=== PATIENT | female | born 1970 | race Caucasian/White ===

== ENCOUNTER → 2020-04-04 | Outpatient (CLI) | payer BC | LOC: RAD 12:42 | PROVIDERS: ATTEND Obstetrics & Gynecology | DX: Z12.31 Encounter for screening mammogram for malignant neoplasm of breast (principal) | CPT/HCPCS: 77063; 77067 ==

== ENCOUNTER 2020-04-25 05:39 | Outpatient (RCR) | payer BC ==
[~2020-04-25] VITALS: Ht 172.7 cm; Wt 70.5 kg
[~2020-04-25 05:39] MED LIST: ADAL20KI SQ; ASCO-262 PO; BACI1TAB3 PO; CYAN100071 PO; SIMV20TA26 PO; bcp PO
== END 2020-04-25 13:28 | disposition home or self-care (01) ==
LOC: PREOP 05:39
PROVIDERS: ATTEND Obstetrics & Gynecology
DX: Z01.818 Encounter for other preprocedural examination (principal); N93.8 Other specified abnormal uterine and vaginal bleeding; Z20.828 Contact with and (suspected) exposure to other viral communicable diseases
CPT/HCPCS: 87635

== ENCOUNTER 2020-04-28 12:10 | Day surgery (SDC) | payer BC ==
[2020-04-28] VITALS (9 sets, daily range): BP systolic 117–159; BP diastolic 68–109
[~2020-04-28] VITALS: Ht 172.7 cm; Wt 70.5 kg
[2020-04-28] MEDS ORDERED: LACTATED RINGERS 1,000 ML IV PRN (12:44)
[2020-04-28] MEDS ORDERED: ceFAZolin INJECTION 1,000 MG in WATER (STERILE) FOR INJECTION 10 ML IV ONE (12:45)
[2020-04-28] MEDS ORDERED: MIDAZOLAM 2 MG/2 ML (VERSED) VIAL ONE (13:00)
[2020-04-28] MEDS ORDERED: proPOfol 200 MG/20 ML (DIPRIVAN) VIAL IV ONE (13:00)
[2020-04-28] MEDS ORDERED: LIDOCAINE PF 2% 5 ML (XYLOCAINE) VIAL ONE (13:00)
[2020-04-28] MEDS ORDERED: SEVOFLURANE (ULTANE) 15 ML INHAL SOLN ONE ×3 (13:00→14:17)
[2020-04-28] MEDS ORDERED: fentaNYL INJECTION 100 MCG/2 ML AMP ONE (13:00)
[2020-04-28 13:06] LABS: BASOPHILS # (AUTO) 0.1 10^3/uL (0.0-0.1); BASOPHILS % (AUTO) 1 % (0-10); EOSINOPHILS # (AUTO) 0.7 10^3/uL (0.0-0.3); EOSINOPHILS % (AUTO) 7 % (0-10); HEMATOCRIT 38 % (35-52); HEMOGLOBIN 12.5 G/DL (11.5-16.0); LYMPHOCYTES # (AUTO) 2.9 X 10^3 (1.0-4.0); LYMPHOCYTES % (AUTO) 28 % (12-44); MEAN CORPUSCULAR HEMOGLOBIN 28 PG (25-34); MEAN CORPUSCULAR HGB CONC 33 G/DL (32-36); MEAN CORPUSCULAR VOLUME 83 FL (80-99); MEAN PLATELET VOLUME 10.4 FL (7.4-10.4); MONOCYTES # (AUTO) 0.9 X 10^3 (0.0-1.0); MONOCYTES % (AUTO) 8 % (0-12); NEUTROPHILS % (AUTO) 57 % (42-75); PLATELET COUNT 342 10^3/uL (130-400); RED CELL DISTRIBUTION WIDTH 15.4 % (10.0-14.5); WHITE BLOOD COUNT 10.6 10^3/uL (4.3-11.0)
--- OUTSIDE RECORDS SUMMARY | 2020-04-28 13:13 | XMS REPORT | CCD ---
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 Role Phone PP Unavailable CCM Unavailable Summary Purpose Interface Exchange Insurance Providers Payer name Policy type / Coverage type Covered republican ID Effective Begin Date Effective End Date Blue Cross Blue Shield [facility] e Cross/Blue Shield [id number] Un known Family history Father Diagnosis Age At Onset Hypothyroid Unknown Hypertension Unknown Side Diagnosis Age At Onset Breast cancer Unknown Mother Diagnosis Age At Onset Cancer Unknown Irritable bowel syndrome Unknown Sister Diagnosis Age At Onset No Family Disease Entered N/A Social History Social History Element Codes Description Effective Dates Number of children in household Unknown 2 03/09/2012 Employment Unknown Curre ntly employed works in [employer] at [employer] in [email or web address] 03/09/[address]: 832836020 Nonsmoker 03/09/[address]: 393916034 Never drinks alcohol 03/09/2012 Allergies, Adverse Reactions, Alerts Substance Reaction Codes Entered Date Inactivated Date Status biaxin RxNorm: 90474 03/09/2012 No Inactive Date Active Past Medical History Illness Codes Condition Status Onset Date Resolved Date Acute laryngopharyng itis ICD-9: 465.0 ICD-10: J06.0 Active 11/23/2018 Unknown Dysuria ICD-9: 788.1 ICD-10: R30.0 Active 04/13/2018 Unknown Other allergic rhinitis ICD-9: 477.8 ICD-10: J30.89 Active 11/23/2018 Unknown Encounter for gyneco logical examination (general) (routine) without abnormal findings ICD-9: V72.31 ICD-10: Z01.419 Active 10/16/2016 Unknown Mixed hyperlipidemia ICD-9: 272.2 ICD-10: E78.2 Active 07/23/2018 Unknown Muscle spasm of back ICD-9: 724.8 ICD-10: M62.830 Active 07/23/2018 Unknown Encounter for genera l adult medical examination with abnormal findings ICD-9: V70.0 ICD-10: Z00.01 Active 11/07/2017 Unknown Other ulcerative col itis without complications ICD-9: 556.8 ICD-10: K51.80 Active 11/07/2017 Unknown Acute bronchitis, un specified ICD-9: 466.0 ICD-10: J20.9 Active 11/04/2016 Unknown Cough ICD-9: 786.2 ICD-10: R05 Active 11/04/2016 Unknown Poison philip ICD-9: 692.6 Active 06/13/2015 Unknow n ACUTE PHARYNGITIS ICD-9: 462 Active 11/01/2014 Unknown Dysplastic nevus of trunk ICD-9: 216.5 Active 07/07 Unknown ROUTINE GYNE EXAM ICD-9: V72.31 Active 06/15/2014 Unknown Skin lesion ICD-9: 709.9 Active 06/15/2014 Unknow n Hyperlipidemia Unknown Active 03/09/2012 Unknow n Ulcerative colitis Unknown Active 03/09/2012 Unknown Problems Condition Codes Effectiv e Dates Condition Status Acute laryngopharyng itis ICD-9: 465.0 ICD-10: J06.0 11/23/2018 Active Dysuria ICD-9: 788.1 ICD-10: R30.0 04/13/2018 Active Other allergic rhinitis ICD-9: 477.8 ICD-10: J30.89 11/23/2018 Active Encounter for gyneco logical examination (general) (routine) without abnormal findings ICD-9: V72.31 ICD-10: Z01.419 10/16/2016 Active Mixed hyperlipidemia ICD-9: 272.2 ICD-10: E78.2 07/23/2018 Active Muscle spasm of back ICD-9: 724.8 ICD-10: M62.830 07/23/2018 Active Encounter for genera l adult medical examination with abnormal findings ICD-9: V70.0 ICD-10: Z00.01 11/07/2017 Active Other ulcerative col itis without complications ICD-9: 556.8 ICD-10: K51.80 11/07/2017 Active Acute bronchitis, un specified ICD-9: 466.0 ICD-10: J20.9 11/04/2016 Active Cough ICD-9: 786.2 ICD-10: R05 11/04/2016 Active Poison philip ICD-9: 692.6 06/13/2015 Active ACUTE PHARYNGITIS ICD-9: 462 11/01/2014 Active Dysplastic nevus of trunk ICD-9: 216.5 07/26/2014 Active ROUTINE GYNE EXAM ICD-9: V72.31 06/15/2014 Active Skin lesion ICD-9: 709.9 06/15/2014 Active Hyperlipidemia Unknown 03/09/2012 Active Ulcerative colitis Unknown 03/09/2012 Active Medications Medication Codes Instruc tions Start Date Stop Date Sta tus Fill Instructions Augmentin 875 mg-125 mg tablet RxNorm: 694932 1 Tablet(s) PO BID 11/23/2018 12/02/2018 Active Keflex 500 mg capsule RxNorm: 987930 1 Capsule(s) PO TID 07/24/2018 07/30/2018 Inactive cyclobenzaprine 5 mg tablet RxNorm: 692094 1 Tablet(s) PO TID as needed muscle spasms 07/24/2018 07/30/2018 Inactive simvastatin 20 mg ta blet RxNorm: 697006 1 Tablet(s) PO daily 07/23/2018 10/20/2018 Inactive simvastatin 10 mg ta blet RxNorm: 891823 TAKE 1 TABLET BY MOUT H ONCE A DAY 04/09/2018 10/05/2018 In active simvastatin 10 mg ta blet RxNorm: 830076 TAKE 1 TABLET BY MOUT H ONCE A DAY 12/12/2017 03/11/2018 In active simvastatin 10 mg ta blet RxNorm: 217888 Tablet(s) TAKE 1 TABL ET BY MOUTH ONCE A DAY 06/12/2017 12/08/2017 In active simvastatin 10 mg ta blet RxNorm: 996971 Tablet(s) TAKE 1 TABL ET BY MOUTH ONCE A DAY 03/05/2017 04/15/2018 In active cefdinir 300 mg capsule RxNorm: 267430 1 Capsule(s) PO BID 11/08/2016 11/07/2016 Inactive cefdinir 300 mg capsule RxNorm: 418438 1 Capsule(s) PO BID 11/08/2016 11/14/2016 Inactive Kenalog 40 mg/mL cielo pension for injection RxNorm: 4686871 1 Milliliter(s) Inj 11/04/2016 11/04/2016 In active Zithromax Z-Remy 250 mg tablet RxNorm: 585060 1 Tablet(s) PO UD 11/04/2016 11/08/2016 Inactive zpack Phenergan with Codei ne Syrup RxNorm: 5-10 Milliliter(s) PO Q6 PRN 11/04/2016 11/03/2017 Inactive simvastatin 10 mg ta blet RxNorm: 832781 Tablet(s) TAKE 1 TABL ET BY MOUTH ONCE A DAY 08/14/2016 02/09/2017 In active simvastatin 10 mg ta blet RxNorm: 240508 1 Tablet(s) PO daily TAKE 1 TABLET BY MOUTH ONCE A DAY 07/25/2015 08/13/2016 Inactive [SAVINGS FOR UNINSURED ESA ENTS -- BIN:[id number], PCN: ASPROD1, Group: [id number], ID# [id number], Process claim through [employer], for questions: . THIS IS NOT INSURANCE.] prednisone 10 mg tab lets in a dose pack RxNorm: 209751 Tablet(s) PO UD 06/22/2015 09/05/2015 In active 6-5-4-3-2-1 schedule Kenalog 40 mg/mL cielo pension for injection RxNorm: 5330923 Milliliter(s) Inj 06/14/2015 06/14/2015 In active amoxicillin 500 mg t ablet RxNorm: 183635 1 Tablet(s) PO TID 11/01/2014 11/10/2014 Inactive Bactrim DS 800 mg-16 0 mg tablet RxNorm: 805169 1 Tablet(s) PO BID 06/28/2014 07/04/2014 Inactive [SAVINGS FOR UNINSURED PATIENTS -- BIN:[id number], PCN: ASPROD1, Group: [id number], ID# [id number], Process claim through [employer], for questions: . THIS IS NOT INSURANCE.] Bactrim DS 800 mg-16 0 mg tablet RxNorm: 980880 1 Tablet(s) PO BID 06/28/2014 06/27/2014 Inactive simvastatin 10 mg ta blet RxNorm: 787550 1 Tablet(s) PO daily TAKE 1 TABLET BY MOUTH ONCE A DAY 06/23/2014 07/24/2015 Inactive [SAVINGS FOR UNINSURED ESA ENTS -- BIN:[id number], PCN: ASPROD1, Group: [id number], ID# [id number], Process claim through [employer], for questions: . THIS IS NOT INSURANCE.] Diflucan 150 mg tablet RxNorm: 996228 1 Tablet(s) PO daily 06/17/2014 06/16/2014 Inactive Diflucan 150 mg tablet RxNorm: 193162 1 Tablet(s) PO daily 06/17/2014 06/23/2014 Inactive [SAVINGS FOR UNINSURED PATIENTS -- BIN:0 [id number], PCN: ASPROD1, Group: [id number], ID# [id number], Process claim through [employer], for questions: . THIS IS NOT INSURANCE.] Seasonique 0.15 mg-3 0 mcg (84)/10 mcg(7) tablets,3 month dose pack RxNorm: 975918 1 Tablet(s) PO daily 06/15/2014 09/05/2015 Inactive [SAVINGS FOR UNINSURED EAS ENTS -- BIN:[id number], PCN: ASPROD1, Group: [id number], ID# [id number], Process claim through [employer], for questions: . THIS IS NOT INSURANCE.] simvastatin 10 mg ta blet RxNorm: 284880 Tablet(s) PO TAKE 1 T ABLET BY MOUTH ONCE A DAY 10/25/2013 06/22/2014 Inactive potassium chloride E R 20 mEq tablet,extended release(part/cryst) RxNorm: 4195859 1 Tablet(s) PO daily 11/03/2012 11/16/2012 Inactive potassium chloride E R 20 mEq tablet,extended release(part/cryst) RxNorm: 8716234 1 Tablet(s) PO daily 11/03/2012 11/02/2012 Inactive simvastatin 10 mg ta blet RxNorm: 545309 1 Tablet(s) PO daily 11/03/2012 07/30/2013 Inactive simvastatin 10 mg ta blet RxNorm: 408293 1 Tablet(s) PO daily needs labs 10/14/2012 11/02/2012 In active simvastatin 10 mg ta blet RxNorm: 770949 1 Tablet(s) PO daily 09/24/2011 01/21/2012 Inactive Humira subcutaneous RxNorm: 706442 subcutaneous No Start Date Active Vitamin C 1,000 mg t ablet RxNorm: 004627 1 Tablet(s) PO daily No Start Date Active Vitamin B-12 1,000 m cg tablet RxNorm: 667563 1 Tablet(s) PO daily No Start Date Active Probiotic oral RxNorm: 6205 oral No Start Date Active Remicade 100 mg IV S olution RxNorm: 295178 IV every 8 weeks No Start Date 09/05/2015 Inactive Fish Oil 360 mg-1,20 0 mg capsule RxNorm: 377604 1 Capsule(s) PO BID No Start Date 11/03/2017 Inactive prednisone 10 mg tab lets in a dose pack RxNorm: 435020 Tablet(s) PO UD No Start Date 06/21/2015 Inactive 6-5-4-3-2-1 schedule Medication Administered Medication Codes Instruc tions Start Date Status Kenalog 40 mg/mL suspension for injection RxNorm: 1022824 1Milliliter 11/04/2016 N o longer Active Kenalog 40 mg/mL suspension for injection RxNorm: 8101875 Milliliter 06/14/2015 No longer Active Immunizations No Immunization data Assessments Condition Codes Effectiv e Dates Acute laryngopharyngitis ICD-10: J06 .0 ICD-9: 465.0 11/23/2018 Other allergic rhinitis ICD-10: J30. 89 ICD-9: 477.8 11/23/2018 Dysuria ICD-10: R30.0 ICD-9: 788.1 11/23/2018 Encounter for gynecological examination (general) (routine) without abnormal findings ICD-10: Z01.419 ICD-9: V72.31 11/09/2018 Muscle spasm of back ICD-10: M62.830 ICD-9: 724.8 07/23/2018 Mixed hyperlipidemia ICD-10: E78.2 ICD-9: 272.2 07/23/2018 Encounter for general adult medical exam ination with abnormal findings ICD-10: Z00.01 ICD-9: V70.0 11/07/2017 Other ulcerative colitis without complications ICD-10: K51.80 ICD-9: 556.8 11/07/2017 Acute bronchitis, unspecified ICD-10 : J20.9 ICD-9: 466.0 11/04/2016 Cough ICD-10: R05 ICD-9: 786.2 11/04/2016 Poison philip ICD-9: 692.6 06/14/2015 ACUTE PHARYNGITIS ICD-9: 462 11/01/2014 Skin lesion ICD-9: 709.9 07/26/2014 Dysplastic nevus of trunk ICD-9: 216.5 07/26/2014 ROUTINE GYNE EXAM ICD-9: V72.31 06/15/2014 Reason For Visit Reason For Visit Effective Dates Notes sinus congestion 11/23/2018 well woman exam (40-65 years) 11/09/2018 flank pain 07/23/2018 flank pain 04/16/2018 well woman exam (40-65 years) 11/07/2017 chest tightness 11/04/2016 well woman exam (40-65 years) 10/17/2016 well woman exam (40-65 years) 09/06/2015 sore throat 11/01/2014 office procedure 07/26/2014 dark areas on back well woman exam (40-65 years) 06/15/2014 well woman exam (40-65 years) 07/15/2013 well woman exam (40-65 years) 03/09/2012 Results Observation Observation Code Item Item Code Result Date Urine Culture Ucult Comp lete >100,000 col/ml aerobic grow th sent to ref lab 11/24/2018 Culture Urine [id number] URI NE CULTURE SEE NOTES 07/30/2018 Urine Culture Ucult Prel iminary NO Growth Day 1 07/29 Urine Culture Ucult Comp lete Growth of aerobe sent to ref lab 07/29/2018 GC/CHL PRB [id number] CHLM PROBE NEG 06/17/2014 GC/CHL PRB [id number] GC NM OBE NEG 06/17/2014 GC/CHL PRB [id number] CHLM PROBE NEG 07/16/2013 GC/CHL PRB 1008723 GC NM OBE NEG 07/16/2013 Review of Systems System Result Effective Dates Constitutional recent illness 11/23/2018 Constitutional chills Constitutional No diaphoresis 11/23/2018 Constitutional fever Eyes No eye erythema Ears/Nose/Throat/Neck nasal allergies 11/23/2018 Ears/Nose/Throat/Neck nasal discharge 11/23/2018 Ears/Nose/Throat/Neck postnasal drip 11/23/2018 Ears/Nose/Throat/Neck sinus congestion 11/23/2018 Ears/Nose/Throat/Neck sore throat 11/23/2018 Cardiovascular No chest pain/pressure 11/23/2018 Cardiovascular No dyspnea 11/23/2018 Respiratory No chest congestion 11/23/2018 Respiratory cough 2018 Respiratory No dyspnea 0 11/23/2018 Gastrointestinal No constipation 11/23/2018 Gastrointestinal No diarrhea 11/23/2018 Gastrointestinal No nausea 11/23/2018 Gastrointestinal No vomiting 11/23/2018 Dermatologic No rash Neurologic No alteration of consciousness 11/23/2018 Neurologic No mental status change 11/23/2018 Genitourinary/Nephrology dysuria 11/23/2018 Constitutional No recent illness 11/09/2018 Constitutional No chills 11/09/2018 Constitutional No diaphoresis 11/09/2018 Constitutional No fever 11/09/2018 Eyes No blindness 2018 Ears/Nose/Throat/Neck No nasal allergies 11/09/2018 Ears/Nose/Throat/Neck No nasal discharge 11/09/2018 Cardiovascular No chest pain/pressure 11/09/2018 Cardiovascular No dyspnea 11/09/2018 Cardiovascular No edema 11/09/2018 Respiratory No chest congestion 11/09/2018 Respiratory No cough 01/2019 Respiratory No dyspnea 0 11/09/2018 Gastrointestinal No abdominal pain 11/09/2018 Gastrointestinal No constipation 11/09/2018 Gastrointestinal No diarrhea 11/09/2018 Gastrointestinal No nausea 11/09/2018 Gastrointestinal No vomiting 11/09/2018 Genitourinary/Nephrology No dysuria 11/09/2018 Musculoskeletal No joint complaint 11/09/2018 Dermatologic No rash 01/2019 Neurologic No alteration of consciousness 11/09/2018 Neurologic No mental status change 11/09/2018 Eyes No eye discharge Eyes No eye erythema Cardiovascular No chest pain/pressure 07/23/2018 Cardiovascular No dyspnea 07/23/2018 Cardiovascular No edema 07/23/2018 Respiratory No productive sputum 07/23/2018 Respiratory No cough Gastrointestinal No abdominal pain 07/23/2018 Gastrointestinal No constipation 07/23/2018 Gastrointestinal No diarrhea 07/23/2018 Genitourinary/Nephrology dysuria 07/23/2018 Genitourinary/Nephrology No pelvic pain 07/23/2018 Genitourinary/Nephrology urinary urgency 07/23/2018 Musculoskeletal No joint complaint 07/23/2018 Dermatologic No rash Neurologic No alteration of consciousness 07/23/2018 Constitutional recent illness 07/23/2018 Constitutional No chills 07/23/2018 Constitutional No diaphoresis 07/23/2018 Constitutional No fever 07/23/2018 Ears/Nose/Throat/Neck No nasal discharge 07/23/2018 Ears/Nose/Throat/Neck No nasal allergies 07/23/2018 Genitourinary/Nephrology flank pain 07/23/2018 Constitutional No recent illness 04/16/2018 Constitutional No anorexia 04/16/2018 Constitutional No night sweats 04/16/2018 Constitutional No chills 04/16/2018 Constitutional No diaphoresis 04/16/2018 Constitutional No fatigue 04/16/2018 Constitutional No fever 04/16/2018 Constitutional No insomnia 04/16/2018 Constitutional No malaise 04/16/2018 Constitutional No weight loss 04/16/2018 Constitutional No weight gain 04/16/2018 Eyes No eye erythema 09/2018 Eyes No eye discharge Ears/Nose/Throat/Neck No dizziness 04/16/2018 Ears/Nose/Throat/Neck No headache 04/16/2018 Cardiovascular No chest pain/pressure 04/16/2018 Cardiovascular No dyspnea 04/16/2018 Cardiovascular No edema 04/16/2018 Respiratory No productive sputum 04/16/2018 Respiratory No cough 09/2018 Gastrointestinal No abdominal pain 04/16/2018 Gastrointestinal No constipation 04/16/2018 Gastrointestinal No diarrhea 04/16/2018 Genitourinary/Nephrology dysuria 04/16/2018 Genitourinary/Nephrology urinary urgency 04/16/2018 Genitourinary/Nephrology No pelvic pain 04/16/2018 Musculoskeletal No joint complaint 04/16/2018 Dermatologic No rash 09/2018 Neurologic No alteration of consciousness 04/16/2018 Musculoskeletal back pain 04/16/2018 Constitutional No recent illness 11/07/2017 Constitutional No chills 11/07/2017 Constitutional No diaphoresis 11/07/2017 Constitutional No fever 11/07/2017 Eyes No eye erythema 11/2017 Ears/Nose/Throat/Neck No nasal discharge 11/07/2017 Ears/Nose/Throat/Neck No nasal allergies 11/07/2017 Cardiovascular No chest pain/pressure 11/07/2017 Cardiovascular No dyspnea 11/07/2017 Cardiovascular No edema 11/07/2017 Respiratory No chest congestion 11/07/2017 Respiratory No cough 11/2017 Respiratory No dyspnea 0 11/07/2017 Gastrointestinal No abdominal pain 11/07/2017 Gastrointestinal No constipation 11/07/2017 Gastrointestinal No diarrhea 11/07/2017 Gastrointestinal No vomiting 11/07/2017 Gastrointestinal No nausea 11/07/2017 Genitourinary/Nephrology No dysuria 11/07/2017 Musculoskeletal No joint complaint 11/07/2017 Dermatologic No rash 11/2017 Neurologic No alteration of consciousness 11/07/2017 Neurologic No mental status change 11/07/2017 Constitutional recent illness 11/04/2016 Constitutional No anorexia 11/04/2016 Constitutional No night sweats 11/04/2016 Constitutional chills Constitutional diaphoresis 11/04/2016 Constitutional fatigue 0 11/04/2016 Constitutional fever Constitutional No insomnia 11/04/2016 Constitutional No malaise 11/04/2016 Constitutional No weight loss 11/04/2016 Constitutional No weight gain 11/04/2016 Dermatologic No rash Dermatologic No sores Neurologic No alteration of consciousness 11/04/2016 Musculoskeletal No joint complaint 11/04/2016 Musculoskeletal No myalgias 11/04/2016 Genitourinary/Nephrology No dysuria 11/04/2016 Gastrointestinal No constipation 11/04/2016 Gastrointestinal No diarrhea 11/04/2016 Respiratory cough 2016 Respiratory No productive sputum 11/04/2016 Cardiovascular No chest pain/pressure 11/04/2016 Ears/Nose/Throat/Neck No dizziness 11/04/2016 Ears/Nose/Throat/Neck headache 11/04/2016 Ears/Nose/Throat/Neck nasal discharge 11/04/2016 Ears/Nose/Throat/Neck otalgia 11/04/2016 Ears/Nose/Throat/Neck sinus congestion 11/04/2016 Ears/Nose/Throat/Neck sore throat 11/04/2016 Eyes No eye discharge Eyes No eye erythema Constitutional No recent illness 10/17/2016 Constitutional No fatigue 10/17/2016 Constitutional No fever 10/17/2016 Constitutional No insomnia 10/17/2016 Eyes No eye discharge Eyes No eye erythema 09/2017 Ears/Nose/Throat/Neck No headache 10/17/2016 Cardiovascular No chest pain/pressure 10/17/2016 Cardiovascular No edema 10/17/2016 Cardiovascular No near-syncope/dizziness 10/17/2016 Cardiovascular No syncope 10/17/2016 Respiratory No productive sputum 10/17/2016 Respiratory No chest congestion 10/17/2016 Respiratory No chest tightness 10/17/2016 Respiratory No cough 09/2017 Respiratory No dyspnea 0 10/17/2016 Gastrointestinal No abdominal pain 10/17/2016 Gastrointestinal No constipation 10/17/2016 Gastrointestinal No diarrhea 10/17/2016 Genitourinary/Nephrology No breast c omplaint 10/17/2016 Genitourinary/Nephrology No dysuria 10/17/2016 Genitourinary/Nephrology No hematuria 10/17/2016 Genitourinary/Nephrology No menopaus al symptoms 10/17/2016 Genitourinary/Nephrology No nocturia 10/17/2016 Genitourinary/Nephrology No Pap smea r abnormality 10/17/2016 Genitourinary/Nephrology No urinary urgenc y 10/17/2016 Genitourinary/Nephrology No urinary frequency 10/17/2016 Genitourinary/Nephrology No urinary incontinence 10/17/2016 Genitourinary/Nephrology No vaginal discharge 10/17/2016 Musculoskeletal No joint complaint 10/17/2016 Neurologic No alteration of consciousness 10/17/2016 Constitutional No recent illness 09/06/2015 Constitutional No fatigue 09/06/2015 Constitutional No fever 09/06/2015 Constitutional No insomnia 09/06/2015 Eyes No eye discharge Eyes No eye erythema 11/2014 Ears/Nose/Throat/Neck No headache 09/06/2015 Cardiovascular No chest pain/pressure 09/06/2015 Cardiovascular No edema 09/06/2015 Cardiovascular No near-syncope/dizziness 09/06/2015 Cardiovascular No syncope 09/06/2015 Respiratory No productive sputum 09/06/2015 Respiratory No chest congestion 09/06/2015 Respiratory No chest tightness 09/06/2015 Respiratory No cough 11/2014 Respiratory No dyspnea 1 11/07/2014 Gastrointestinal No abdominal pain 09/06/2015 Gastrointestinal No constipation 09/06/2015 Gastrointestinal No diarrhea 09/06/2015 Genitourinary/Nephrology No breast c omplaint 09/06/2015 Genitourinary/Nephrology No dysuria 09/06/2015 Genitourinary/Nephrology No hematuria 09/06/2015 Genitourinary/Nephrology No menopaus al symptoms 09/06/2015 Genitourinary/Nephrology No nocturia 09/06/2015 Genitourinary/Nephrology No Pap smea r abnormality 09/06/2015 Genitourinary/Nephrology No urinary urgenc y 09/06/2015 Genitourinary/Nephrology No urinary frequency 09/06/2015 Genitourinary/Nephrology No urinary incontinence 09/06/2015 Genitourinary/Nephrology No vaginal discharge 09/06/2015 Musculoskeletal No joint complaint 09/06/2015 Neurologic No alteration of consciousness 09/06/2015 Constitutional recent illness 11/01/2014 Constitutional No anorexia 11/01/2014 Constitutional No night sweats 11/01/2014 Constitutional No chills 11/01/2014 Constitutional No diaphoresis 11/01/2014 Constitutional No fatigue 11/01/2014 Constitutional No fever 11/01/2014 Constitutional No insomnia 11/01/2014 Constitutional No malaise 11/01/2014 Constitutional No weight loss 11/01/2014 Constitutional No weight gain 11/01/2014 Eyes No eye erythema Eyes No eye discharge Ears/Nose/Throat/Neck No headache 11/01/2014 Ears/Nose/Throat/Neck No nasal allergies 11/01/2014 Ears/Nose/Throat/Neck nasal discharge 11/01/2014 Ears/Nose/Throat/Neck otalgia 11/01/2014 Ears/Nose/Throat/Neck sinus congestion 11/01/2014 Ears/Nose/Throat/Neck sore throat 11/01/2014 Respiratory No productive sputum 11/01/2014 Respiratory No chest congestion 11/01/2014 Respiratory cough 2014 Cardiovascular No chest pain/pressure 11/01/2014 Gastrointestinal No vomiting 11/01/2014 Gastrointestinal No nausea 11/01/2014 Genitourinary/Nephrology No dysuria 11/01/2014 Musculoskeletal No joint complaint 11/01/2014 Dermatologic No sores Dermatologic No rash Constitutional No recent illness 06/15/2014 Constitutional No fatigue 06/15/2014 Constitutional No fever 06/15/2014 Constitutional No insomnia 06/15/2014 Eyes No eye discharge Eyes No eye erythema 07/2014 Ears/Nose/Throat/Neck No headache 06/15/2014 Cardiovascular No chest pain/pressure 06/15/2014 Cardiovascular No edema 06/15/2014 Cardiovascular No near-syncope/dizziness 06/15/2014 Cardiovascular No syncope 06/15/2014 Respiratory No productive sputum 06/15/2014 Respiratory No chest congestion 06/15/2014 Respiratory No chest tightness 06/15/2014 Respiratory No cough 07/2014 Respiratory No dyspnea 0 06/15/2014 Gastrointestinal No abdominal pain 06/15/2014 Gastrointestinal No constipation 06/15/2014 Gastrointestinal No diarrhea 06/15/2014 Genitourinary/Nephrology No breast c omplaint 06/15/2014 Genitourinary/Nephrology No dysuria 06/15/2014 Genitourinary/Nephrology No hematuria 06/15/2014 Genitourinary/Nephrology No menopaus al symptoms 06/15/2014 Genitourinary/Nephrology No nocturia 06/15/2014 Genitourinary/Nephrology No Pap smea r abnormality 06/15/2014 Genitourinary/Nephrology No urinary urgenc y 06/15/2014 Genitourinary/Nephrology No urinary frequency 06/15/2014 Genitourinary/Nephrology No urinary incontinence 06/15/2014 Genitourinary/Nephrology No vaginal discharge 06/15/2014 Musculoskeletal No joint complaint 06/15/2014 Neurologic No alteration of consciousness 06/15/2014 Dermatologic mole change 06/15/2014 Psychiatric No anxiety 0 06/15/2014 Psychiatric No depression 06/15/2014 Cardiovascular No chest pain/pressure 07/15/2013 Cardiovascular No edema 07/15/2013 Cardiovascular No near-syncope/dizziness 07/15/2013 Cardiovascular No syncope 07/15/2013 Constitutional No fatigue 07/15/2013 Constitutional No fever 07/15/2013 Constitutional No insomnia 07/15/2013 Constitutional No recent illness 07/15/2013 Ears/Nose/Throat/Neck No headache 07/15/2013 Eyes No eye discharge Eyes No eye erythema 07/2013 Gastrointestinal No abdominal pain 07/15/2013 Gastrointestinal No constipation 07/15/2013 Gastrointestinal No diarrhea 07/15/2013 Genitourinary/Nephrology No breast c omplaint 07/15/2013 Genitourinary/Nephrology No dysuria 07/15/2013 Genitourinary/Nephrology No hematuria 07/15/2013 Genitourinary/Nephrology No urinary frequency 07/15/2013 Genitourinary/Nephrology No urinary incontinence 07/15/2013 Genitourinary/Nephrology No urinary urgenc y 07/15/2013 Genitourinary/Nephrology No vaginal discharge 07/15/2013 Genitourinary/Nephrology No menopaus al symptoms 07/15/2013 Genitourinary/Nephrology No nocturia 07/15/2013 Genitourinary/Nephrology No Pap smea r abnormality 07/15/2013 Musculoskeletal No joint complaint 07/15/2013 Neurologic No alteration of consciousness 07/15/2013 Respiratory No chest congestion 07/15/2013 Respiratory No chest tightness 07/15/2013 Respiratory No cough 07/2013 Respiratory No dyspnea 1 Respiratory No productive sputum 07/15/2013 Constitutional No fatigue 03/09/2012 Constitutional No fever 03/09/2012 Constitutional No insomnia 03/09/2012 Constitutional No recent illness 03/09/2012 Eyes No eye discharge Eyes No eye erythema 01/2012 Ears/Nose/Throat/Neck No headache 03/09/2012 Cardiovascular No chest pain/pressure 03/09/2012 Cardiovascular No edema 03/09/2012 Cardiovascular No near-syncope/dizziness 03/09/2012 Cardiovascular No syncope 03/09/2012 Respiratory No chest congestion 03/09/2012 Respiratory No chest tightness 03/09/2012 Respiratory No cough 01/2012 Respiratory No dyspnea 0 03/09/2012 Respiratory No productive sputum 03/09/2012 Gastrointestinal No abdominal pain 03/09/2012 Gastrointestinal No constipation 03/09/2012 Gastrointestinal No diarrhea 03/09/2012 Genitourinary/Nephrology No breast c omplaint 03/09/2012 Genitourinary/Nephrology No dysuria 03/09/2012 Genitourinary/Nephrology No hematuria 03/09/2012 Genitourinary/Nephrology No urinary frequency 03/09/2012 Genitourinary/Nephrology No urinary incontinence 03/09/2012 Genitourinary/Nephrology No urinary urgenc y 03/09/2012 Genitourinary/Nephrology No vaginal discharge 03/09/2012 Genitourinary/Nephrology No menopaus al symptoms 03/09/2012 Genitourinary/Nephrology No nocturia 03/09/2012 Genitourinary/Nephrology No Pap smea r abnormality 03/09/2012 Musculoskeletal No joint complaint 03/09/2012 Neurologic No alteration of consciousness 03/09/2012 Physical Exam Exam Name System Name It em Name Status Result Effective Dates Notes Full Exam - ENT Constitutional general appearance Overall: well nourished 11/23/2018 None Full Exam - ENT Constitutional general appearance Overall: well developed 11/23/2018 None Full Exam - ENT Constitutional general appearance Overall: in no acute distress 11/23/2018 None Full Exam - ENT Ears/Nose/Throat otoscopic exam Overall: external auditory canals normal 11/23/2018 None Full Exam - ENT Ears/Nose/Throat otoscopic exam Left tympanic membrane: air-fluid le melanie 11/23/2018 None Full Exam - ENT Ears/Nose/Throat otoscopic exam Right tympanic membrane: air-fluid level 11/23/2018 None Full Exam - ENT Ears/Nose/Throat lips/teeth/gingiva Overall: benign lips 11/23/2018 None Full Exam - ENT Ears/Nose/Throat oropharynx Overall: oral mucosa clear 11/23/2018 None Full Exam - ENT Ears/Nose/Throat oropharynx Posterior Pharynx: clear post nasal drainage 11/23/2018 None Full Exam - ENT Ears/Nose/Throat oropharynx Posterior Pharynx: erythema 11/23/2018 None Full Exam - ENT Respiratory inspection Overall: no retractions 11/23/2018 None Full Exam - ENT Respiratory inspection Overall: normal rate None Full Exam - ENT Respiratory auscultation Overall: breath sounds clear bilater ally 11/23/2018 None Full Exam - ENT Cardiovascular auscultation of heart Rate: normal rate 11/23/2018 None Full Exam - ENT Cardiovascular auscultation of heart Rhythm: regular rhythm 11/23/2018 None Full Exam - ENT Lymphatic palpation of lymph nodes Overall: anterior cervical chain benign 11/23/2018 None Full Exam - ENT Lymphatic palpation of lymph nodes Overall: posterior cervical chain benign 11/23/2018 None Full Exam - ENT Neurologic mood and affect Overall: normal mood 11/23/2018 None Full Exam - ENT Neurologic mood and affect Overall: normal affect 11/23/2018 None Full Exam - ENT Neurologic orientation Overall: oriented to person, place a nd time 11/23/2018 None Full Exam - General 1994 Constitutional general appearance Overall: well developed 11/09/2018 None Full Exam - General 1994 Constitutional general appearance Overall: in no acute distress 11/09/2018 None Full Exam - General 1994 Constitutional general appearance Overall: well nourished 11/09/2018 None Full Exam - General 1995 Eyes conjunctiva/eyelids Overall: conjunctiva clear 11/09/2018 None Full Exam - General 1994 Eyes conjunctiva/eyelids Overall: cornea clear 11/09/2018 None Full Exam - General 1994 Eyes conjunctiva/eyelids Overall: eyelids normal 11/09/2018 None Full Exam - General 1994 Eyes pupils and irises Overall: pupils equal, round, reactive to light and accomodation 11/09/2018 None Full Exam - General 1994 Ears/Nose/Throat otoscopic exam Overall: external auditory canals clear 11/09/2018 None Full Exam - General 1994 Ears/Nose/Throat otoscopic exam Overall: tympanic membranes clear 11/09/2018 None Full Exam - General 1994 Ears/Nose/Throat lips/teeth/gingiva Overall: benign lips 11/09/2018 None Full Exam - General 1994 Ears/Nose/Throat oral cavity/pharynx/larynx Overall: oral mucosa clear 11/09/2018 None Full Exam - General 1994 Ears/Nose/Throat oral cavity/pharynx/larynx Overall: oropharyngeal mucosa clear 11/09/2018 None Full Exam - General 1994 Respiratory auscultation Overall: breath sounds clear bilaterally 11/09/2018 None Full Exam - General 1994 Respiratory respiratory effort/rhythm Overall: no retractions 11/09/2018 None Full Exam - General 1994 Respiratory respiratory effort/rhythm Overall: normal rate 11/09/2018 None Full Exam - General 1994 Cardiovascular auscultation of heart Overall: regular rate 11/09/2018 None Full Exam - General 1994 Cardiovascular auscultation of heart Overall: normal heart sounds 11/09/2018 None Full Exam - General 1994 Abdomen abdominal exam Overall: no tenderness 11/09/2018 None Full Exam - General 1994 Abdomen abdominal exam Overall: normal bowel sounds 11/09/2018 None Full Exam - General 1994 Lymphatic neck nodes Overall: anterior cervical chain benign 11/09/2018 None Full Exam - General 1994 Lymphatic neck nodes Overall: posterior cervical chain benign 11/09/2018 None Full Exam - General 1994 Musculoskeletal gait and station Overall: normal gait 11/09/2018 None Full Exam - General 1994 Musculoskeletal gait and station Overall: normal station 11/09/2018 None Full Exam - General 1994 Musculoskeletal head and neck Overall: head atraumatic 11/09/2018 None Full Exam - General 1994 Neurologic cranial nerves Overall: crainial nerves 2 - 12 grossly intact 11/09/2018 None Full Exam - General 1994 Psychiatric orientation/consciousness Overall: oriented to person, place and time 11/09/2018 None Full Exam - General 1994 Psychiatric mood and affect Overall: normal mood and affect 11/09/2018 None Full Exam - General 1994 Psychiatric appearance Overall: well-groomed, good eye contact 11/09/2018 None Full Exam - General 1994 Genitourinary uterus Overall: normal size 11/09/2018 None Full Exam - General 1994 Genitourinary cervix Motion tenderness: not present 11/09/2018 None Full Exam - General 1994 Genitourinary cervix Overall: no discharge 11/09/2018 None Full Exam - General 1994 Genitourinary labia and vagina Overall: no lesions 11/09/2018 None Full Exam - General 1994 Genitourinary labia and vagina Overall: normal hair distribution 11/09/2018 None Full Exam - General 1994 Genitourinary adnexa/parametria Overall: no tenderness 11/09/2018 None Full Exam - General 1994 Chest/Breast breast/chest inspection Overall: normal chest shape 11/09/2018 None Full Exam - General 1994 Chest/Breast breast/chest inspection Overall: breasts to symmetric and without lesions 11/09/2018 None Full Exam - General 1994 Constitutional general appearance Overall: well developed 07/23/2018 None Full Exam - General 1994 Constitutional general appearance Overall: in no acute distress 07/23/2018 None Full Exam - General 1994 Constitutional general appearance Overall: well nourished 07/23/2018 None Full Exam - General 1994 Eyes conjunctiva/eyelids Overall: conjunctiva clear 07/23/2018 None Full Exam - General 1994 Eyes conjunctiva/eyelids Overall: cornea clear 07/23/2018 None Full Exam - General 1994 Eyes conjunctiva/eyelids Overall: eyelids normal 07/23/2018 None Full Exam - General 1994 Eyes pupils and irises Overall: pupils equal, round, reactive to light and accomodation 07/23/2018 None Full Exam - General 1994 Ears/Nose/Throat otoscopic exam Overall: external auditory canals clear 07/23/2018 None Full Exam - General 1994 Ears/Nose/Throat otoscopic exam Overall: tympanic membranes clear 07/23/2018 None Full Exam - General 1994 Ears/Nose/Throat lips/teeth/gingiva Overall: benign lips 07/23/2018 None Full Exam - General 1994 Ears/Nose/Throat oral cavity/pharynx/larynx Overall: oral mucosa clear 07/23/2018 None Full Exam - General 1994 Ears/Nose/Throat oral cavity/pharynx/larynx Overall: oropharyngeal mucosa clear 07/23/2018 None Full Exam - General 1994 Respiratory auscultation Overall: breath sounds clear bilaterally 07/23/2018 None Full Exam - General 1994 Respiratory respiratory effort/rhythm Overall: no retractions 07/23/2018 None Full Exam - General 1994 Respiratory respiratory effort/rhythm Overall: normal rate 07/23/2018 None Full Exam - General 1994 Cardiovascular auscultation of heart Overall: regular rate 07/23/2018 None Full Exam - General 1994 Cardiovascular auscultation of heart Overall: normal heart sounds 07/23/2018 None Full Exam - General 1994 Abdomen abdominal exam Overall: no tenderness 07/23/2018 None Full Exam - General 1994 Abdomen abdominal exam Overall: normal bowel sounds 07/23/2018 None Full Exam - General 1994 Musculoskeletal gait and station Overall: normal gait 07/23/2018 None Full Exam - General 1994 Musculoskeletal gait and station Overall: normal station 07/23/2018 None Full Exam - General 1994 Musculoskeletal head and neck Overall: head atraumatic 07/23/2018 None Full Exam - General 1994 Neurologic cranial nerves Overall: crainial nerves 2 - 12 grossly intact 07/23/2018 None Full Exam - General 1994 Psychiatric orientation/consciousness Overall: oriented to person, place and time 07/23/2018 None Full Exam - General 1994 Psychiatric mood and affect Overall: normal mood and affect 07/23/2018 None Full Exam - General 1994 Psychiatric appearance Overall: well-groomed, good eye contact 07/23/2018 None Full Exam - General 1994 Constitutional general appearance Overall: well developed 04/16/2018 None Full Exam - General 1994 Constitutional general appearance Overall: in no acute distress 04/16/2018 None Full Exam - General 1994 Constitutional general appearance Overall: well nourished 04/16/2018 None Full Exam - General 1994 Eyes conjunctiva/eyelids Overall: conjunctiva clear 04/16/2018 None Full Exam - General 1994 Eyes conjunctiva/eyelids Overall: cornea clear 04/16/2018 None Full Exam - General 1994 Eyes conjunctiva/eyelids Overall: eyelids normal 04/16/2018 None Full Exam - General 1994 Eyes pupils and irises Overall: pupils equal, round, reactive to light and accomodation 04/16/2018 None Full Exam - General 1994 Ears/Nose/Throat otoscopic exam Overall: external auditory canals clear 04/16/2018 None Full Exam - General 1994 Ears/Nose/Throat otoscopic exam Overall: tympanic membranes clear 04/16/2018 None Full Exam - General 1994 Ears/Nose/Throat lips/teeth/gingiva Overall: benign lips 04/16/2018 None Full Exam - General 1994 Ears/Nose/Throat oral cavity/pharynx/larynx Overall: oral mucosa clear 04/16/2018 None Full Exam - General 1994 Ears/Nose/Throat oral cavity/pharynx/larynx Overall: oropharyngeal mucosa clear 04/16/2018 None Full Exam - General 1994 Respiratory auscultation Overall: breath sounds clear bilaterally 04/16/2018 None Full Exam - General 1994 Respiratory respiratory effort/rhythm Overall: no retractions 04/16/2018 None Full Exam - General 1994 Respiratory respiratory effort/rhythm Overall: normal rate 04/16/2018 None Full Exam - General 1994 Cardiovascular auscultation of heart Overall: regular rate 04/16/2018 None Full Exam - General 1994 Cardiovascular auscultation of heart Overall: normal heart sounds 04/16/2018 None Full Exam - General 1994 Abdomen abdominal exam Overall: no tenderness 04/16/2018 None Full Exam - General 1994 Abdomen abdominal exam Overall: normal bowel sounds 04/16/2018 None Full Exam - General 1994 Lymphatic neck nodes Overall: anterior cervical chain benign 04/16/2018 None Full Exam - General 1994 Lymphatic neck nodes Overall: posterior cervical chain benign 04/16/2018 None Full Exam - General 1994 Musculoskeletal gait and station Overall: normal gait 04/16/2018 None Full Exam - General 1994 Musculoskeletal gait and station Overall: normal station 04/16/2018 None Full Exam - General 1994 Musculoskeletal head and neck Overall: head atraumatic 04/16/2018 None Full Exam - General 1994 Neurologic cranial nerves Overall: crainial nerves 2 - 12 grossly intact 04/16/2018 None Full Exam - General 1994 Psychiatric orientation/consciousness Overall: oriented to person, place and time 04/16/2018 None Full Exam - General 1994 Psychiatric mood and affect Overall: normal mood and affect 04/16/2018 None Full Exam - General 1994 Psychiatric appearance Overall: well-groomed, good eye contact 04/16/2018 None Full Exam - General 1994 Constitutional general appearance Overall: well developed 11/07/2017 None Full Exam - General 1994 Constitutional general appearance Overall: in no acute distress 11/07/2017 None Full Exam - General 1994 Constitutional general appearance Overall: well nourished 11/07/2017 None Full Exam - General 1994 Eyes conjunctiva/eyelids Overall: conjunctiva clear 11/07/2017 None Full Exam - General 1994 Eyes conjunctiva/eyelids Overall: cornea clear 11/07/2017 None Full Exam - General 1994 Eyes conjunctiva/eyelids Overall: eyelids normal 11/07/2017 None Full Exam - General 1994 Eyes pupils and irises Overall: pupils equal, round, reactive to light and accomodation 11/07/2017 None Full Exam - General 1994 Ears/Nose/Throat otoscopic exam Overall: tympanic membranes clear 11/07/2017 None Full Exam - General 1994 Ears/Nose/Throat otoscopic exam Overall: external auditory canals clear 11/07/2017 None Full Exam - General 1994 Ears/Nose/Throat lips/teeth/gingiva Overall: benign lips 11/07/2017 None Full Exam - General 1994 Ears/Nose/Throat oral cavity/pharynx/larynx Overall: oral mucosa clear 11/07/2017 None Full Exam - General 1994 Ears/Nose/Throat oral cavity/pharynx/larynx Overall: oropharyngeal mucosa clear 11/07/2017 None Full Exam - General 1994 Respiratory auscultation Overall: breath sounds clear bilaterally 11/07/2017 None Full Exam - General 1994 Respiratory respiratory effort/rhythm Overall: no retractions 11/07/2017 None Full Exam - General 1994 Respiratory respiratory effort/rhythm Overall: normal rate 11/07/2017 None Full Exam - General 1994 Cardiovascular auscultation of heart Overall: normal heart sounds 11/07/2017 None Full Exam - General 1994 Cardiovascular auscultation of heart Overall: regular rate 11/07/2017 None Full Exam - General 1994 Abdomen abdominal exam Overall: normal bowel sounds 11/07/2017 None Full Exam - General 1994 Abdomen abdominal exam Overall: no tenderness 11/07/2017 None Full Exam - General 1994 Lymphatic neck nodes Overall: posterior cervical chain benign 11/07/2017 None Full Exam - General 1994 Lymphatic neck nodes Overall: anterior cervical chain benign 11/07/2017 None Full Exam - General 1994 Musculoskeletal head and neck Overall: head atraumatic 11/07/2017 None Full Exam - General 1994 Musculoskeletal gait and station Overall: normal gait 11/07/2017 None Full Exam - General 1994 Musculoskeletal gait and station Overall: normal station 11/07/2017 None Full Exam - General 1994 Neurologic cranial nerves Overall: crainial nerves 2 - 12 grossly intact 11/07/2017 None Full Exam - General 1994 Psychiatric orientation/consciousness Overall: oriented to person, place and time 11/07/2017 None Full Exam - General 1994 Psychiatric mood and affect Overall: normal mood and affect 11/07/2017 None Full Exam - General 1994 Psychiatric appearance Overall: well-groomed, good eye contact 11/07/2017 None Full Exam - ENT Constitutional general appearance Overall: well nourished 11/04/2016 None Full Exam - ENT Constitutional general appearance Overall: well developed 11/04/2016 None Full Exam - ENT Constitutional general appearance Overall: in no acute distress 11/04/2016 None Full Exam - ENT Ears/Nose/Throat otoscopic exam Overall: external auditory canals normal 11/04/2016 None Full Exam - ENT Ears/Nose/Throat otoscopic exam Left tympanic membrane: air-fluid le melanie 11/04/2016 None Full Exam - ENT Ears/Nose/Throat otoscopic exam Right tympanic membrane: air-fluid level 11/04/2016 None Full Exam - ENT Ears/Nose/Throat oropharynx Left tonsil: erythematous 11/04/2016 None Full Exam - ENT Ears/Nose/Throat oropharynx Right tonsil: erythematous 11/04/2016 None Full Exam - ENT Face and Head palpation Overall: no sinus tenderness 11/04/2016 None Full Exam - ENT Respiratory inspection Overall: no retractions 11/04/2016 None Full Exam - ENT Respiratory inspection Overall: normal rate None Full Exam - ENT Cardiovascular auscultation of heart Overall: regular rate 11/04/2016 None Full Exam - ENT Cardiovascular auscultation of heart Overall: normal heart sounds 11/04/2016 None Full Exam - ENT Lymphatic palpation of lymph nodes Overall: shotty lymphadenopathy 11/04/2016 None Full Exam - ENT Neurologic orientation Overall: oriented to person, place a nd time 11/04/2016 None Full Exam - ENT Respiratory auscultation Diffuse: rhonchi 017 None Full Exam - Genitourinary/Female Con stitutional general appearance Overall: well nourished 10/17/2016 None Full Exam - Genitourinary/Female Con stitutional general appearance Overall: well developed 10/17/2016 None Full Exam - Genitourinary/Female Con stitutional general appearance Overall: in no acute distress 10/17/2016 None Full Exam - Genitourinary/Female Eyes conjunctiva/eyelids Overall: conjunctiva clear 10/17/2016 None Full Exam - Genitourinary/Female Eyes pupils and irises Overall: pupils equal, round, reactive to light and accomodation 10/17/2016 None Full Exam - Genitourinary/Female Ear s/Nose/Throat otoscopic exam Overall: external auditory canals clear 10/17/2016 None Full Exam - Genitourinary/Female Ear s/Nose/Throat otoscopic exam Overall: tympanic membranes clear 10/17/2016 None Full Exam - Genitourinary/Female Ear s/Nose/Throat oral cavity/pharynx/larynx Overall: oral mucosa clear 10/17/2016 None Full Exam - Genitourinary/Female Res piratory auscultation Overall: br eath sounds clear bilaterally 10/17/2016 None Full Exam - Genitourinary/Female Res piratory respiratory effort/rhythm Overall: no retractions 10/17/2016 None Full Exam - Genitourinary/Female Res piratory respiratory effort/rhythm Overall: normal rate 10/17/2016 None Full Exam - Genitourinary/Female Car diovascular auscultation of heart Overall: regular rate 10/17/2016 None Full Exam - Genitourinary/Female Car diovascular auscultation of heart Overall: normal heart sounds 10/17/2016 None Full Exam - Genitourinary/Female Car diovascular examination of vasculature Overall: no clubbing, cyanosis, edema 10/17/2016 None Full Exam - Genitourinary/Female Abdomen abdominal exam Overall: non tender, non distended 10/17/2016 None Full Exam - Genitourinary/Female Abdomen abdominal exam Overall: normal bowel sounds 10/17/2016 None Full Exam - Genitourinary/Female Abdomen abdominal exam Overall: no mass lesions 10/17/2016 None Full Exam - Genitourinary/Female Gen itourinary breast inspection & palpation Overall: breasts symmetric and without lesions 10/17/2016 None Full Exam - Genitourinary/Female Gen itourinary breast inspection & palpation Overall: breasts non-tender, no mass lesions 10/17/2016 None Full Exam - Genitourinary/Female Gen itourinary breast inspection & palpation Overall: no nipple discharge 10/17/2016 None Full Exam - Genitourinary/Female Lymphatic inspection and palpation of nodes Overall: anterior cervical chain benign 10/17/2016 None Full Exam - Genitourinary/Female Lymphatic inspection and palpation of nodes Overall: posterior cervical chain benign 10/17/2016 None Full Exam - Genitourinary/Female Mus culoskeletal head and neck Overall: h ead atraumatic 10/17/2016 None Full Exam - Genitourinary/Female Mus culoskeletal gait and station Overall: normal gait 10/17/2016 None Full Exam - Genitourinary/Female Mus culoskeletal gait and station Overall: normal station 10/17/2016 None Full Exam - Genitourinary/Female Integumen t inspection and palpation of skin Overall: no rash, lesions 10/17/2016 None Full Exam - Genitourinary/Female Neurologi c mood and affect Overall: normal mood 10/17/2016 None Full Exam - Genitourinary/Female Neurologi c mood and affect Overall: normal affect 10/17/2016 None Full Exam - Genitourinary/Female Neurologi c orientation Overall: oriented to person, place and time 10/17/2016 None Full Exam - Genitourinary/Female Psy chiatric orientation/consciousness Overall: oriented to person, place and time 10/17/2016 None Full Exam - Genitourinary/Female Con stitutional general appearance Overall: well nourished 09/06/2015 None Full Exam - Genitourinary/Female Con stitutional general appearance Overall: well developed 09/06/2015 None Full Exam - Genitourinary/Female Con stitutional general appearance Overall: in no acute distress 09/06/2015 None Full Exam - Genitourinary/Female Eyes conjunctiva/eyelids Overall: conjunctiva clear 09/06/2015 None Full Exam - Genitourinary/Female Eyes pupils and irises Overall: pupils equal, round, reactive to light and accomodation 09/06/2015 None Full Exam - Genitourinary/Female Ear s/Nose/Throat otoscopic exam Overall: external auditory canals clear 09/06/2015 None Full Exam - Genitourinary/Female Ear s/Nose/Throat otoscopic exam Overall: tympanic membranes clear 09/06/2015 None Full Exam - Genitourinary/Female Ear s/Nose/Throat oral cavity/pharynx/larynx Overall: oral mucosa clear 09/06/2015 None Full Exam - Genitourinary/Female Res piratory auscultation Overall: br eath sounds clear bilaterally 09/06/2015 None Full Exam - Genitourinary/Female Res piratory respiratory effort/rhythm Overall: no retractions 09/06/2015 None Full Exam - Genitourinary/Female Res piratory respiratory effort/rhythm Overall: normal rate 09/06/2015 None Full Exam - Genitourinary/Female Car diovascular auscultation of heart Overall: regular rate 09/06/2015 None Full Exam - Genitourinary/Female Car diovascular auscultation of heart Overall: normal heart sounds 09/06/2015 None Full Exam - Genitourinary/Female Car diovascular examination of vasculature Overall: no clubbing, cyanosis, edema 09/06/2015 None Full Exam - Genitourinary/Female Abdomen abdominal exam Overall: non tender, non distended 09/06/2015 None Full Exam - Genitourinary/Female Abdomen abdominal exam Overall: normal bowel sounds 09/06/2015 None Full Exam - Genitourinary/Female Abdomen abdominal exam Overall: no mass lesions 09/06/2015 None Full Exam - Genitourinary/Female Gen itourinary breast inspection & palpation Overall: breasts symmetric and without lesions 09/06/2015 None Full Exam - Genitourinary/Female Gen itourinary breast inspection & palpation Overall: breasts non-tender, no mass lesions 09/06/2015 None Full Exam - Genitourinary/Female Gen itourinary breast inspection & palpation Overall: no nipple discharge 09/06/2015 None Full Exam - Genitourinary/Female Gen itourinary external genitalia Overall: no discharge 09/06/2015 None Full Exam - Genitourinary/Female Gen itourinary external genitalia Overall: no lesions 09/06/2015 None Full Exam - Genitourinary/Female Gen itourinary urethral meatus Overall: normal size and location 09/06/2015 None Full Exam - Genitourinary/Female Gen itourinary bladder Palpation: non-t beau 09/06/2015 None Full Exam - Genitourinary/Female Gen itourinary bladder Palpation: no ma sses 09/06/2015 None Full Exam - Genitourinary/Female Gen itourinary vagina Overall: no disch arge 09/06/2015 None Full Exam - Genitourinary/Female Gen itourinary vagina Overall: no lesio ns 09/06/2015 None Full Exam - Genitourinary/Female Gen itourinary vagina Overall: normal t one 09/06/2015 None Full Exam - Genitourinary/Female Gen itourinary vagina Overall: normal p elvic support 09/06/2015 None Full Exam - Genitourinary/Female Gen itourinary vagina Introitus: normal appearance 09/06/2015 None Full Exam - Genitourinary/Female Gen itourinary vagina Vaginal discharge: absent 09/06/2015 None Full Exam - Genitourinary/Female Gen itourinary vagina Vagina: no lesion s present 09/06/2015 None Full Exam - Genitourinary/Female Gen itourinary vagina Vaginal tone: a n ormal exam 09/06/2015 None Full Exam - Genitourinary/Female Gen itourinary cervix Inspection: edie l os 09/06/2015 None Full Exam - Genitourinary/Female Gen itourinary cervix Cervical discharge: yellow 09/06/2015 None Full Exam - Genitourinary/Female Gen itourinary cervix Motion tenderness: present 09/06/2015 None Full Exam - Genitourinary/Female Gen itourinary uterus Overall: normal s ize 09/06/2015 None Full Exam - Genitourinary/Female Gen itourinary uterus Overall: non tend er 09/06/2015 None Full Exam - Genitourinary/Female Lymphatic inspection and palpation of nodes Overall: anterior cervical chain benign 09/06/2015 None Full Exam - Genitourinary/Female Lymphatic inspection and palpation of nodes Overall: posterior cervical chain benign 09/06/2015 None Full Exam - Genitourinary/Female Mus culoskeletal head and neck Overall: h ead atraumatic 09/06/2015 None Full Exam - Genitourinary/Female Mus culoskeletal gait and station Overall: normal gait 09/06/2015 None Full Exam - Genitourinary/Female Mus culoskeletal gait and station Overall: normal station 09/06/2015 None Full Exam - Genitourinary/Female Integumen t inspection and palpation of skin Overall: no rash, lesions 09/06/2015 None Full Exam - Genitourinary/Female Neurologi c mood and affect Overall: normal mood 09/06/2015 None Full Exam - Genitourinary/Female Neurologi c mood and affect Overall: normal affect 09/06/2015 None Full Exam - Genitourinary/Female Neurologi c orientation Overall: oriented to person, place and time 09/06/2015 None Full Exam - Genitourinary/Female Psy chiatric orientation/consciousness Overall: oriented to person, place and time 09/06/2015 None Full Exam - ENT Constitutional general appearance Overall: well nourished 11/01/2014 None Full Exam - ENT Constitutional general appearance Overall: well developed 11/01/2014 None Full Exam - ENT Constitutional general appearance Overall: in no acute distress 11/01/2014 None Full Exam - ENT Neurologic orientation Overall: oriented to person, place a nd time 11/01/2014 None Full Exam - ENT Lymphatic palpation of lymph nodes Overall: shotty lymphadenopathy 11/01/2014 None Full Exam - ENT Cardiovascular auscultation of heart Overall: normal heart sounds 11/01/2014 None Full Exam - ENT Cardiovascular auscultation of heart Overall: regular rate 11/01/2014 None Full Exam - ENT Respiratory inspection Overall: no retractions 11/01/2014 None Full Exam - ENT Respiratory inspection Overall: normal rate None Full Exam - ENT Respiratory auscultation Overall: breath sounds clear bilater ally 11/01/2014 None Full Exam - ENT Face and Head palpation Overall: no sinus tenderness 11/01/2014 None Full Exam - ENT Ears/Nose/Throat otoscopic exam Overall: external auditory canals normal 11/01/2014 None Full Exam - ENT Ears/Nose/Throat otoscopic exam Left tympanic membrane: air-fluid le melanie 11/01/2014 None Full Exam - ENT Ears/Nose/Throat otoscopic exam Right tympanic membrane: air-fluid level 11/01/2014 None Full Exam - ENT Ears/Nose/Throat oropharynx Left tonsil: erythematous 11/01/2014 None Full Exam - ENT Ears/Nose/Throat oropharynx Left tonsil: exudate 11/01/2014 None Full Exam - ENT Ears/Nose/Throat oropharynx Right tonsil: exudate 11/01/2014 None Full Exam - ENT Ears/Nose/Throat oropharynx Right tonsil: erythematous 11/01/2014 None Full Exam - General 1994 Constitutional general appearance Overall: well nourished 07/26/2014 None Full Exam - General 1994 Constitutional general appearance Overall: well developed 07/26/2014 None Full Exam - General 1994 Constitutional general appearance Overall: in no acute distress 07/26/2014 None Full Exam - General 1994 Psychiatric orientation/consciousness Overall: oriented to person, place and time 07/26/2014 None Full Exam - General 1994 Integument inspection of skin Location: back 07/26/2014 Consent signed and on darion rt. The patient's moles were cleansed with alcohol and infiltrated with lidocaine with epinephrine. The lesions were cleansed with iodine, and draped in sterile fashion. The lesions were then removed with sharp excision. An 11 blade was utilized to make an elipse around each lesion and then utilized to remove the base of the lesion. The surgical sites were closed with 4-0 vicryl with __4__# of sutures each Dressings placed on lesions prior to pt discharge.Biopsy sites - Elipse - as follows:specimen A: left shoulder specimen B: right shoulder/scapulaspecimen C: left upper shoulder/neckspecimen D: middle upper backspecimen E: low back. Full Exam - Genitourinary/Female Con stitutional general appearance Overall: well nourished 06/15/2014 None Full Exam - Genitourinary/Female Con stitutional general appearance Overall: well developed 06/15/2014 None Full Exam - Genitourinary/Female Con stitutional general appearance Overall: in no acute distress 06/15/2014 None Full Exam - Genitourinary/Female Eyes conjunctiva/eyelids Overall: conjunctiva clear 06/15/2014 None Full Exam - Genitourinary/Female Eyes pupils and irises Overall: pupils equal, round, reactive to light and accomodation 06/15/2014 None Full Exam - Genitourinary/Female Ear s/Nose/Throat otoscopic exam Overall: external auditory canals clear 06/15/2014 None Full Exam - Genitourinary/Female Ear s/Nose/Throat otoscopic exam Overall: tympanic membranes clear 06/15/2014 None Full Exam - Genitourinary/Female Ear s/Nose/Throat oral cavity/pharynx/larynx Overall: oral mucosa clear 06/15/2014 None Full Exam - Genitourinary/Female Res piratory auscultation Overall: br eath sounds clear bilaterally 06/15/2014 None Full Exam - Genitourinary/Female Res piratory respiratory effort/rhythm Overall: no retractions 06/15/2014 None Full Exam - Genitourinary/Female Res piratory respiratory effort/rhythm Overall: normal rate 06/15/2014 None Full Exam - Genitourinary/Female Car diovascular auscultation of heart Overall: regular rate 06/15/2014 None Full Exam - Genitourinary/Female Car diovascular auscultation of heart Overall: normal heart sounds 06/15/2014 None Full Exam - Genitourinary/Female Car diovascular examination of vasculature Overall: no clubbing, cyanosis, edema 06/15/2014 None Full Exam - Genitourinary/Female Abdomen abdominal exam Overall: non tender, non distended 06/15/2014 None Full Exam - Genitourinary/Female Abdomen abdominal exam Overall: normal bowel sounds 06/15/2014 None Full Exam - Genitourinary/Female Abdomen abdominal exam Overall: no mass lesions 06/15/2014 None Full Exam - Genitourinary/Female Gen itourinary breast inspection & palpation Overall: breasts symmetric and without lesions 06/15/2014 None Full Exam - Genitourinary/Female Gen itourinary breast inspection & palpation Overall: breasts non-tender, no mass lesions 06/15/2014 None Full Exam - Genitourinary/Female Gen itourinary breast inspection & palpation Overall: no nipple discharge 06/15/2014 None Full Exam - Genitourinary/Female Gen itourinary external genitalia Overall: no discharge 06/15/2014 None Full Exam - Genitourinary/Female Gen itourinary external genitalia Overall: no lesions 06/15/2014 None Full Exam - Genitourinary/Female Gen itourinary urethral meatus Overall: normal size and location 06/15/2014 None Full Exam - Genitourinary/Female Gen itourinary bladder Palpation: non-t beau 06/15/2014 None Full Exam - Genitourinary/Female Gen itourinary bladder Palpation: no ma sses 06/15/2014 None Full Exam - Genitourinary/Female Gen itourinary vagina Overall: no disch arge 06/15/2014 None Full Exam - Genitourinary/Female Gen itourinary vagina Overall: no lesio ns 06/15/2014 None Full Exam - Genitourinary/Female Gen itourinary vagina Overall: normal t one 06/15/2014 None Full Exam - Genitourinary/Female Gen itourinary vagina Overall: normal p elvic support 06/15/2014 None Full Exam - Genitourinary/Female Gen itourinary vagina Introitus: normal appearance 06/15/2014 None Full Exam - Genitourinary/Female Gen itourinary vagina Vaginal discharge: absent 06/15/2014 None Full Exam - Genitourinary/Female Gen itourinary vagina Vagina: no lesion s present 06/15/2014 None Full Exam - Genitourinary/Female Gen itourinary vagina Vaginal tone: a n ormal exam 06/15/2014 None Full Exam - Genitourinary/Female Gen itourinary cervix Inspection: edie l os 06/15/2014 None Full Exam - Genitourinary/Female Gen itourinary cervix Cervical discharge: yellow 06/15/2014 None Full Exam - Genitourinary/Female Gen itourinary cervix Motion tenderness: present 06/15/2014 None Full Exam - Genitourinary/Female Gen itourinary uterus Overall: normal s ize 06/15/2014 None Full Exam - Genitourinary/Female Gen itourinary uterus Overall: non tend er 06/15/2014 None Full Exam - Genitourinary/Female Lymphatic inspection and palpation of nodes Overall: anterior cervical chain benign 06/15/2014 None Full Exam - Genitourinary/Female Lymphatic inspection and palpation of nodes Overall: posterior cervical chain benign 06/15/2014 None Full Exam - Genitourinary/Female Mus culoskeletal head and neck Overall: h ead atraumatic 06/15/2014 None Full Exam - Genitourinary/Female Mus culoskeletal gait and station Overall: normal gait 06/15/2014 None Full Exam - Genitourinary/Female Mus culoskeletal gait and station Overall: normal station 06/15/2014 None Full Exam - Genitourinary/Female Neurologi c mood and affect Overall: normal mood 06/15/2014 None Full Exam - Genitourinary/Female Neurologi c mood and affect Overall: normal affect 06/15/2014 None Full Exam - Genitourinary/Female Neurologi c orientation Overall: oriented to person, place and time 06/15/2014 None Full Exam - Genitourinary/Female Psy chiatric orientation/consciousness Overall: oriented to person, place and time 06/15/2014 None Full Exam - Genitourinary/Female Integumen t inspection and palpation of skin Location: face 06/15/2014 - right ear - darkening lesion on lobe of ear, and on left upper lip red raised lesion, does not appear to be simply a hemangioma. Full Exam - Genitourinary/Female Integumen t inspection and palpation of skin Location: back 06/15/2014 several new dark lesions on upper back, shoulder, and lower back in the middle need biopsied. Full Exam - Genitourinary/Female Con stitutional general appearance Overall: well nourished 07/15/2013 None Full Exam - Genitourinary/Female Con stitutional general appearance Overall: well developed 07/15/2013 None Full Exam - Genitourinary/Female Con stitutional general appearance Overall: in no acute distress 07/15/2013 None Full Exam - Genitourinary/Female Eyes conjunctiva/eyelids Overall: conjunctiva clear 07/15/2013 None Full Exam - Genitourinary/Female Eyes pupils and irises Overall: pupils equal, round, reactive to light and accomodation 07/15/2013 None Full Exam - Genitourinary/Female Ear s/Nose/Throat otoscopic exam Overall: external auditory canals clear 07/15/2013 None Full Exam - Genitourinary/Female Ear s/Nose/Throat otoscopic exam Overall: tympanic membranes clear 07/15/2013 None Full Exam - Genitourinary/Female Ear s/Nose/Throat oral cavity/pharynx/larynx Overall: oral mucosa clear 07/15/2013 None Full Exam - Genitourinary/Female Res piratory auscultation Overall: br eath sounds clear bilaterally 07/15/2013 None Full Exam - Genitourinary/Female Res piratory respiratory effort/rhythm Overall: no retractions 07/15/2013 None Full Exam - Genitourinary/Female Res piratory respiratory effort/rhythm Overall: normal rate 07/15/2013 None Full Exam - Genitourinary/Female Car diovascular auscultation of heart Overall: regular rate 07/15/2013 None Full Exam - Genitourinary/Female Car diovascular auscultation of heart Overall: normal heart sounds 07/15/2013 None Full Exam - Genitourinary/Female Car diovascular examination of vasculature Overall: no clubbing, cyanosis, edema 07/15/2013 None Full Exam - Genitourinary/Female Abdomen abdominal exam Overall: non tender, non distended 07/15/2013 None Full Exam - Genitourinary/Female Abdomen abdominal exam Overall: normal bowel sounds 07/15/2013 None Full Exam - Genitourinary/Female Abdomen abdominal exam Overall: no mass lesions 07/15/2013 None Full Exam - Genitourinary/Female Gen itourinary breast inspection & palpation Overall: breasts symmetric and without lesions 07/15/2013 None Full Exam - Genitourinary/Female Gen itourinary breast inspection & palpation Overall: breasts non-tender, no mass lesions 07/15/2013 None Full Exam - Genitourinary/Female Gen itourinary breast inspection & palpation Overall: no nipple discharge 07/15/2013 None Full Exam - Genitourinary/Female Gen itourinary external genitalia Overall: no discharge 07/15/2013 None Full Exam - Genitourinary/Female Gen itourinary external genitalia Overall: no lesions 07/15/2013 None Full Exam - Genitourinary/Female Gen itourinary urethral meatus Overall: normal size and location 07/15/2013 None Full Exam - Genitourinary/Female Gen itourinary bladder Palpation: non-t beau 07/15/2013 None Full Exam - Genitourinary/Female Gen itourinary bladder Palpation: no ma sses 07/15/2013 None Full Exam - Genitourinary/Female Gen itourinary vagina Overall: no disch arge 07/15/2013 None Full Exam - Genitourinary/Female Gen itourinary vagina Overall: no lesio ns 07/15/2013 None Full Exam - Genitourinary/Female Gen itourinary vagina Overall: normal t one 07/15/2013 None Full Exam - Genitourinary/Female Gen itourinary vagina Overall: normal p elvic support 07/15/2013 None Full Exam - Genitourinary/Female Gen itourinary vagina Introitus: normal appearance 07/15/2013 None Full Exam - Genitourinary/Female Gen itourinary vagina Vaginal discharge: absent 07/15/2013 None Full Exam - Genitourinary/Female Gen itourinary vagina Vagina: no lesion s present 07/15/2013 None Full Exam - Genitourinary/Female Gen itourinary vagina Vaginal tone: a n ormal exam 07/15/2013 None Full Exam - Genitourinary/Female Gen itourinary cervix Inspection: edie l os 07/15/2013 None Full Exam - Genitourinary/Female Gen itourinary cervix Cervical discharge: yellow 07/15/2013 None Full Exam - Genitourinary/Female Gen itourinary cervix Motion tenderness: present 07/15/2013 None Full Exam - Genitourinary/Female Gen itourinary uterus Overall: normal s ize 07/15/2013 None Full Exam - Genitourinary/Female Gen itourinary uterus Overall: non tend er 07/15/2013 None Full Exam - Genitourinary/Female Lymphatic inspection and palpation of nodes Overall: anterior cervical chain benign 07/15/2013 None Full Exam - Genitourinary/Female Lymphatic inspection and palpation of nodes Overall: posterior cervical chain benign 07/15/2013 None Full Exam - Genitourinary/Female Mus culoskeletal head and neck Overall: h ead atraumatic 07/15/2013 None Full Exam - Genitourinary/Female Mus culoskeletal gait and station Overall: normal gait 07/15/2013 None Full Exam - Genitourinary/Female Mus culoskeletal gait and station Overall: normal station 07/15/2013 None Full Exam - Genitourinary/Female Integumen t inspection and palpation of skin Overall: no rash, lesions 07/15/2013 None Full Exam - Genitourinary/Female Neurologi c mood and affect Overall: normal mood 07/15/2013 None Full Exam - Genitourinary/Female Neurologi c mood and affect Overall: normal affect 07/15/2013 None Full Exam - Genitourinary/Female Neurologi c orientation Overall: oriented to person, place and time 07/15/2013 None Full Exam - Genitourinary/Female Psy chiatric orientation/consciousness Overall: oriented to person, place and time 07/15/2013 None Full Exam - Genitourinary/Female Con stitutional general appearance Overall: well nourished 03/09/2012 None Full Exam - Genitourinary/Female Con stitutional general appearance Overall: well developed 03/09/2012 None Full Exam - Genitourinary/Female Con stitutional general appearance Overall: in no acute distress 03/09/2012 None Full Exam - Genitourinary/Female Eyes conjunctiva/eyelids Overall: conjunctiva clear 03/09/2012 None Full Exam - Genitourinary/Female Eyes pupils and irises Overall: pupils equal, round, reactive to light and accomodation 03/09/2012 None Full Exam - Genitourinary/Female Ear s/Nose/Throat otoscopic exam Overall: external auditory canals clear 03/09/2012 None Full Exam - Genitourinary/Female Ear s/Nose/Throat otoscopic exam Overall: tympanic membranes clear 03/09/2012 None Full Exam - Genitourinary/Female Ear s/Nose/Throat oral cavity/pharynx/larynx Overall: oral mucosa clear 03/09/2012 None Full Exam - Genitourinary/Female Res piratory auscultation Overall: br eath sounds clear bilaterally 03/09/2012 None Full Exam - Genitourinary/Female Res piratory respiratory effort/rhythm Overall: no retractions 03/09/2012 None Full Exam - Genitourinary/Female Res piratory respiratory effort/rhythm Overall: normal rate 03/09/2012 None Full Exam - Genitourinary/Female Car diovascular auscultation of heart Overall: regular rate 03/09/2012 None Full Exam - Genitourinary/Female Car diovascular auscultation of heart Overall: normal heart sounds 03/09/2012 None Full Exam - Genitourinary/Female Car diovascular examination of vasculature Overall: no clubbing, cyanosis, edema 03/09/2012 None Full Exam - Genitourinary/Female Abdomen abdominal exam Overall: non tender, non distended 03/09/2012 None Full Exam - Genitourinary/Female Abdomen abdominal exam Overall: normal bowel sounds 03/09/2012 None Full Exam - Genitourinary/Female Abdomen abdominal exam Overall: no mass lesions 03/09/2012 None Full Exam - Genitourinary/Female Gen itourinary breast inspection & palpation Overall: breasts symmetric and without lesions 03/09/2012 None Full Exam - Genitourinary/Female Gen itourinary breast inspection & palpation Overall: breasts non-tender, no mass lesions 03/09/2012 None Full Exam - Genitourinary/Female Gen itourinary breast inspection & palpation Overall: no nipple discharge 03/09/2012 None Full Exam - Genitourinary/Female Gen itourinary external genitalia Overall: no discharge 03/09/2012 None Full Exam - Genitourinary/Female Gen itourinary external genitalia Overall: no lesions 03/09/2012 None Full Exam - Genitourinary/Female Gen itourinary urethral meatus Overall: normal size and location 03/09/2012 None Full Exam - Genitourinary/Female Gen itourinary bladder Palpation: non-t beau 03/09/2012 None Full Exam - Genitourinary/Female Gen itourinary bladder Palpation: no ma sses 03/09/2012 None Full Exam - Genitourinary/Female Gen itourinary vagina Overall: no disch arge 03/09/2012 None Full Exam - Genitourinary/Female Gen itourinary vagina Overall: no lesio ns 03/09/2012 None Full Exam - Genitourinary/Female Gen itourinary vagina Overall: normal t one 03/09/2012 None Full Exam - Genitourinary/Female Gen itourinary vagina Overall: normal p elvic support 03/09/2012 None Full Exam - Genitourinary/Female Gen itourinary vagina Introitus: normal appearance 03/09/2012 None Full Exam - Genitourinary/Female Gen itourinary vagina Vaginal discharge: absent 03/09/2012 None Full Exam - Genitourinary/Female Gen itourinary vagina Vagina: no lesion s present 03/09/2012 None Full Exam - Genitourinary/Female Gen itourinary vagina Vaginal tone: a n ormal exam 03/09/2012 None Full Exam - Genitourinary/Female Gen itourinary cervix Inspection: edie l os 03/09/2012 None Full Exam - Genitourinary/Female Gen itourinary cervix Cervical discharge: yellow 03/09/2012 None Full Exam - Genitourinary/Female Gen itourinary cervix Motion tenderness: present 03/09/2012 None Full Exam - Genitourinary/Female Gen itourinary uterus Overall: normal s ize 03/09/2012 None Full Exam - Genitourinary/Female Gen itourinary uterus Overall: non tend er 03/09/2012 None Full Exam - Genitourinary/Female Lymphatic inspection and palpation of nodes Overall: anterior cervical chain benign 03/09/2012 None Full Exam - Genitourinary/Female Lymphatic inspection and palpation of nodes Overall: posterior cervical chain benign 03/09/2012 None Full Exam - Genitourinary/Female Mus culoskeletal head and neck Overall: h ead atraumatic 03/09/2012 None Full Exam - Genitourinary/Female Mus culoskeletal gait and station Overall: normal gait 03/09/2012 None Full Exam - Genitourinary/Female Mus culoskeletal gait and station Overall: normal station 03/09/2012 None Full Exam - Genitourinary/Female Integumen t inspection and palpation of skin Overall: no rash, lesions 03/09/2012 None Full Exam - Genitourinary/Female Neurologi c mood and affect Overall: normal mood 03/09/2012 None Full Exam - Genitourinary/Female Neurologi c mood and affect Overall: normal affect 03/09/2012 None Full Exam - Genitourinary/Female Neurologi c orientation Overall: oriented to person, place and time 03/09/2012 None Full Exam - Genitourinary/Female Psy chiatric orientation/consciousness Overall: oriented to person, place and time 03/09/2012 None Procedures Procedure Codes Date URINALYSIS NONAUTO W /O SCOPE CPT-4: 93844 04/16/2018 URINALYSIS NONAUTO W /O SCOPE CPT-4: 63117 04/13/2018 TRIAMCINOLONE ACET I [place] NOS CPT-4: J3301 11/04/2016 CHLM PROBE (CHYLMD T CODEY DNA AMP PROBE) CPT-4: 10586 09/06/2015 THER/PROPH/DIAG INJ SC/IM CPT-4: 31518 06/14/2015 TRIAMCINOLONE ACET I [place] NOS CPT-4: J3301 06/14/2015 C RAP A SC (STREP A ASSAY W/OPTIC) CPT-4: 35797 11/01/2014 BIOPSY SKIN LESION CPT- 4: 26940 07/26/2014 BIOPSY SKIN ADD-ON CPT- 4: 41038 07/26/2014 PREV VISIT EST AGE 4 0-64 CPT-4: 21803 03/09/2012 Vital Signs Date Vital 11/23/2018 Blood Pressure 1: 120/74 Code: 8480-6 BMI: 22.7 Code: 97441-3 Heart Rate 1: 82 bpm Height: 5'8" SpO2: 98% Temperature: 37.7 (C ) / 99.9 (F) Weight: 149 lbs 11/09/2018 Blood Pressure 1: 130/88 Code: 8480-6 BMI: 22.4 Code: 10891-8 Heart Rate 1: 72 bpm Height: 5'8" SpO2: 98% Weight: 147 lbs 07/23/2018 Blood Pressure 1: 138/82 Code: 8480-6 BMI: 22.8 Code: 41047-9 Heart Rate 1: 82 bpm Height: 5'8" SpO2: 99% Weight: 150 lbs 04/16/2018 Blood Pressure 1: 140/84 Code: 8480-6 BMI: 22.5 Code: 95373-6 Heart Rate 1: 71 bpm Height: 5'8" SpO2: 98% Weight: 148 lbs 11/07/2017 Blood Pressure 1: 132/74 Code: 8480-6 BMI: 23.0 Code: 14875-5 Heart Rate 1: 69 bpm Height: 5'8" SpO2: 99% Weight: 151 lbs 11/04/2016 Heart Rate 1: 99 bpm Height: 5'8" SpO2: 98% Temperature: 37.1 (C) / 98.7 (F) 10/17/2016 Blood Pressure 1: 132/76 Code: 8480-6 BMI: 23.1 Code: 30579-7 Heart Rate 1: 102 bpm Height: 5'8" SpO2: 99% Weight: 152 lbs 09/06/2015 Blood Pressure 1: 138/84 Code: 8480-6 BMI: 22.4 Code: 87667-3 Heart Rate 1: 83 bpm Height: 5'8" SpO2: 96% Weight: 147 lbs 11/01/2014 Blood Pressure 1: 122/84 Code: 8480-6 BMI: 23.0 Code: 59896-4 Heart Rate 1: 92 bpm Height: 5'8" Weight: 151 lbs 07/26/2014 Blood Pressure 1: 118/72 Code: 8480-6 BMI: 22.5 Code: 02156-4 Heart Rate 1: 78 bpm Height: 5'8" Weight: 148 lbs 06/15/2014 Blood Pressure 1: 140/78 Code: 8480-6 BMI: 22.2 Code: 33891-8 Heart Rate 1: 80 bpm Height: 5'8" Weight: 146 lbs 07/15/2013 Blood Pressure 1: 128/76 Code: 8480-6 BMI: 21.9 Code: 02387-2 Heart Rate 1: 80 bpm Height: 5'8" Weight: 144 lbs 03/09/2012 Blood Pressure 1: 122/88 Code: 8480-6 BMI: 21.1 Code: 83769-6 Heart Rate 1: 73 bpm Height: 5'8" SpO2: 98% Weight: 138 lbs 8 oz Functional Status No Functional Status data History of Present Illness Symptom Name Status Resu lt Effective Date Notes Location frontal sinuses 11/23/2018 None Quality constant 11/23/2018 None Quality fullness 11/23/2018 None Onset and Resolution s udden in onset 11/23/2018 None Onset of Symptom 3 day s ago 11/23/2018 None Location diffusely 11/23/2018 None Quality aching 11/23/2018 None Quality constant 11/23/2018 None Onset and Resolution s udden in onset 11/23/2018 None Quality constant 11/23/2018 None Onset and Resolution s udden in onset 11/23/2018 None Onset of Symptom 1 day s ago 11/23/2018 None Menstrual History regu lar menses 11/09/2018 None Menstrual History heav y flow 11/09/2018 None Control none 11/09/2018 None Control partner S/P vasectomy 11/09/2018 None Nutrition and Exercise normal weight 11/09/2018 None Obstetrical History 3 total pregnancies 11/09/2018 None Obstetrical History 2 full term 11/09/2018 None Pap Smear last normal performed on 09-06-2015 11/09/2018 None Menstrual History last menstrual period 10-31-2018 11/09/2018 None Nutrition and Exercise excessive exercise 11/09/2018 None flank pain Location on t he right 07/23/2018 None flank pain Quality acute 07/23/2018 None flank pain Onset and Resolution sudden in onset 07/23/2018 None flank pain Onset of Symptom 5 days ago 07/23/2018 None flank pain Triggers no k nown associated factors 07/23/2018 None flank pain Pertinent Findings bladder pain 07/23/2018 None hyperlipidemia Onset of Symptom during adulthood 07/23/2018 None flank pain Location on t he right 04/16/2018 None flank pain Quality acute 04/16/2018 None flank pain Onset and Resolution sudden in onset 04/16/2018 None flank pain Onset of Symptom 5 days ago 04/16/2018 None flank pain Triggers no k nown associated factors 04/16/2018 None flank pain Pertinent Findings bladder pain 04/16/2018 None well woman exam (40-65 years) Pap Smear last normal performed on 09-06-15 11/07/2017 None well woman exam (40-65 years) Menstr ual History last menstrual period 10-14-17 11/07/2017 None well woman exam (40-65 years) Menstr ual History regular menses 11/07/2017 None well woman exam (40-65 years) Menstr ual History heavy flow 11/07/2017 No ne well woman exam (40-65 years) Contro l none 11/07/2017 None well woman exam (40-65 years) Contro l partner S/P vasectomy 11/07/2017 None well woman exam (40-65 years) Nutrit ion and Exercise normal weight 11/07/2017 None well woman exam (40-65 years) Obstet rical History 3 total pregnancies 11/07/2017 None well woman exam (40-65 years) Obstet rical History 2 full term 11/07/2017 None chest tightness Location diffusely 11/04/2016 None chest tightness Quality acute 11/04/2016 None chest tightness Onset and Resolution sudden in onset 11/04/2016 None chest tightness Pertinent Findings cough 11/04/2016 None chest tightness Pertinent Findings dyspnea 11/04/2016 None chest tightness Pertinent Findings Denies fever 11/04/2016 None chest tightness Pertinent Findings Denies palpitations 11/04/2016 None chest tightness Alleviating Factors rest 11/04/2016 None chest tightness Triggers no known associated factors 11/04/2016 coworkers were sick at a meeting one week ago cough Location in the th roat 11/04/2016 None cough Quality acute 11/04/2016 None cough Onset and Resolution sudden in onset 11/04/2016 None cough Quality dry 11/04/2016 None cough Quality hacking 11/04/2016 None cough Quality intermitte nt 11/04/2016 None cough Onset of Symptom 1 weeks ago 11/04/2016 None cough Pertinent Findings chest discomfort 11/04/2016 None cough Pertinent Findings dyspnea 11/04/2016 None cough Pertinent Findings Denies fever 11/04/2016 None cough Pertinent Findings hoarseness 11/04/2016 None cough Pertinent Findings ill contacts 11/04/2016 coworkers cough Pertinent Findings Denies muscle aches 11/04/2016 None cough Pertinent Findings nasal congestion 11/04/2016 None cough Pertinent Findings Denies tachypnea 11/04/2016 None cough Pertinent Findings sputum production 11/04/2016 None cough Exacerbating Factors exercise 11/04/2016 None cough Exacerbating Factors stress 11/04/2016 None cough Triggers ill conta cts 11/04/2016 None sore throat Location dif fusely 11/04/2016 None sore throat Quality scra tchy 11/04/2016 None sore throat Quality wors ening 11/04/2016 None sore throat Onset and Resolution sudden in onset 11/04/2016 None sore throat Pertinent Findings cough 11/04/2016 None sore throat Pertinent Findings decreased energy level 11/04/2016 None sore throat Pertinent Findings Denies fever 11/04/2016 None sore throat Pertinent Findings hoarseness 11/04/2016 None sore throat Pertinent Findings nasal congestion 11/04/2016 None sore throat Pertinent Findings Denies unable to swallow 11/04/2016 None sore throat Exacerbating Factors exertion 11/04/2016 None sore throat Alleviating Factors rest 11/04/2016 None sore throat Triggers no known associated factors 11/04/2016 None well woman exam (40-65 years) Pap Smear last normal performed on 10/17/2016 None well woman exam (40-65 years) Pap Smear normal results 10/17/2016 None well woman exam (40-65 years) Menstr ual History last menstrual period 10/08/201510/17 None well woman exam (40-65 years) Menstr ual History heavy flow 10/17/2016 No ne well woman exam (40-65 years) Menstr ual History period length of 7 days 10/17/2016 None well woman exam (40-65 years) Contro l none 10/17/2016 None well woman exam (40-65 years) Nutrit ion and Exercise normal weight 10/17/2016 None well woman exam (40-65 years) Nutrit ion and Exercise regular diet 10/17/2016 None well woman exam (40-65 years) Obstet rical History 3 total pregnancies 10/17/2016 None well woman exam (40-65 years) Obstet rical History 2 full term 10/17/2016 None well woman exam (40-65 years) Health Guidance baseline mammogram 10/17/2016 None well woman exam (40-65 years) Menstr ual History heavy flow 09/06/2015 No ne well woman exam (40-65 years) Menstr ual History dysmenorrhea 09/06/2015 None well woman exam (40-65 years) Contro l none 09/06/2015 None well woman exam (40-65 years) Nutrit ion and Exercise balanced nutrition 09/06/2015 None well woman exam (40-65 years) Menstr ual History irregular menses 09/06/2015 None well woman exam (40-65 years) Lifestyle sporadic seatbelt use 09/06/2015 None well woman exam (40-65 years) Lifestyle family supportive of relationship 09/06/2015 None well woman exam (40-65 years) Lifestyle satisfactory work experience 09/06/2015 None well woman exam (40-65 years) Lifestyle normal sleep patterns 09/06/2015 None well woman exam (40-65 years) Sexual Activity experiences sexual satisfaction 09/06/2015 None well woman exam (40-65 years) Sexual Activity is monogamous 09/06/2015 None well woman exam (40-65 years) Health Guidance self-breast exam 09/06/2015 None well woman exam (40-65 years) Menstr ual History regular menses 09/06/2015 28 days well woman exam (40-65 years) Menstr ual History period length of 7-9 days 09/06/2015 None well woman exam (40-65 years) Cardio vascular Risk Factors lifestyle 09/06/2015 Non e sore throat Location on both sides 11/01/2014 None sore throat Onset of Symptom _ days ago 11/01/2014 yesterday sore throat Pertinent Findings cough 11/01/2014 None sore throat Pertinent Findings Denies fever 11/01/2014 None earache Location left ear 11/01/2014 today earache Location right e ar 11/01/2014 yesterday earache Onset of Symptom _ days ago 11/01/2014 None sore throat Quality acute 11/01/2014 None sore throat Onset and Resolution worse during the day 11/01/2014 None sore throat Limitation on Activities does not limit oral intake 11/01/2014 None sore throat Frequency of Episodes increasing 11/01/2014 None sore throat Significant Medical Conditions allergic rhinitis 11/01/2014 None sore throat Triggers swa llowing 11/01/2014 None sore throat Pertinent Findings Denies decreased energy level 11/01/2014 None sore throat Pertinent Findings ill contacts 11/01/2014 None well woman exam (40-65 years) Pap Smear last normal performed on 07-15-2013 06/15/2014 None well woman exam (40-65 years) Menstr ual History last menstrual period 05-30-201407/2014 7-9 days well woman exam (40-65 years) Menstr ual History regular menses 06/15/2014 None well woman exam (40-65 years) Menstr ual History heavy flow 06/15/2014 No ne well woman exam (40-65 years) Contro l none 06/15/2014 None well woman exam (40-65 years) Nutrit ion and Exercise normal weight 06/15/2014 None well woman exam (40-65 years) Nutrit ion and Exercise moderate exercise 06/15/2014 None well woman exam (40-65 years) Obstet rical History 3 total pregnancies 06/15/2014 None well woman exam (40-65 years) Obstet rical History 2 living children 06/15/2014 None well woman exam (40-65 years) Health Guidance baseline mammogram 06/15/2014 None well woman exam (40-65 years) Health Guidance regular exercise 06/15/2014 None well woman exam (40-65 years) Health Guidance safety belt use 06/15/2014 None well woman exam (40-65 years) Pap Smear last normal performed in March 2012 07/15/2013 None well woman exam (40-65 years) Menstr ual History regular menses 07/15/2013 28 days well woman exam (40-65 years) Menstr ual History period length of 7-9 days 07/15/2013 None well woman exam (40-65 years) Menstr ual History heavy flow 07/15/2013 No ne well woman exam (40-65 years) Menstr ual History dysmenorrhea 07/15/2013 None well woman exam (40-65 years) Contro l none 07/15/2013 None well woman exam (40-65 years) Sexual Activity is monogamous 07/15/2013 None well woman exam (40-65 years) Nutrit ion and Exercise balanced nutrition 07/15/2013 None well woman exam (40-65 years) Cardio vascular Risk Factors lifestyle 07/15/2013 Non e well woman exam (40-65 years) Health Guidance self-breast exam 07/15/2013 None well woman exam (40-65 years) Menstr ual History heavy flow 03/09/2012 -v annette heavy, well woman exam (40-65 years) Menstr ual History regular menses 03/09/2012 heavy periods and periods last 7-8 days well woman exam (40-65 years) Nutrit ion and Exercise normal weight 03/09/2012 None well woman exam (40-65 years) Nutrit ion and Exercise overweight 03/09/2012 No ne well woman exam (40-65 years) Nutrit ion and Exercise regular diet 03/09/2012 None well woman exam (40-65 years) Obstet rical History _ total pregnancies 03/09/2012 None well woman exam (40-65 years) Pap Smear last normal performed on __-__-__ 03/09/201203/2011 well woman exam (40-65 years) Sexual Activity complains of dyspareunia 03/09/2012 None well woman exam (40-65 years) Sexual Activity is not sexually active 03/09/2012 None well woman exam (40-65 years) Lifestyle regular seatbelt use 03/09/2012 None well woman exam (40-65 years) 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 03/09/2012 None well woman exam (40-65 years) Cardio vascular Risk Factors diabetes mellitus 03/09/2012 None well woman exam (40-65 years) Cardio vascular Risk Factors dyslipidemia 03/09/2012 None well woman exam (40-65 years) Cardio vascular Risk Factors family history of cardiovascular disease 03/09/2012 None well woman exam (40-65 years) Cardio vascular Risk Factors hypertension 03/09/2012 None well woman exam (40-65 years) Cardio vascular Risk Factors lifestyle 03/09/2012 Non e well woman exam (40-65 years) Cardio vascular Risk Factors obesity 03/09/2012 None well woman exam (40-65 years) Contro l partner S/P vasectomy 03/09/2012 None well woman exam (40-65 years) Health Guidance baseline mammogram 03/09/2012 None well woman exam (40-65 years) Health Guidance colonoscopy/sigmoidoscopy 03/09/2012 None well woman exam (40-65 years) Immunization s influenza vaccine (annually over 50 y.o.) 03/09/2012 None well woman exam (40-65 years) Lifestyle no history of physical abuse 03/09/2012 None well woman exam (40-65 years) Nutrit ion and Exercise ADA diet 03/09/2012 Non e well woman exam (40-65 years) Nutrit ion and Exercise balanced nutrition 03/09/2012 None well woman exam (40-65 years) Nutrit ion and Exercise inadequate nutrition 03/09/2012 None well woman exam (40-65 years) Nutrit ion and Exercise minimal exercise 03/09/2012 None well woman exam (40-65 years) Nutrit ion and Exercise no exercise 03/09/2012 N one Advance Directives No Advance Directive data Encounters Encounter Performer Loca tion Codes Date 25815 EST. PATIENT, LEVEL III Diagnosis: Dysuria[ICD10: R30.0] Diagnosis: Acute laryngopharyngitis[ICD10: J06.0] Diagnosis: Other allergic rhinitis[ICD10: J30.89] [facility] CPT-4: 16585 11/23/2018 ([id number]) PREV VISIT E ST AGE 40-64 Diagnosis: Encounter for gynecological examination (general) (routine) without abnormal findings[ICD10: Z01.419] [facility] CPT-4: 73038 11/09/2018 43763 EST. PATIENT, LEVEL IV Diagnosis: Dysuria[ICD10: R30.0] Diagnosis: Muscle spasm of back[ICD10: M62.830] Diagnosis: Mixed hyperlipidemia[ICD10: E78.2] [facility] CPT-4: 04689 07/23/2018 ([id number]) 88552 EST. P ATIENT, LEVEL III Diagnosis: Dysuria[ICD10: R30.0] Enedelia [facility] CPT-4: 17585 04/16/2018 ([id number]) PREV VISIT E AGE 40-64 Diagnosis: Encounter for general adult medical examination with abnormal findings[ICD10: Z00.01] Diagnosis: Other ulcerative colitis without complications[ICD10: K51.80] Joan Green MD, [facility] CPT-4: 90426 11/07/2017 ([id number]) 99672 EST. P ATIENT, LEVEL III Diagnosis: Cough[ICD10: R05] Diagnosis: Acute bronchitis, unspecified[ICD10: J20.9] [facility] CPT-4: 73800 11/04/2016 ([id number]) PREV VISIT E AGE 40-64 Diagnosis: Encounter for gynecological examination (general) (routine) without abnormal findings[ICD10: Z01.419] Enedelia Green MD, [facility] CPT-4: 85210 10/17/2016 ([id number]) 16608 EST. P ATIENT, LEVEL III Diagnosis: ACUTE PHARYNGITIS[ICD9: 462] [facility]ed[facility] CPT- 4: 51439 11/01/2014 ([id number]) PREV VISIT E AGE 40-64 Diagnosis: ROUTINE GYNE EXAM[ICD9: V72.31] Diagnosis: Skin lesion[ICD9: 709.9] Do Green MD, [facility] CPT-4: 02034 06/15/2014 ([id number]) PREV VISIT E AGE 40-64 Diagnosis: ROUTINE GYNE EXAM[ICD9: V72.31] [facility] CPT-4: 19319 07/15/2013 Plan of Care Planned Activity Notes C odes Status Date Visit Plan: URI - Pt advised to inc rease fluids, vitamin C. Discussed natural and expected course of this diagnosis and need to alert me if symptoms do not follow expected course, or if any worse. RX sent to patient's pharmacy. Allergies - chronic - recommended pt to use allergy medication as prescribed. Pt has been counseled as to the appropriate use of the medication. Pt to call if allergy symptoms are not controlled with the medication. If using nasal spray, instructions as follows: Nasal spray- use twice daily, one spray per nostril twice daily, after 30 minutes, rinse out nose with saline spray.. Use opposite hand per nostril to spray in the nasal steroid allergy spray. UTI - pt with positive urinalysis - culture sent if appropriate. Antibiotic electronically prescribed to pt's pharmacy of choice. Pt to call if symptoms do not improve. 11/23/2018 Appointment: Joan Garcia WPtel: [facility] (15 min) Moderate 11/23/2018 Patient Education: Patient Medication Summary Completed 11/23/2018 Care Plan: PAP 2 Pending 11/10/2018 Visit Plan: Well Adult Female - exa m completed. Pap and breast exam completed. Pt will be called with results of her testing. She was advised to continue with yearly annual exams. Safe sex practices discussed dony shen office visit today. Call if any abnormal gynecologic issues during the next year, otherwise, RTC yearly or prn. 11/09/2018 Visit Plan: Well Adult Female - exa m completed. Pap and breast exam completed. Pt will be called with results of her testing. She was advised to continue with yearly annual exams. Safe sex practices discussed dony g office visit today. Call if any abnormal gynecologic issues during the next year, otherwise, RTC yearly or prn. 11/09/2018 Appointment: Do Green WPtel: [facility]8 [facility] Well Woman 11/09/2018 Patient Education: Patient Medication Summary Completed 11/09/2018 Visit Plan: UTI - pt with positive urinalysis - culture sent if appropriate. Antibiotic electronically prescribed to pt's pharmacy of choice. Pt to call if symptoms do not improve. Muscle spasm/back pain - will send RX - pt is to notify clinic if symptoms do not improve, if they worsen, or with any changes, questions, or concerns. Hyperlipidemia - pt has been counseled about appropriate diet, exercise, and need for low fat food choices. I have discussed the need for the patient to take medications as prescribed. If the patient has negative side effects from the medication, they are to CALL the office and not abruptly discontinue the medication without discussion with a practitioner in the office. We will check labs in 3-6 months for follow up on the patient's chronic medical problem and to assure normal liver response to medications. 07/23/2018 Appointment: Joan Garcia WPtel: [phone] [facility] (15 min) Moderate 07/23/2018 Patient Education: Patient Medication Summary Completed 07/23/2018 Patient Education: Cholesterol Management Completed 07/23/2018 Visit Plan: Dysuria-bladder pain-UA negative today in the office-recommend patient increase fluids and to let us know if symptoms do not resolve or if any worse -discussed KUB if symptoms persist. Patient verbalized understanding of plan. 04/16/2018 Appointment: Enedelia Blas WPtel: [phone] [facility] [place] [address] (15 min) Moderate 04/16/2018 Patient Education: Patient Medication Summary Completed 04/16/2018 Appointment: Lab Draw 04/13/2018 Patient Education: Patient Medication Summary Completed 04/13/2018 Visit Plan: Well Adult - pt was cou nseled about diet, exercise, and encouraged to follow a heart healthy diet and increase activity level. The patient was instructed to RTC yearly for well adult exams and PRN for acute illnesses. The pt was also instructed to have yearly labs for check of cholesterol, thyroid, chem panel, CBC, and renal functioning. UC - defer to GI specialist 11/07/2017 Appointment: Joan Garcia WPtel: [phone] [facility] Well Woman 11/07/2017 Patient Education: Patient Medication Summary Completed 11/07/2017 Visit Diagnosis Plan: Acute bronchitis, unspecified Discussion: Bronchitis - acute case of bronchitis identified. Pt has been given antibiotics, breathing treatments as appropriate, and pt has been instructed to call if symptoms are not improved, or if symptoms acutely worsen. ICD-9 : 466.0 ICD-10 : J20.9 11/04/2016 Visit Diagnosis Plan: Cough Discussi on: kenalog injection today in the office-RX sent to patient's pharmacy and instructed on use. Recommendations: Mucinex to thin secretions-take twice daily with a full glass of water. ICD-9 : 786.2 ICD-10 : R05 11/04/2016 Patient Education: Patient Medication Summary Completed 11/04/2016 Visit Plan: Well Adult - pt was cou nseled about diet, exercise, and encouraged to follow a heart healthy diet and increase activity level. The patient was instructed to RTC yearly for well adult exams and PRN for acute illnesses. The pt was also instructed to have yearly labs for check of cholesterol, thyroid, chem panel, CBC, and renal functioning. 10/17/2016 Appointment: Enedelia Blas WPtel: [phone] [facility] Well Woman 10/17/2016 Patient Education: Patient Medication Summary Completed 10/17/2016 Visit Plan: Well Adult Female - exa m completed. Pap and gc/chlamydia and breast exam completed. Pt will be called with results of her testing. She was advised to continue with yearly annual exams. Safe sex practice s discussed during office visit today. Call if any abnormal gynecologic issues during the next year, otherwise, RTC yearly or prn. Samples of LO Loestrin FE given to patient x 3 09/06/2015 Visit Plan: Well Adult Female - exa m completed. Pap and gc/chlamydia and breast exam completed. Pt will be called with results of her testing. She was advised to continue with yearly annual exams. Safe sex practice s discussed during office visit today. Call if any abnormal gynecologic issues during the next year, otherwise, RTC yearly or prn. Samples of LO Loestrin FE given to patient x 3 09/06/2015 Appointment: [phone] [facility] [facility] 09/06/2015 Patient Education: Patient Medication Summary Completed 09/06/2015 Care Plan: PAP Pending 09/06/2015 Care Plan: GC/CHL PRB Pending 09/06/2015 Appointment: Injection 06/14/2015 Patient Education: Patient Medication Summary Completed 06/14/2015 Visit Plan: Pharyngitis-Discussed n atural and expected course of this diagnosis and need to alert me if symtpoms do not follow expected course, or if any worse. Recommended salt water gargles as needed for pain. Ty lenol/motrin as needed for fever/discomfort. 11/01/2014 Appointment: Sick 11/01/2014 Patient Education: Patient Medication Summary Completed 11/01/2014 Appointment: Nurse Visit 08/02/2014 Visit Plan: Wound Instructions - Pt was instructed to keep the wound clean, wash with antibacterial soap, use triple antibiotic ointment, call if redness, pustular drainage, or any other acute concerns. Pt to rtc in 10 days for removal of sutures, pt advised no lifting overhead, recommended against participation in planned 5K this weekend. 07/26/2014 Appointment: Do Green WPtel: [facility] [facility] Procedure 07/26/2014 Patient Education: Patient Medication Summary Completed 07/26/2014 Visit Plan: Well Adult Female - exa m completed. Pap and gc/chlamydia and breast exam completed. Pt will be called with results of her testing. She was advised to continue with yearly annual exams. Safe sex practice s discussed during office visit today. Call if any abnormal gynecologic issues during the next year, otherwise, RTC yearly or prn. Pt with new skin lesion on right ear and left upper lip. On right ear - pt notes increase in size and darker coloration of the lesion in the past few months. Left upper lip lesion - increase in size and darkening of red color over the past two months. 06/15/2014 Appointment: Do Green WPtel: [facility] Well Woman 06/15/2014 Patient Education: Patient Medication Summary Completed 06/15/2014 Care Plan: Referral Order SNOMED-CT : [id number] Ordered 06/15/2014 Care Plan: PAP Pending 06/15/2014 Visit Plan: Well Adult Female - exa m completed. Pap and gc/chlamydia and breast exam completed. Pt will be called with results of her testing. She was advised to continue with yearly annual exams. Safe sex practice s discussed during office visit today. Call if any abnormal gynecologic issues during the next year, otherwise, RTC yearly or prn. 07/15/2013 Appointment: Do Green WPtel: [facility] Well Woman 07/15/2013 Patient Education: Patient Medication Summary Completed 07/15/2013 Visit Plan: Well Adult Female - exa m completed. Pap and gc/chlamydia and breast exam completed. Pt will be called with results of her testing. She was advised to continue with yearly annual exams. Safe sex practice s discussed during office visit today. Call if any abnormal gynecologic issues during the next year, otherwise, RTC yearly or prn. 03/09/2012 Appointment: Do Green WPtel[facility] [phone] [facility] Pap Only 03/09/2012 Patient Education: Patient Medication Summary Completed 03/09/2012 Referral: Riley Roy MD WPtel: Referral Initiated Instructions Comment . UTI - pt with posi tive urinalysis - culture sent if appropriate. Antibiotic electronically prescribed to pt's pharmacy of choice. Pt to call if symptoms do not improve. Muscle spasm/back pain - will send RX - pt is to notify clinic if symptoms do not improve, if they worsen, or with any changes, questions, or concerns. Hyperlipidemia - pt has been counseled about appropriate diet, exercise, and need for low fat food choices. I have discussed the need for the patient to take medications as prescribed. If the patient has negative side effects from the medication, they are to CALL the office and not abruptly discontinue the medication without discussion with a practitioner in the office. We will check labs in 3-6 months for follow up on the patient's chronic medical problem and to assure normal liver response to medications. RECOMMEND MAMMOGRAM PELVIC EXAM NEXT YEAR -PAP THE FOLLOWING . Well Adult - pt was counseled about di et, exercise, and encouraged to follow a heart healthy diet and increase activity level. The patient was instructed to RTC yearly for well adult exams and PRN for acute illnesses. The pt was also instructed to have yearly labs for check of cholesterol, thyroid, chem panel, CBC, and renal functioning. Declined Procedure: (14125) FLU VACC 4 JENNIFER 3 YRS PLUS IM; Declined Reason: Patient Declined Declined Procedure: (90004) FLU VAC NO PRSV 4 JENNIFER 3 YRS+; Declined Reason: does not want vaccine . Well Adult Female - exam completed. Pap and gc/chlamydia and breast exam completed. Pt will be called with results of her testing. She was advised to continue with yearly annual exams. Safe sex practices discussed during office visit today. Call if any abnormal gynecologic issues during the next year, otherwise, RTC yearly or prn. Pt with new skin lesion on right ear and left upper lip. On right ear - pt notes increase in size and darker coloration of the lesion in the past few months. Left upper lip lesion - increase in size and darkening of red color over the past two months. . Well Adult Female - exam completed. Pap and gc/chlamydia and breast exam completed. Pt will be called with results of her testing. She was advised to continue with yearly annual exams. Safe sex practices discussed during office visit today. Call if any abnormal gynecologic issues during the next year, otherwise, RTC yearly or prn. . Well Adult Female - exam completed. Pap and gc/chlamydia and breast exam completed. Pt will be called with results of her testing. She was advised to continue with yearly annual exams. Safe sex practices discussed during office visit today. Call if any abnormal gynecologic issues during the next year, otherwise, RTC yearly or prn. Samples of LO Loestrin FE given to patient x 3 . Well Adult Female - exam completed. Pap and gc/chlamydia and breast exam completed. Pt will be called with results of her testing. She was advised to continue with yearly annual exams. Safe sex practices discussed during office visit today. Call if any abnormal gynecologic issues during the next year, otherwise, RTC yearly or prn. Samples of LO Loestrin FE given to patient x 3 . Wound Instructions - Pt was instructed to keep the wound clean, wash with antibacterial soap, use triple antibiotic ointment, call if redness, pustular drainage, or any other acute concerns. Pt to rtc in 10 days for removal of sutures, pt advised no lifting overhead, recommended against participation in planned 5K this weekend. . Well Adult Female - exam completed. Pap and breast exam completed. Pt will be called with results of her testing. She was advised to continue with yearly annual exams. Safe sex practices discussed during office visit today. Call if any abnormal gynecologic issues during the next year, otherwise, RTC yearly or prn. . Well Adult Female - exam completed. Pap and breast exam completed. Pt will be called with results of her testing. She was advised to continue with yearly annual exams. Safe sex practices discussed during office visit today. Call if any abnormal gynecologic issues during the next year, otherwise, RTC yearly or prn. . Pharyngitis-Discus sed natural and expected course of this diagnosis and need to alert me if symtpoms do not follow expected course, or if any worse. Recommended salt water gargles as needed for pain. Tylenol/motrin as needed for fever/discomfort. . Well Adult - pt wa s counseled about diet, exercise, and encouraged to follow a heart healthy diet and increase activity level. The patient was instructed to RTC yearly for well adult exams and PRN for acute illnesses. The pt was also instructed to have yearly labs for check of cholesterol, thyroid, chem panel, CBC, and renal functioning. UC - defer to GI specialist . URI - Pt advised t o increase fluids, vitamin C. Discussed natural and expected course of this diagnosis and need to alert me if symptoms do not follow expected course, or if any worse. RX sent to patient's pharmacy. Allergies - chronic - recommended pt to use allergy medication as prescribed. Pt has been counseled as to the appropriate use of the medication. Pt to call if allergy symptoms are not controlled with the medication. If using nasal spray, instructions as follows: Nasal spray- use twice daily, one spray per nostril twice daily, after 30 minutes, rinse out nose with saline spray.. Use opposite hand per nostril to spray in the nasal steroid allergy spray. UTI - pt with positive urinalysis - culture sent if appropriate. Antibiotic electronically prescribed to pt's pharmacy of choice. Pt to call if symptoms do not improve. Increase fluids prelief otc KUB if symptoms do not resolve -call next week with update . Dysuria-bladder pain-UA negative today in the office-recommend patient increase fluids and to let us know if symptoms do not resolve or if any worse - discussed KUB if symptoms persist. Patient verbalized understanding of plan. . Well Adult Female - exam completed. Pap and gc/chlamydia and breast exam completed. Pt will be called with results of her testing. She was advised to continue with yearly annual exams. Safe sex practices discussed during office visit today. Call if any abnormal gynecologic issues during the next year, otherwise, RTC yearly or prn.
--- OUTSIDE RECORDS SUMMARY | 2020-04-28 13:13 | XMS REPORT | CCD ---
Author Author Serena Green Organization Do Green MD, [facility] Address [address] [place] [address] Phone Care Team Providers Care Belting Cutter Name Role Phone PP Unavailable CCM Unavailable Summary Purpose Interface Exchange Insurance Providers Payer name Policy type / Coverage type Covered republican ID Effective Begin Date Effective End Date Blue Cross Blue Shield [facility] e Cross/Blue Shield [id number] Un known Family history Father Diagnosis Age [...] Employment Unknown Curre ntly employed works in [employer] at [employer] 03/09/[address]: 603520730 Nonsmoker 03/09/[address]: 578756653 Never drinks alcohol 03/09/2012 Allergies, Adverse Reactions, Alerts Substance Reaction Codes Entered Date Inactivated Date Status biaxin RxNorm: 21149 03/09/2012 No Inactive Date Active Past Medical [...] Date Stop Date Sta tus Fill Instructions simvastatin 20 mg ta blet RxNorm: 795608 1 Tablet(s) PO daily 01/08/2019 No Stop Date Active Augmentin 875 mg-125 mg tablet RxNorm: 865174 1 Tablet(s) PO BID 11/23/2018 12/02/2018 Inactive Keflex 500 mg capsule RxNorm: 145232 1 Capsule(s) PO TID 07/24/2018 07/30/2018 Inactive cyclobenzaprine 5 mg tablet RxNorm: 901051 1 Tablet(s) PO TID as needed muscle spasms 07/24/2018 07/30/2018 Inactive simvastatin 20 mg ta blet RxNorm: 095211 1 Tablet(s) PO daily 07/23/2018 10/20/2018 Inactive simvastatin 10 mg ta blet RxNorm: 615880 TAKE 1 TABLET BY MOUT H ONCE A DAY 04/09/2018 10/05/2018 In active simvastatin 10 mg ta blet RxNorm: 315735 TAKE 1 TABLET BY MOUT H ONCE A DAY 12/12/2017 03/11/2018 In active simvastatin 10 mg ta blet RxNorm: 871085 Tablet(s) TAKE 1 TABL ET BY MOUTH ONCE A DAY 06/12/2017 12/08/2017 In active simvastatin 10 mg ta blet RxNorm: 914390 Tablet(s) TAKE 1 TABL ET BY MOUTH ONCE A DAY 03/05/2017 04/15/2018 In active cefdinir 300 mg capsule RxNorm: 548445 1 Capsule(s) PO BID 11/08/2016 11/07/2016 Inactive cefdinir 300 mg capsule RxNorm: 242864 1 Capsule(s) PO BID 11/08/2016 11/14/2016 Inactive Kenalog 40 mg/mL cielo pension for injection RxNorm: 8063680 1 Milliliter(s) Inj 11/04/2016 11/04/2016 In active Zithromax Z-Remy 250 mg tablet RxNorm: 664427 1 Tablet(s) PO UD 11/04/2016 11/08/2016 Inactive zpack Phenergan with Codei ne Syrup RxNorm: 5-10 Milliliter(s) PO Q6 PRN 11/04/2016 11/03/2017 Inactive simvastatin 10 mg ta blet RxNorm: 371887 Tablet(s) TAKE 1 TABL ET BY MOUTH ONCE A DAY 08/14/2016 02/09/2017 In active simvastatin 10 mg ta blet RxNorm: 954091 1 Tablet(s) PO daily TAKE 1 TABLET BY MOUTH ONCE A DAY 07/25/2015 08/13/2016 Inactive [SAVINGS FOR UNINSURED ESA ENTS -- BIN:[id number], PCN: ASPROD1, Group: [id number], ID# [id number], Process claim through [employer], for questions: . THIS IS NOT INSURANCE.] prednisone 10 mg tab lets in a dose pack RxNorm: 119741 Tablet(s) PO UD 06/22/2015 09/05/2015 In active 6-5-4-3-2-1 schedule Kenalog 40 mg/mL cielo pension for injection RxNorm: 9773931 Milliliter(s) Inj 06/14/2015 06/14/2015 In active amoxicillin 500 mg t ablet RxNorm: 878536 1 Tablet(s) PO TID 11/01/2014 11/10/2014 Inactive Bactrim DS 800 mg-16 0 mg tablet RxNorm: 670661 1 Tablet(s) PO BID 06/28/2014 07/04/2014 Inactive [SAVINGS FOR UNINSURED PATIENTS -- BIN:[id number], PCN: ASPROD1, Group: [id number], ID# [id number], Process claim through [employer], for questions: . THIS IS NOT INSURANCE.] Bactrim DS 800 mg-16 0 mg tablet RxNorm: 473562 1 Tablet(s) PO BID 06/28/2014 06/27/2014 Inactive simvastatin 10 mg ta blet RxNorm: 232358 1 Tablet(s) PO daily TAKE 1 TABLET BY MOUTH ONCE A DAY 06/23/2014 07/24/2015 Inactive [SAVINGS FOR UNINSURED ESA ENTS -- BIN:[id number], PCN: ASPROD1, Group: [id number], ID# [id number], Process claim through MedImpact, for questions: . THIS IS NOT INSURANCE.] Diflucan 150 mg tablet RxNorm: 598952 1 Tablet(s) PO daily 06/17/2014 06/16/2014 Inactive Diflucan 150 mg tablet RxNorm: 040161 1 Tablet(s) PO daily 06/17/2014 06/23/2014 Inactive [SAVINGS FOR UNINSURED PATIENTS -- BIN:0 14720, PCN: ASPROD1, Group: [id number], ID# [id number], Process claim through MedImpact, for questions: . THIS IS NOT INSURANCE.] Seasonique 0.15 mg-3 0 mcg (84)/10 mcg(7) tablets,3 month dose pack RxNorm: 574161 1 Tablet(s) PO daily 06/15/2014 09/05/2015 Inactive [SAVINGS FOR UNINSURED ESA ENTS -- BIN:405407, PCN: ASPROD1, Group: [id number], ID# [id number], Process claim through MedImpact, for questions: . THIS IS NOT INSURANCE.] simvastatin 10 mg ta blet RxNorm: 202929 Tablet(s) PO TAKE 1 T ABLET BY MOUTH ONCE A DAY 10/25/2013 06/22/2014 Inactive potassium chloride E R 20 mEq tablet,extended release(part/cryst) RxNorm: 8742005 1 Tablet(s) PO daily 11/03/2012 11/16/2012 Inactive potassium chloride E R 20 mEq tablet,extended release(part/cryst) RxNorm: 3139584 1 Tablet(s) PO daily 11/03/2012 11/02/2012 Inactive simvastatin 10 mg ta blet RxNorm: 725552 1 Tablet(s) PO daily 11/03/2012 07/30/2013 Inactive simvastatin 10 mg ta blet RxNorm: 475135 1 Tablet(s) PO daily needs labs 10/14/2012 11/02/2012 In active simvastatin 10 mg ta blet RxNorm: 409732 1 Tablet(s) PO daily 09/24/2011 01/21/2012 Inactive Humira subcutaneous RxNorm: 221855 subcutaneous No Start Date Active Vitamin C 1,000 mg t ablet RxNorm: 631416 1 Tablet(s) PO daily No Start Date Active Vitamin B-12 1,000 m cg tablet RxNorm: 572496 1 Tablet(s) PO daily No Start Date Active Probiotic oral RxNorm: 6205 oral No Start Date Active Remicade 100 mg IV S olution RxNorm: 780197 IV every 8 weeks No Start Date 09/05/2015 Inactive Fish Oil 360 mg-1,20 0 mg capsule RxNorm: 608955 1 Capsule(s) PO BID No Start Date 11/03/2017 Inactive prednisone 10 mg tab lets in a dose pack RxNorm: 909323 Tablet(s) PO UD No Start Date 06/21/2015 Inactive 6-5-4-3-2-1 schedule Medication Administered Medication Codes Instruc tions Start Date Status Kenalog 40 mg/mL suspension for injection RxNorm: 7379736 1Milliliter 11/04/2016 N o longer Active Kenalog 40 mg/mL suspension for injection RxNorm: 1555757 Milliliter 06/14/2015 No longer Active Immunizations No [...] sent to ref lab 11/24/2018 Culture Urine [id number] URI NE CULTURE SEE NOTES 07/30/2018 Urine Culture Ucult Prel iminary NO Growth Day 1 07/29 Urine Culture Ucult Comp lete Growth of aerobe sent to ref lab 07/29/2018 GC/CHL PRB [id number] CHLM PROBE NEG 06/17/2014 GC/CHL PRB [id number] GC ME OBE NEG 06/17/2014 GC/CHL PRB [id number] CHLM PROBE NEG 07/16/2013 GC/CHL PRB [id number] GC ME OBE NEG 07/16/2013 Review of Systems System [...] nourished 11/09/2018 None Full Exam - General 1994 Eyes conjunctiva/eyelids Overall: conjunctiva clear 11/09/2018 None [...] developed 11/07/2017 None Full Exam - General 1995 Constitutional general appearance Overall: in no acute distress 11/07/2017 None Full Exam - General 1995 Constitutional general appearance Overall: well nourished 11/07/2017 None Full Exam - General 1995 Eyes conjunctiva/eyelids Overall: conjunctiva clear 11/07/2017 None [...] clear 11/07/2017 None Full Exam - General 1995 Ears/Nose/Throat otoscopic exam Overall: external auditory canals clear 11/07/2017 None Full Exam - General 1994 Ears/Nose/Throat lips/teeth/gingiva Overall: benign lips 11/07/2017 None Full Exam - General 1994 Ears/Nose/Throat oral cavity/pharynx/larynx Overall: oral mucosa clear 11/07/2017 None Full Exam - General 1995 Ears/Nose/Throat oral cavity/pharynx/larynx Overall: oropharyngeal mucosa clear [...] Date URINALYSIS NONAUTO W /O SCOPE CPT-4: 12676 04/16/2018 URINALYSIS NONAUTO W /O SCOPE CPT-4: 98723 04/13/2018 TRIAMCINOLONE ACET I [place] NOS CPT-4: J3301 11/04/2016 CHLM PROBE (CHYLMD T CODEY DNA AMP PROBE) CPT-4: 78504 09/06/2015 THER/PROPH/DIAG INJ SC/IM CPT-4: 59905 06/14/2015 TRIAMCINOLONE ACET I [place] NOS CPT-4: J3301 06/14/2015 C RAP A SC (STREP A ASSAY W/OPTIC) CPT-4: 26897 11/01/2014 BIOPSY SKIN LESION CPT- 4: 38725 07/26/2014 BIOPSY SKIN ADD-ON CPT- 4: 08500 07/26/2014 PREV VISIT EST AGE 4 0-64 CPT-4: 42689 03/09/2012 Vital Signs Date Vital 11/23/2018 Blood Pressure 1: 120/74 Code: 8480-6 BMI: 22.7 Code: 97836-0 Heart Rate 1: 82 bpm Height: 5'8" SpO2: 98% Temperature: 37.7 (C ) / 99.9 (F) Weight: 149 lbs 11/09/2018 Blood Pressure 1: 130/88 Code: 8480-6 BMI: 22.4 Code: 95295-4 Heart Rate 1: 72 bpm Height: 5'8" SpO2: 98% Weight: 147 lbs 07/23/2018 Blood Pressure 1: 138/82 Code: 8480-6 BMI: 22.8 Code: 83499-2 Heart Rate 1: 82 bpm Height: 5'8" SpO2: 99% Weight: 150 lbs 04/16/2018 Blood Pressure 1: 140/84 Code: 8480-6 BMI: 22.5 Code: 46137-0 Heart Rate 1: 71 bpm Height: 5'8" SpO2: 98% Weight: 148 lbs 11/07/2017 Blood Pressure 1: 132/74 Code: 8480-6 BMI: 23.0 Code: 44131-8 Heart Rate 1: 69 bpm Height: 5'8" SpO2: 99% Weight: 151 lbs 11/04/2016 Heart Rate 1: 99 bpm Height: 5'8" SpO2: 98% Temperature: 37.1 (C) / 98.7 (F) 10/17/2016 Blood Pressure 1: 132/76 Code: 8480-6 BMI: 23.1 Code: 86161-1 Heart Rate 1: 102 bpm Height: 5'8" SpO2: 99% Weight: 152 lbs 09/06/2015 Blood Pressure 1: 138/84 Code: 8480-6 BMI: 22.4 Code: 71667-0 Heart Rate 1: 83 bpm Height: 5'8" SpO2: 96% Weight: 147 lbs 11/01/2014 Blood Pressure 1: 122/84 Code: 8480-6 BMI: 23.0 Code: 69536-5 Heart Rate 1: 92 bpm Height: 5'8" Weight: 151 lbs 07/26/2014 Blood Pressure 1: 118/72 Code: 8480-6 BMI: 22.5 Code: 90519-4 Heart Rate 1: 78 bpm Height: 5'8" Weight: 148 lbs 06/15/2014 Blood Pressure 1: 140/78 Code: 8480-6 BMI: 22.2 Code: 90848-6 Heart Rate 1: 80 bpm Height: 5'8" Weight: 146 lbs 07/15/2013 Blood Pressure 1: 128/76 Code: 8480-6 BMI: 21.9 Code: 60199-2 Heart Rate 1: 80 bpm Height: 5'8" Weight: 144 lbs 03/09/2012 Blood Pressure 1: 122/88 Code: 8480-6 BMI: 21.1 Code: 94384-2 Heart Rate 1: 73 bpm Height: 5'8" [...] None well woman exam (40-65 years) Breast /[employer] Complaints perimenopausal symptoms 03/09/2012 None well woman [...] Encounters Encounter Performer Loca tion Codes Date [id number] EST. PATIENT, LEVEL III Diagnosis: Dysuria[ICD10: R30.0] Diagnosis: Acute laryngopharyngitis[ICD10: J06.0] Diagnosis: Other allergic rhinitis[ICD10: J30.89] [facility] CPT-4: 23816 11/23/2018 ([id number]) PREV VISIT E ST AGE 40-64 Diagnosis: Encounter for gynecological examination (general) (routine) without abnormal findings[ICD10: Z01.419] [facility] CPT-4: 54317 11/09/2018 [id number] EST. PATIENT, LEVEL IV Diagnosis: Dysuria[ICD10: R30.0] Diagnosis: Muscle spasm of back[ICD10: M62.830] Diagnosis: Mixed hyperlipidemia[ICD10: E78.2] [facility] CPT-4: 20640 07/23/2018 ([id number]) 77031 EST. P ATIENT, LEVEL III Diagnosis: Dysuria[ICD10: R30.0] [facility] CPT-4: 17119 04/16/2018 ([id number]) PREV VISIT E AGE 40-64 Diagnosis: Encounter for general adult medical examination with abnormal findings[ICD10: Z00.01] Diagnosis: Other ulcerative colitis without complications[ICD10: K51.80] [facility] CPT-4: 24235 11/07/2017 ([id number]) 56391 EST. P ATIENT, LEVEL III Diagnosis: Cough[ICD10: R05] Diagnosis: Acute bronchitis, unspecified[ICD10: J20.9] [facility] CPT-4: 51421 11/04/2016 ([id number]) PREV VISIT E AGE 40-64 Diagnosis: Encounter for gynecological examination (general) (routine) without abnormal findings[ICD10: Z01.419] [facility] CPT-4: 17381 10/17/2016 ([id number]) 19466 EST. P ATIENT, LEVEL III Diagnosis: ACUTE PHARYNGITIS[ICD9: 462] [facility] CPT- 4: 80481 11/01/2014 ([id number]) PREV VISIT E AGE 40-64 Diagnosis: ROUTINE GYNE EXAM[ICD9: V72.31] Diagnosis: Skin lesion[ICD9: 709.9] [facility] CPT-4: 67702 06/15/2014 ([id number]) PREV VISIT E AGE 40-64 Diagnosis: ROUTINE GYNE EXAM[ICD9: V72.31] [facility] CPT-4: 20774 07/15/2013 Plan of Care Planned Activity Notes [...] not improve. 11/23/2018 Appointment: Joan Garcia WPtel: [facility] (15 min) Moderate 11/23/2018 Patient Education: Patient [...] or prn. 11/09/2018 Appointment: Do Green WPtel: [facility] 11/09/2018 Patient Education: Patient Medication [...] to medications. 07/23/2018 Appointment: Joan Garcia WPtel: [phone] [facility] (15 min) Moderate 07/23/2018 Patient Education: Patient Medication Summary Completed 07/23/2018 Patient Education: Cholesterol Management Completed 07/23/2018 Visit Plan: Dysuria-bladder pain-UA negative today in the office-recommend patient increase fluids and to let us know if symptoms do not resolve or if any worse -discussed KUB if symptoms persist. Patient verbalized understanding of plan. 04/16/2018 Appointment: Enedelia Blas WPtel: [phone] [id number] (15 min) Moderate 04/16/2018 Patient Education: Patient [...] GI specialist 11/07/2017 Appointment: Joan Garcia WPtel: [address] [facility] [facility] 11/07/2017 Patient Education: Patient Medication [...] functioning. 10/17/2016 Appointment: Enedelia Blas WPtel: [phone] [facility] [facility] 10/17/2016 Patient Education: Patient Medication [...] x 3 09/06/2015 Appointment: Do Green WPtel: [phone] [facility] [facility] 09/06/2015 Patient Education: Patient Medication [...] in planned 5K this weekend. 07/26/2014 Appointment: oD Green WPtel: [facility] Surgical Procedure 07/26/2014 Patient Education: Patient Medication [...] two months. 06/15/2014 Appointment: Do Green WPtel: [phone] [facility] [facility] 06/15/2014 Patient Education: Patient Medication Summary Completed 06/15/2014 Care Plan: Referral Order SNOMED-CT : [id number] Ordered 06/15/2014 Care Plan: PAP Pending 06/15/2014 [...] or prn. 07/15/2013 [phone] [facility] 07/15/2013 Patient Education: Patient [...] or prn. 03/09/2012 [facility]ment[phone] [facility] Only 03/09/2012 Patient Education: Patient [...] panel, CBC, and renal functioning. Declined Procedure: (98025) FLU VACC 4 JENNIFER 3 YRS PLUS IM; Declined Reason: Patient Declined Declined Procedure: (66459) FLU VAC NO PRSV 4 JENNIFER 3 [...]
--- OUTSIDE RECORDS SUMMARY | 2020-04-28 13:14 | XMS REPORT | CCD ---
Author Author Serena Green Organization Do Green MD, [facility] Address [address] [place] [address] Phone Care Team Providers Care Host And Hostess Name Role Phone PP Unavailable CCM Unavailable Summary Purpose Interface Exchange Insurance Providers Payer name Policy type / Coverage type Covered libertarian ID Effective Begin Date Effective End Date Blue Cross Blue Shield [facility] e Cross/Blue Shield [id number] Un known Family history Father Diagnosis Age [...] Employment Unknown Curre ntly employed works in [employer] in [place] 03/09/[address]: 319314794 Nonsmoker 03/09/[address]: 447808559 Never drinks alcohol 03/09/2012 Allergies, Adverse Reactions, Alerts Substance Reaction Codes Entered Date Inactivated Date Status biaxin RxNorm: 01494 03/09/2012 No Inactive Date Active Past Medical [...] Instructions Augmentin 875 mg-125 mg tablet RxNorm: 942521 1 Tablet(s) PO BID 11/23/2018 12/02/2018 Active Keflex 500 mg capsule RxNorm: 677527 1 Capsule(s) PO TID 07/24/2018 07/30/2018 Inactive cyclobenzaprine 5 mg tablet RxNorm: 004640 1 Tablet(s) PO TID as needed muscle spasms 07/24/2018 07/30/2018 Inactive simvastatin 20 mg ta blet RxNorm: 815254 1 Tablet(s) PO daily 07/23/2018 10/20/2018 Inactive simvastatin 10 mg ta blet RxNorm: 206223 TAKE 1 TABLET BY MOUT H ONCE A DAY 04/09/2018 10/05/2018 In active simvastatin 10 mg ta blet RxNorm: 555620 TAKE 1 TABLET BY MOUT H ONCE A DAY 12/12/2017 03/11/2018 In active simvastatin 10 mg ta blet RxNorm: 667496 Tablet(s) TAKE 1 TABL ET BY MOUTH ONCE A DAY 06/12/2017 12/08/2017 In active simvastatin 10 mg ta blet RxNorm: 906502 Tablet(s) TAKE 1 TABL ET BY MOUTH ONCE A DAY 03/05/2017 04/15/2018 In active cefdinir 300 mg capsule RxNorm: 769318 1 Capsule(s) PO BID 11/08/2016 11/07/2016 Inactive cefdinir 300 mg capsule RxNorm: 873915 1 Capsule(s) PO BID 11/08/2016 11/14/2016 Inactive Kenalog 40 mg/mL cielo pension for injection RxNorm: 4317862 1 Milliliter(s) Inj 11/04/2016 11/04/2016 In active Zithromax Z-Remy 250 mg tablet RxNorm: 602947 1 Tablet(s) PO UD 11/04/2016 11/08/2016 Inactive zpack Phenergan with Codei ne Syrup RxNorm: 5-10 Milliliter(s) PO Q6 PRN 11/04/2016 11/03/2017 Inactive simvastatin 10 mg ta blet RxNorm: 162411 Tablet(s) TAKE 1 TABL ET BY MOUTH ONCE A DAY 08/14/2016 02/09/2017 In active simvastatin 10 mg ta blet RxNorm: 072731 1 Tablet(s) PO daily TAKE 1 TABLET BY MOUTH ONCE A DAY 07/25/2015 08/13/2016 Inactive [SAVINGS FOR UNINSURED ESA ENTS -- BIN:529676, PCN: ASPROD1, Group: [id number], ID# [id number], Process claim through [employer], for questions: . THIS IS NOT INSURANCE.] prednisone 10 mg tab lets in a dose pack RxNorm: 825393 Tablet(s) PO UD 06/22/2015 09/05/2015 In active 6-5-4-3-2-1 schedule Kenalog 40 mg/mL cielo pension for injection RxNorm: 3984673 Milliliter(s) Inj 06/14/2015 06/14/2015 In active amoxicillin 500 mg t ablet RxNorm: 478862 1 Tablet(s) PO TID 11/01/2014 11/10/2014 Inactive Bactrim DS 800 mg-16 0 mg tablet RxNorm: 196704 1 Tablet(s) PO BID 06/28/2014 07/04/2014 Inactive [SAVINGS FOR UNINSURED PATIENTS -- BIN:0 30299, PCN: ASPROD1, Group: [id number], ID# [id number], Process claim through [employer], for questions: . THIS IS NOT INSURANCE.] Bactrim DS 800 mg-16 0 mg tablet RxNorm: 014975 1 Tablet(s) PO BID 06/28/2014 06/27/2014 Inactive simvastatin 10 mg ta blet RxNorm: 502946 1 Tablet(s) PO daily TAKE 1 TABLET BY MOUTH ONCE A DAY 06/23/2014 07/24/2015 Inactive [SAVINGS FOR UNINSURED ESA ENTS -- BIN:275348, PCN: ASPROD1, Group: [id number], ID# [id number], Process claim through [employer], for questions: . THIS IS NOT INSURANCE.] Diflucan 150 mg tablet RxNorm: 556979 1 Tablet(s) PO daily 06/17/2014 06/16/2014 Inactive Diflucan 150 mg tablet RxNorm: 640870 1 Tablet(s) PO daily 06/17/2014 06/23/2014 Inactive [SAVINGS FOR UNINSURED PATIENTS -- BIN:0 70676, PCN: ASPROD1, Group: [id number], ID# [id number], Process claim through [employer], for questions: . THIS IS NOT INSURANCE.] Seasonique 0.15 mg-3 0 mcg (84)/10 mcg(7) tablets,3 month dose pack RxNorm: 336119 1 Tablet(s) PO daily 06/15/2014 09/05/2015 Inactive [SAVINGS FOR UNINSURED ESA ENTS -- BIN:955308, PCN: ASPROD1, Group: [id number], ID# [id number], Process claim through [employer], for questions: . THIS IS NOT INSURANCE.] simvastatin 10 mg ta blet RxNorm: 688130 Tablet(s) PO TAKE 1 T ABLET BY MOUTH ONCE A DAY 10/25/2013 06/22/2014 Inactive potassium chloride E R 20 mEq tablet,extended release(part/cryst) RxNorm: 7693307 1 Tablet(s) PO daily 11/03/2012 11/16/2012 Inactive potassium chloride E R 20 mEq tablet,extended release(part/cryst) RxNorm: 1312356 1 Tablet(s) PO daily 11/03/2012 11/02/2012 Inactive simvastatin 10 mg ta blet RxNorm: 169514 1 Tablet(s) PO daily 11/03/2012 07/30/2013 Inactive simvastatin 10 mg ta blet RxNorm: 122142 1 Tablet(s) PO daily needs labs 10/14/2012 11/02/2012 In active simvastatin 10 mg ta blet RxNorm: 001474 1 Tablet(s) PO daily 09/24/2011 01/21/2012 Inactive Humira subcutaneous RxNorm: 201421 subcutaneous No Start Date Active Vitamin C 1,000 mg t ablet RxNorm: 606891 1 Tablet(s) PO daily No Start Date Active Vitamin B-12 1,000 m cg tablet RxNorm: 791423 1 Tablet(s) PO daily No Start Date Active Probiotic oral RxNorm: 6205 oral No Start Date Active Remicade 100 mg IV S olution RxNorm: 660960 IV every 8 weeks No Start Date 09/05/2015 Inactive Fish Oil 360 mg-1,20 0 mg capsule RxNorm: 951164 1 Capsule(s) PO BID No Start Date 11/03/2017 Inactive prednisone 10 mg tab lets in a dose pack RxNorm: 282450 Tablet(s) PO UD No Start Date 06/21/2015 Inactive 6-5-4-3-2-1 schedule Medication Administered Medication Codes Instruc tions Start Date Status Kenalog 40 mg/mL suspension for injection RxNorm: 0766360 1Milliliter 11/04/2016 N o longer Active Kenalog 40 mg/mL suspension for injection RxNorm: 3194491 Milliliter 06/14/2015 No longer Active Immunizations No [...] sent to ref lab 11/24/2018 Culture Urine [id number] URI NE CULTURE SEE NOTES 07/30/2018 Urine Culture Ucult Prel iminary NO Growth Day 1 07/29 Urine Culture Ucult Comp lete Growth of aerobe sent to ref lab 07/29/2018 GC/CHL PRB [id number] CHLM PROBE NEG 06/17/2014 GC/CHL PRB [id number] GC OK OBE NEG 06/17/2014 GC/CHL PRB [id number] CHLM PROBE NEG 07/16/2013 GC/CHL PRB [id number] GC OK OBE NEG 07/16/2013 Review of Systems System [...] Date URINALYSIS NONAUTO W /O SCOPE CPT-4: 17710 04/16/2018 URINALYSIS NONAUTO W /O SCOPE CPT-4: 12483 04/13/2018 TRIAMCINOLONE ACET I [place] NOS CPT-4: J3301 11/04/2016 CHLM PROBE (CHYLMD T CODEY DNA AMP PROBE) CPT-4: 85287 09/06/2015 THER/PROPH/DIAG INJ SC/IM CPT-4: 54967 06/14/2015 TRIAMCINOLONE ACET I [place] NOS CPT-4: J3301 06/14/2015 C RAP A SC (STREP A ASSAY W/OPTIC) CPT-4: 83621 11/01/2014 BIOPSY SKIN LESION CPT- 4: 99993 07/26/2014 BIOPSY SKIN ADD-ON CPT- 4: 49049 07/26/2014 PREV VISIT EST AGE 4 0-64 CPT-4: 99850 03/09/2012 Vital Signs Date Vital 11/23/2018 Blood Pressure 1: 120/74 Code: 8480-6 BMI: 22.7 Code: 39999-3 Heart Rate 1: 82 bpm Height: 5'8" SpO2: 98% Temperature: 37.7 (C ) / 99.9 (F) Weight: 149 lbs 11/09/2018 Blood Pressure 1: 130/88 Code: 8480-6 BMI: 22.4 Code: 22687-3 Heart Rate 1: 72 bpm Height: 5'8" SpO2: 98% Weight: 147 lbs 07/23/2018 Blood Pressure 1: 138/82 Code: 8480-6 BMI: 22.8 Code: 77243-6 Heart Rate 1: 82 bpm Height: 5'8" SpO2: 99% Weight: 150 lbs 04/16/2018 Blood Pressure 1: 140/84 Code: 8480-6 BMI: 22.5 Code: 76032-0 Heart Rate 1: 71 bpm Height: 5'8" SpO2: 98% Weight: 148 lbs 11/07/2017 Blood Pressure 1: 132/74 Code: 8480-6 BMI: 23.0 Code: 05198-5 Heart Rate 1: 69 bpm Height: 5'8" SpO2: 99% Weight: 151 lbs 11/04/2016 Heart Rate 1: 99 bpm Height: 5'8" SpO2: 98% Temperature: 37.1 (C) / 98.7 (F) 10/17/2016 Blood Pressure 1: 132/76 Code: 8480-6 BMI: 23.1 Code: 79916-5 Heart Rate 1: 102 bpm Height: 5'8" SpO2: 99% Weight: 152 lbs 09/06/2015 Blood Pressure 1: 138/84 Code: 8480-6 BMI: 22.4 Code: 89360-6 Heart Rate 1: 83 bpm Height: 5'8" SpO2: 96% Weight: 147 lbs 11/01/2014 Blood Pressure 1: 122/84 Code: 8480-6 BMI: 23.0 Code: 15504-7 Heart Rate 1: 92 bpm Height: 5'8" Weight: 151 lbs 07/26/2014 Blood Pressure 1: 118/72 Code: 8480-6 BMI: 22.5 Code: 91644-8 Heart Rate 1: 78 bpm Height: 5'8" Weight: 148 lbs 06/15/2014 Blood Pressure 1: 140/78 Code: 8480-6 BMI: 22.2 Code: 60527-5 Heart Rate 1: 80 bpm Height: 5'8" Weight: 146 lbs 07/15/2013 Blood Pressure 1: 128/76 Code: 8480-6 BMI: 21.9 Code: 00700-1 Heart Rate 1: 80 bpm Height: 5'8" Weight: 144 lbs 03/09/2012 Blood Pressure 1: 122/88 Code: 8480-6 BMI: 21.1 Code: 98831-4 Heart Rate 1: 73 bpm Height: 5'8" [...] None well woman exam (40-65 years) Breast /[employer] Complaints perimenopausal symptoms 03/09/2012 None well woman [...] Encounters Encounter Performer Loca tion Codes Date 82609 EST. PATIENT, LEVEL III Diagnosis: Dysuria[ICD10: R30.0] Diagnosis: Acute laryngopharyngitis[ICD10: J06.0] Diagnosis: Other allergic rhinitis[ICD10: J30.89] [facility] CPT-4: 82726 11/23/2018 ([id number]) PREV VISIT E ST AGE 40-64 Diagnosis: Encounter for gynecological examination (general) (routine) without abnormal findings[ICD10: Z01.419] [facility] CPT-4: 34497 11/09/2018 81910 EST. PATIENT, LEVEL IV Diagnosis: Dysuria[ICD10: R30.0] Diagnosis: Muscle spasm of back[ICD10: M62.830] Diagnosis: Mixed hyperlipidemia[ICD10: E78.2] [facility] CPT-4: 85487 07/23/2018 ([id number]) 21124 EST. P ATIENT, LEVEL III Diagnosis: Dysuria[ICD10: R30.0] [facility] CPT-4: 18949 04/16/2018 ([id number]) PREV VISIT E AGE 40-64 Diagnosis: Encounter for general adult medical examination with abnormal findings[ICD10: Z00.01] Diagnosis: Other ulcerative colitis without complications[ICD10: K51.80] Joan Green MD, [facility] CPT-4: 04174 11/07/2017 ([id number]) 98599 EST. P ATIENT, LEVEL III Diagnosis: Cough[ICD10: R05] Diagnosis: Acute bronchitis, unspecified[ICD10: J20.9] [facility] CPT-4: 13549 11/04/2016 ([id number]) PREV VISIT E AGE 40-64 Diagnosis: Encounter for gynecological examination (general) (routine) without abnormal findings[ICD10: Z01.419] Enedelia Green MD, [facility] CPT-4: 47983 10/17/2016 ([id number]) 54939 EST. P ATIENT, LEVEL III Diagnosis: ACUTE PHARYNGITIS[ICD9: 462] [facility] CPT- 4: 21081 11/01/2014 ([id number]) PREV VISIT E AGE 40-64 Diagnosis: ROUTINE GYNE EXAM[ICD9: V72.31] Diagnosis: Skin lesion[ICD9: 709.9] Do Green MD, [facility] CPT-4: 17068 06/15/2014 ([id number]) PREV VISIT E AGE 40-64 Diagnosis: ROUTINE GYNE EXAM[ICD9: V72.31] [facility] CPT-4: 00904 07/15/2013 Plan of Care Planned Activity Notes [...] not improve. 11/23/2018 Appointment: Joan Garcia WPtel: [facility] [address] (15 min) Moderate 11/23/2018 Patient Education: [...] or prn. 11/09/2018 Appointment: Do Green WPtel: [facility] 11/09/2018 Patient Education: Patient [...] medications. 07/23/2018 Appointment: Joan Garcia WPtel: [address] [facility] (15 min) Moderate 07/23/2018 Patient Education: Patient Medication Summary Completed 07/23/2018 Patient Education: Cholesterol Management Completed 07/23/2018 Visit Plan: Dysuria-bladder pain-UA negative today in the office-recommend patient increase fluids and to let us know if symptoms do not resolve or if any worse -discussed KUB if symptoms persist. Patient verbalized understanding of plan. 04/16/2018 Appointment: Enedelia Blas WPtel: [phone] [facility] [place] [address] (15 min) Moderate 04/16/2018 Patient Education: Patient [...] specialist 11/07/2017 Appointment: Joan Garcia WPtel: [phone] [facility] [facility] 11/07/2017 Patient Education: Patient [...] functioning. 10/17/2016 Appointment: Enedelia Blas WPtel: [phone] [facility] 10/17/2016 Patient Education: [...] x 3 09/06/2015 [facility]ment[phone] [facility] [facility] 09/06/2015 Patient Education: Patient [...] this weekend. 07/26/2014 Appointment: Do Green WPtel: [facility] [facility] 07/26/2014 Patient Education: Patient [...] two months. 06/15/2014 Appointment: Do Green WPtel: [facility] [facility] 06/15/2014 Patient Education: Patient Medication Summary Completed 06/15/2014 Care Plan: Referral Order SNOMED-CT : [id number] Ordered 06/15/2014 Care Plan: PAP Pending 06/15/2014 [...] or prn. 07/15/2013 Appointment: Do Green WPtel[facility] [facility] 07/15/2013 Patient Education: Patient [...] or prn. 03/09/2012 Appointment: Do [facility] [phone] [facility] [facility] Only 03/09/2012 Patient Education: Patient [...] panel, CBC, and renal functioning. Declined Procedure: (08616) FLU VACC 4 JENNIFER 3 YRS PLUS IM; Declined Reason: Patient Declined Declined Procedure: (07678) FLU VAC NO PRSV 4 JENNIFER 3 [...]
--- OUTSIDE RECORDS SUMMARY | 2020-04-28 13:15 | XMS REPORT | CCD ---
Author Author Serena Green Organization Do Green MD, [facility] Address [address] [place] [address] Phone Care Team Providers Care Environmental Engineer Scientist Name Role Phone PP Unavailable CCM Unavailable Summary Purpose Interface Exchange Insurance Providers Payer name Policy type / Coverage type Covered alliance party ID Effective Begin Date Effective End Date Blue Cross Blue Shield [facility] e Cross/Blue Shield [id number] Un known Family history Father Diagnosis Age [...] Employment Unknown Curre ntly employed works in [employer] at [employer] in [email or web address] 03/09/[address]: 435046690 Nonsmoker 03/09/[address]: 904643457 Never drinks alcohol 03/09/2012 Allergies, Adverse Reactions, Alerts Substance Reaction Codes Entered Date Inactivated Date Status biaxin RxNorm: 57199 03/09/2012 No Inactive Date Active Past Medical History Illness Codes Condition Status Onset Date Resolved Date Encounter for gyneco logical examination (general) (routine) without abnormal findings ICD-9: V72.31 ICD-10: Z01.419 Active 10/16/2016 Unknown Dysuria ICD-9: 788.1 ICD-10: R30.0 Active 04/13/2018 Unknown Mixed hyperlipidemia ICD-9: 272.2 ICD-10: E78.2 [...] Condition Codes Effectiv e Dates Condition Status Encounter for gyneco logical examination (general) (routine) without abnormal findings ICD-9: V72.31 ICD-10: Z01.419 10/16/2016 Active Dysuria ICD-9: 788.1 ICD-10: R30.0 04/13/2018 Active Mixed hyperlipidemia ICD-9: 272.2 ICD-10: E78.2 [...] Date Stop Date Sta tus Fill Instructions Keflex 500 mg capsule RxNorm: 563842 1 Capsule(s) PO TID 07/24/2018 07/30/2018 Inactive cyclobenzaprine 5 mg tablet RxNorm: 938242 1 Tablet(s) PO TID as needed muscle spasms 07/24/2018 07/30/2018 Inactive simvastatin 20 mg ta blet RxNorm: 346149 1 Tablet(s) PO daily 07/23/2018 10/20/2018 Inactive simvastatin 10 mg ta blet RxNorm: 825294 TAKE 1 TABLET BY MOUT H ONCE A DAY 04/09/2018 10/05/2018 In active simvastatin 10 mg ta blet RxNorm: 961877 TAKE 1 TABLET BY MOUT H ONCE A DAY 12/12/2017 03/11/2018 In active simvastatin 10 mg ta blet RxNorm: 281228 Tablet(s) TAKE 1 TABL ET BY MOUTH ONCE A DAY 06/12/2017 12/08/2017 In active simvastatin 10 mg ta blet RxNorm: 205182 Tablet(s) TAKE 1 TABL ET BY MOUTH ONCE A DAY 03/05/2017 04/15/2018 In active cefdinir 300 mg capsule RxNorm: 890990 1 Capsule(s) PO BID 11/08/2016 11/07/2016 Inactive cefdinir 300 mg capsule RxNorm: 333633 1 Capsule(s) PO BID 11/08/2016 11/14/2016 Inactive Kenalog 40 mg/mL cielo pension for injection RxNorm: 4552619 1 Milliliter(s) Inj 11/04/2016 11/04/2016 In active Zithromax Z-Remy 250 mg tablet RxNorm: 014444 1 Tablet(s) PO UD 11/04/2016 11/08/2016 Inactive zpack Phenergan with Codei ne Syrup RxNorm: 5-10 Milliliter(s) PO Q6 PRN 11/04/2016 11/03/2017 Inactive simvastatin 10 mg ta blet RxNorm: 736274 Tablet(s) TAKE 1 TABL ET BY MOUTH ONCE A DAY 08/14/2016 02/09/2017 In active simvastatin 10 mg ta blet RxNorm: 480477 1 Tablet(s) PO daily TAKE 1 TABLET BY MOUTH ONCE A DAY 07/25/2015 08/13/2016 Inactive [SAVINGS FOR UNINSURED ESA ENTS -- BIN:[id number], PCN: ASPROD1, Group: [id number], ID# [id number], Process claim through [employer], for questions: . THIS IS NOT INSURANCE.] prednisone 10 mg tab lets in a dose pack RxNorm: 494762 Tablet(s) PO UD 06/22/2015 09/05/2015 In active 6-5-4-3-2-1 schedule Kenalog 40 mg/mL cielo pension for injection RxNorm: 7115993 Milliliter(s) Inj 06/14/2015 06/14/2015 In active amoxicillin 500 mg t ablet RxNorm: 487865 1 Tablet(s) PO TID 11/01/2014 11/10/2014 Inactive Bactrim DS 800 mg-16 0 mg tablet RxNorm: 672028 1 Tablet(s) PO BID 06/28/2014 07/04/2014 Inactive [SAVINGS FOR UNINSURED PATIENTS -- BIN:0 95187, PCN: ASPROD1, Group: [id number], ID# [id number], Process claim through [employer], for questions: . THIS IS NOT INSURANCE.] Bactrim DS 800 mg-16 0 mg tablet RxNorm: 456512 1 Tablet(s) PO BID 06/28/2014 06/27/2014 Inactive simvastatin 10 mg ta blet RxNorm: 904629 1 Tablet(s) PO daily TAKE 1 TABLET BY MOUTH ONCE A DAY 06/23/2014 07/24/2015 Inactive [SAVINGS FOR UNINSURED ESA ENTS -- BIN:[id number], PCN: ASPROD1, Group: [id number], ID# [id number], Process claim through [employer], for questions: . THIS IS NOT INSURANCE.] Diflucan 150 mg tablet RxNorm: 436657 1 Tablet(s) PO daily 06/17/2014 06/16/2014 Inactive Diflucan 150 mg tablet RxNorm: 538788 1 Tablet(s) PO daily 06/17/2014 06/23/2014 Inactive [SAVINGS FOR UNINSURED PATIENTS -- BIN:0 89042, PCN: ASPROD1, Group: [id number], ID# [id number], Process claim through [employer], for questions: . THIS IS NOT INSURANCE.] Seasonique 0.15 mg-3 0 mcg (84)/10 mcg(7) tablets,3 month dose pack RxNorm: 118200 1 Tablet(s) PO daily 06/15/2014 09/05/2015 Inactive [SAVINGS FOR UNINSURED ESA ENTS -- BIN:720818, PCN: ASPROD1, Group: [id number], ID# [id number], Process claim through [employer], for questions: . THIS IS NOT INSURANCE.] simvastatin 10 mg ta blet RxNorm: 495673 Tablet(s) PO TAKE 1 T ABLET BY MOUTH ONCE A DAY 10/25/2013 06/22/2014 Inactive potassium chloride E R 20 mEq tablet,extended release(part/cryst) RxNorm: 9780325 1 Tablet(s) PO daily 11/03/2012 11/16/2012 Inactive potassium chloride E R 20 mEq tablet,extended release(part/cryst) RxNorm: 5935119 1 Tablet(s) PO daily 11/03/2012 11/02/2012 Inactive simvastatin 10 mg ta blet RxNorm: 708339 1 Tablet(s) PO daily 11/03/2012 07/30/2013 Inactive simvastatin 10 mg ta blet RxNorm: 879303 1 Tablet(s) PO daily needs labs 10/14/2012 11/02/2012 In active simvastatin 10 mg ta blet RxNorm: 660684 1 Tablet(s) PO daily 09/24/2011 01/21/2012 Inactive Humira subcutaneous RxNorm: 711789 subcutaneous No Start Date Active Vitamin C 1,000 mg t ablet RxNorm: 691428 1 Tablet(s) PO daily No Start Date Active Vitamin B-12 1,000 m cg tablet RxNorm: 202573 1 Tablet(s) PO daily No Start Date Active Probiotic oral RxNorm: 6205 oral No Start Date Active Remicade 100 mg IV S olution RxNorm: 751379 IV every 8 weeks No Start Date 09/05/2015 Inactive Fish Oil 360 mg-1,20 0 mg capsule RxNorm: 497714 1 Capsule(s) PO BID No Start Date 11/03/2017 Inactive prednisone 10 mg tab lets in a dose pack RxNorm: 878472 Tablet(s) PO UD No Start Date 06/21/2015 Inactive 6-5-4-3-2-1 schedule Medication Administered Medication Codes Instruc tions Start Date Status Kenalog 40 mg/mL suspension for injection RxNorm: 5778662 1Milliliter 11/04/2016 N o longer Active Kenalog 40 mg/mL suspension for injection RxNorm: 1524502 Milliliter 06/14/2015 No longer Active Immunizations No Immunization data Assessments Condition Codes Effectiv e Dates Encounter for gynecological examination (general) (routine) without abnormal findings ICD-10: Z01.419 ICD-9: V72.31 11/09/2018 Muscle spasm of back ICD-10: M62.830 ICD-9: 724.8 07/23/2018 Mixed hyperlipidemia ICD-10: E78.2 ICD-9: 272.2 07/23/2018 Dysuria ICD-10: R30.0 ICD-9: 788.1 07/23/2018 Encounter for general adult medical exam [...] Visit Reason For Visit Effective Dates Notes well woman exam (40-65 years) 11/09/2018 flank [...] Observation Code Item Item Code Result Date Culture Urine [id number] URI NE CULTURE SEE NOTES 07/30/2018 Urine Culture Ucult Prel iminary NO Growth Day 1 07/29 Urine Culture Ucult Comp lete Growth of aerobe sent to ref lab 07/29/2018 GC/CHL PRB [id number] CHLM PROBE NEG 06/17/2014 GC/CHL PRB [id number] GC WI OBE NEG 06/17/2014 GC/CHL PRB [id number] CHLM PROBE NEG 07/16/2013 GC/CHL PRB [id number] GC WI OBE NEG 07/16/2013 Review of Systems System Result Effective Dates Constitutional No recent illness 11/09/2018 Constitutional No [...] Result Effective Dates Notes Full Exam - General 1994 Constitutional general [...] Exam - Genitourinary/Female Gen itourinary cervix Inspection: eide l os 06/15/2014 None Full Exam - [...] Date URINALYSIS NONAUTO W /O SCOPE CPT-4: 10650 04/16/2018 URINALYSIS NONAUTO W /O SCOPE CPT-4: 77783 04/13/2018 TRIAMCINOLONE ACET I [place] NOS CPT-4: J3301 11/04/2016 CHLM PROBE (CHYLMD T CODEY DNA AMP PROBE) CPT-4: 58256 09/06/2015 THER/PROPH/DIAG INJ SC/IM CPT-4: 42488 06/14/2015 TRIAMCINOLONE ACET I [place] NOS CPT-4: J3301 06/14/2015 C RAP A SC (STREP A ASSAY W/OPTIC) CPT-4: 36364 11/01/2014 BIOPSY SKIN LESION CPT- 4: 52988 07/26/2014 BIOPSY SKIN ADD-ON CPT- 4: 59197 07/26/2014 PREV VISIT EST AGE 4 0-64 CPT-4: 45100 03/09/2012 Vital Signs Date Vital 11/09/2018 Blood Pressure 1: 130/88 Code: 8480-6 BMI: 22.4 Code: 27384-4 Heart Rate 1: 72 bpm Height: 5'8" SpO2: 98% Weight: 147 lbs 07/23/2018 Blood Pressure 1: 138/82 Code: 8480-6 BMI: 22.8 Code: 41502-5 Heart Rate 1: 82 bpm Height: 5'8" SpO2: 99% Weight: 150 lbs 04/16/2018 Blood Pressure 1: 140/84 Code: 8480-6 BMI: 22.5 Code: 09975-8 Heart Rate 1: 71 bpm Height: 5'8" SpO2: 98% Weight: 148 lbs 11/07/2017 Blood Pressure 1: 132/74 Code: 8480-6 BMI: 23.0 Code: 78316-4 Heart Rate 1: 69 bpm Height: 5'8" SpO2: 99% Weight: 151 lbs 11/04/2016 Heart Rate 1: 99 bpm Height: 5'8" SpO2: 98% Temperature: 37.1 (C) / 98.7 (F) 10/17/2016 Blood Pressure 1: 132/76 Code: 8480-6 BMI: 23.1 Code: 61023-0 Heart Rate 1: 102 bpm Height: 5'8" SpO2: 99% Weight: 152 lbs 09/06/2015 Blood Pressure 1: 138/84 Code: 8480-6 BMI: 22.4 Code: 76685-5 Heart Rate 1: 83 bpm Height: 5'8" SpO2: 96% Weight: 147 lbs 11/01/2014 Blood Pressure 1: 122/84 Code: 8480-6 BMI: 23.0 Code: 28069-8 Heart Rate 1: 92 bpm Height: 5'8" Weight: 151 lbs 07/26/2014 Blood Pressure 1: 118/72 Code: 8480-6 BMI: 22.5 Code: 31087-3 Heart Rate 1: 78 bpm Height: 5'8" Weight: 148 lbs 06/15/2014 Blood Pressure 1: 140/78 Code: 8480-6 BMI: 22.2 Code: 01293-3 Heart Rate 1: 80 bpm Height: 5'8" Weight: 146 lbs 07/15/2013 Blood Pressure 1: 128/76 Code: 8480-6 BMI: 21.9 Code: 51515-9 Heart Rate 1: 80 bpm Height: 5'8" Weight: 144 lbs 03/09/2012 Blood Pressure 1: 122/88 Code: 8480-6 BMI: 21.1 Code: 16226-4 Heart Rate 1: 73 bpm Height: 5'8" SpO2: 98% Weight: 138 lbs 8 oz Functional Status No Functional Status data History of Present Illness Symptom Name Status Resu lt Effective Date Notes Menstrual History regu lar menses 11/09/2018 None [...] None well woman exam (40-65 years) 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 PATIENT, LEVEL IV Diagnosis: Dysuria[ICD10: R30.0] Diagnosis: Muscle spasm of back[ICD10: M62.830] Diagnosis: Mixed hyperlipidemia[ICD10: E78.2] [facility] CPT-4: 11655 07/23/2018 ([id number]) 09288 EST. P ATIENT, LEVEL III Diagnosis: Dysuria[ICD10: R30.0] [facility] CPT-4: 46640 04/16/2018 ([id number]) PREV VISIT E ST AGE 40-64 Diagnosis: Encounter for general adult medical examination with abnormal findings[ICD10: Z00.01] Diagnosis: Other ulcerative colitis without complications[ICD10: K51.80] [facility] CPT-4: 93666 11/07/2017 ([id number]) 34077 EST. P ATIENT, LEVEL III Diagnosis: Cough[ICD10: R05] Diagnosis: Acute bronchitis, unspecified[ICD10: J20.9] [facility] CPT-4: 29403 11/04/2016 ([id number]) PREV VISIT E AGE 40-64 Diagnosis: Encounter for gynecological examination (general) (routine) without abnormal findings[ICD10: Z01.419] [facility] CPT-4: 23540 10/17/2016 ([id number]) 92210 EST. P ATIENT, LEVEL III Diagnosis: ACUTE PHARYNGITIS[ICD9: 462] [facility] CPT- 4: 03329 11/01/2014 ([id number]) PREV VISIT E AGE 40-64 Diagnosis: ROUTINE GYNE EXAM[ICD9: V72.31] Diagnosis: Skin lesion[ICD9: 709.9] [facility] CPT-4: 00320 06/15/2014 ([id number]) PREV VISIT E AGE 40-64 Diagnosis: ROUTINE GYNE EXAM[ICD9: V72.31] [facility] CPT-4: 67989 07/15/2013 Plan of Care Planned Activity Notes C odes Status Date Visit Plan: Well Adult Female - exa [...] or prn. 11/09/2018 Appointment: Do Green WPtel: [address] [place], [place] [id number] Well Woman 11/09/2018 Patient Education: Patient Medication [...] to medications. 07/23/2018 Appointment: Joan Garcia WPtel: [address] [place] [address] (15 min) Moderate 07/23/2018 Patient Education: Patient Medication Summary Completed 07/23/2018 Patient Education: Cholesterol Management Completed 07/23/2018 Visit Plan: Dysuria-bladder pain-UA negative today in the office-recommend patient increase fluids and to let us know if symptoms do not resolve or if any worse -discussed KUB if symptoms persist. Patient verbalized understanding of plan. 04/16/2018 Appointment: Enedelia Blas WPtel: [address] [place] [address] (15 min) Moderate 04/16/2018 Patient Education: Patient [...] GI specialist 11/07/2017 Appointment: Joan Garcia WPtel: [facility] Well Woman 11/07/2017 Patient Education: Patient Medication [...] renal functioning. 10/17/2016 Appointment: Enedelia Blas WPtel: [facility]5 [facility] [place] [address] Well Woman 10/17/2016 Patient Education: Patient Medication [...] x 3 09/06/2015 Appointment: Do Green WPtel: [phone] [facility] Well Woman 09/06/2015 Patient Education: Patient Medication [...] weekend. 07/26/2014 Appointment: Do Green WPtel: [facility] Surgical Procedure 07/26/2014 Patient Education: Patient Medication [...] months. 06/15/2014 Appointment: Do Green WPtel: [facility] Well Woman 06/15/2014 Patient Education: Patient Medication Summary Completed 06/15/2014 Care Plan: Referral Order SNOMED-CT : [id number] Ordered 06/15/2014 Care Plan: PAP Pending 06/15/2014 [...] prn. 07/15/2013 [phone] [facility] 07/15/2013 Patient Education: Patient Medication [...] prn. 03/09/2012 [facility]ment[phone] [facility] [facility] Only 03/09/2012 Patient Education: Patient Medication [...] panel, CBC, and renal functioning. Declined Procedure: (31001) FLU VACC 4 JENNIFER 3 YRS PLUS IM; Declined Reason: Patient Declined Declined Procedure: (35750) FLU VAC NO PRSV 4 JENNIFER 3 [...] functioning. UC - defer to GI specialist Increase fluids prelief otc KUB if symptoms [...]
--- OUTSIDE RECORDS SUMMARY | 2020-04-28 13:16 | XMS REPORT | CCD ---
Author Author Serena Green Organization Do Green MD, [facility] Address [address] [place] [address] Phone Care Team Providers Care Doctor Of Chiropractic Name Role Phone PP Unavailable CCM Unavailable Summary Purpose Interface Exchange Insurance Providers Payer name Policy type / Coverage type Covered alliance party ID Effective Begin Date Effective End Date Blue Cross Blue Shield [facility] e Cross/Blue Shield [id number] Un known Family history Father Diagnosis Age [...] Employment Unknown Curre ntly employed works in [employer] at [employer] in [employer] 03/09/[address]: 247922048 Nonsmoker 03/09/[address]: 718802558 Never drinks alcohol 03/09/2012 Allergies, Adverse Reactions, Alerts Substance Reaction Codes Entered Date Inactivated Date Status biaxin RxNorm: 50264 03/09/2012 No Inactive Date Active Past Medical [...] Fill Instructions Keflex 500 mg capsule RxNorm: 605649 1 Capsule(s) PO TID 07/24/2018 07/30/2018 Inactive cyclobenzaprine 5 mg tablet RxNorm: 717198 1 Tablet(s) PO TID as needed muscle spasms 07/24/2018 07/30/2018 Inactive simvastatin 20 mg ta blet RxNorm: 865881 1 Tablet(s) PO daily 07/23/2018 10/20/2018 Inactive simvastatin 10 mg ta blet RxNorm: 337704 TAKE 1 TABLET BY MOUT H ONCE A DAY 04/09/2018 10/05/2018 In active simvastatin 10 mg ta blet RxNorm: 195988 TAKE 1 TABLET BY MOUT H ONCE A DAY 12/12/2017 03/11/2018 In active simvastatin 10 mg ta blet RxNorm: 432229 Tablet(s) TAKE 1 TABL ET BY MOUTH ONCE A DAY 06/12/2017 12/08/2017 In active simvastatin 10 mg ta blet RxNorm: 000732 Tablet(s) TAKE 1 TABL ET BY MOUTH ONCE A DAY 03/05/2017 04/15/2018 In active cefdinir 300 mg capsule RxNorm: 006198 1 Capsule(s) PO BID 11/08/2016 11/07/2016 Inactive cefdinir 300 mg capsule RxNorm: 269423 1 Capsule(s) PO BID 11/08/2016 11/14/2016 Inactive Kenalog 40 mg/mL cielo pension for injection RxNorm: 6860825 1 Milliliter(s) Inj 11/04/2016 11/04/2016 In active Zithromax Z-Remy 250 mg tablet RxNorm: 943646 1 Tablet(s) PO UD 11/04/2016 11/08/2016 Inactive zpack Phenergan with Codei ne Syrup RxNorm: 5-10 Milliliter(s) PO Q6 PRN 11/04/2016 11/03/2017 Inactive simvastatin 10 mg ta blet RxNorm: 632003 Tablet(s) TAKE 1 TABL ET BY MOUTH ONCE A DAY 08/14/2016 02/09/2017 In active simvastatin 10 mg ta blet RxNorm: 468385 1 Tablet(s) PO daily TAKE 1 TABLET BY MOUTH ONCE A DAY 07/25/2015 08/13/2016 Inactive [SAVINGS FOR UNINSURED ESA ENTS -- BIN:825016, PCN: ASPROD1, Group: [id number], ID# [id number], Process claim through [employer], for questions: . THIS IS NOT INSURANCE.] prednisone 10 mg tab lets in a dose pack RxNorm: 056305 Tablet(s) PO UD 06/22/2015 09/05/2015 In active 6-5-4-3-2-1 schedule Kenalog 40 mg/mL cielo pension for injection RxNorm: 2655554 Milliliter(s) Inj 06/14/2015 06/14/2015 In active amoxicillin 500 mg t ablet RxNorm: 526849 1 Tablet(s) PO TID 11/01/2014 11/10/2014 Inactive Bactrim DS 800 mg-16 0 mg tablet RxNorm: 563214 1 Tablet(s) PO BID 06/28/2014 07/04/2014 Inactive [SAVINGS FOR UNINSURED PATIENTS -- BIN:0 54082, PCN: ASPROD1, Group: [id number], ID# [id number], Process claim through [employer], for questions: . THIS IS NOT INSURANCE.] Bactrim DS 800 mg-16 0 mg tablet RxNorm: 207985 1 Tablet(s) PO BID 06/28/2014 06/27/2014 Inactive simvastatin 10 mg ta blet RxNorm: 319582 1 Tablet(s) PO daily TAKE 1 TABLET BY MOUTH ONCE A DAY 06/23/2014 07/24/2015 Inactive [SAVINGS FOR UNINSURED ESA ENTS -- BIN:040540, PCN: ASPROD1, Group: [id number], ID# [id number], Process claim through [employer], for questions: . THIS IS NOT INSURANCE.] Diflucan 150 mg tablet RxNorm: 892857 1 Tablet(s) PO daily 06/17/2014 06/16/2014 Inactive Diflucan 150 mg tablet RxNorm: 863896 1 Tablet(s) PO daily 06/17/2014 06/23/2014 Inactive [SAVINGS FOR UNINSURED PATIENTS -- BIN:0 56374, PCN: ASPROD1, Group: [id number], ID# [id number], Process claim through [employer], for questions: . THIS IS NOT INSURANCE.] Seasonique 0.15 mg-3 0 mcg (84)/10 mcg(7) tablets,3 month dose pack RxNorm: 383722 1 Tablet(s) PO daily 06/15/2014 09/05/2015 Inactive [SAVINGS FOR UNINSURED ESA ENTS -- BIN:772197, PCN: ASPROD1, Group: [id number], ID# [id number], Process claim through [employer], for questions: . THIS IS NOT INSURANCE.] simvastatin 10 mg ta blet RxNorm: 741590 Tablet(s) PO TAKE 1 T ABLET BY MOUTH ONCE A DAY 10/25/2013 06/22/2014 Inactive potassium chloride E R 20 mEq tablet,extended release(part/cryst) RxNorm: 3375425 1 Tablet(s) PO daily 11/03/2012 11/16/2012 Inactive potassium chloride E R 20 mEq tablet,extended release(part/cryst) RxNorm: 9735724 1 Tablet(s) PO daily 11/03/2012 11/02/2012 Inactive simvastatin 10 mg ta blet RxNorm: 821647 1 Tablet(s) PO daily 11/03/2012 07/30/2013 Inactive simvastatin 10 mg ta blet RxNorm: 010228 1 Tablet(s) PO daily needs labs 10/14/2012 11/02/2012 In active simvastatin 10 mg ta blet RxNorm: 970026 1 Tablet(s) PO daily 09/24/2011 01/21/2012 Inactive Humira subcutaneous RxNorm: 975020 subcutaneous No Start Date Active Vitamin C 1,000 mg t ablet RxNorm: 534520 1 Tablet(s) PO daily No Start Date Active Vitamin B-12 1,000 m cg tablet RxNorm: 232874 1 Tablet(s) PO daily No Start Date Active Probiotic oral RxNorm: 6205 oral No Start Date Active Remicade 100 mg IV S olution RxNorm: 998792 IV every 8 weeks No Start Date 09/05/2015 Inactive Fish Oil 360 mg-1,20 0 mg capsule RxNorm: 904284 1 Capsule(s) PO BID No Start Date 11/03/2017 Inactive prednisone 10 mg tab lets in a dose pack RxNorm: 885054 Tablet(s) PO UD No Start Date 06/21/2015 Inactive 6-5-4-3-2-1 schedule Medication Administered Medication Codes Instruc tions Start Date Status Kenalog 40 mg/mL suspension for injection RxNorm: 3425816 1Milliliter 11/04/2016 N o longer Active Kenalog 40 mg/mL suspension for injection RxNorm: 9134775 Milliliter 06/14/2015 No longer Active Immunizations No [...] Item Item Code Result Date Culture Urine [id number] URI NE CULTURE SEE NOTES 07/30/2018 Urine Culture Ucult Prel iminary NO Growth Day 1 07/29 Urine Culture Ucult Comp lete Growth of aerobe sent to ref lab 07/29/2018 GC/CHL PRB [id number] CHLM PROBE NEG 06/17/2014 GC/CHL PRB [id number] GC IA OBE NEG 06/17/2014 GC/CHL PRB [id number] CHLM PROBE NEG 07/16/2013 GC/CHL PRB [id number] GC IA OBE NEG 07/16/2013 Review of Systems System [...] Date URINALYSIS NONAUTO W /O SCOPE CPT-4: 58845 04/16/2018 URINALYSIS NONAUTO W /O SCOPE CPT-4: 79787 04/13/2018 TRIAMCINOLONE ACET I [place] NOS CPT-4: J3301 11/04/2016 CHLM PROBE (CHYLMD T CODEY DNA AMP PROBE) CPT-4: 60700 09/06/2015 THER/PROPH/DIAG INJ SC/IM CPT-4: 14790 06/14/2015 TRIAMCINOLONE ACET I [place] NOS CPT-4: J3301 06/14/2015 C RAP A SC (STREP A ASSAY W/OPTIC) CPT-4: 73366 11/01/2014 BIOPSY SKIN LESION CPT- 4: 20549 07/26/2014 BIOPSY SKIN ADD-ON CPT- 4: 05051 07/26/2014 PREV VISIT EST AGE 4 0-64 CPT-4: 03467 03/09/2012 Vital Signs Date Vital 11/09/2018 Blood Pressure 1: 130/88 Code: 8480-6 BMI: 22.4 Code: 56574-9 Heart Rate 1: 72 bpm Height: 5'8" SpO2: 98% Weight: 147 lbs 07/23/2018 Blood Pressure 1: 138/82 Code: 8480-6 BMI: 22.8 Code: 63323-8 Heart Rate 1: 82 bpm Height: 5'8" SpO2: 99% Weight: 150 lbs 04/16/2018 Blood Pressure 1: 140/84 Code: 8480-6 BMI: 22.5 Code: 78168-0 Heart Rate 1: 71 bpm Height: 5'8" SpO2: 98% Weight: 148 lbs 11/07/2017 Blood Pressure 1: 132/74 Code: 8480-6 BMI: 23.0 Code: 11394-9 Heart Rate 1: 69 bpm Height: 5'8" SpO2: 99% Weight: 151 lbs 11/04/2016 Heart Rate 1: 99 bpm Height: 5'8" SpO2: 98% Temperature: 37.1 (C) / 98.7 (F) 10/17/2016 Blood Pressure 1: 132/76 Code: 8480-6 BMI: 23.1 Code: 06591-0 Heart Rate 1: 102 bpm Height: 5'8" SpO2: 99% Weight: 152 lbs 09/06/2015 Blood Pressure 1: 138/84 Code: 8480-6 BMI: 22.4 Code: 81467-3 Heart Rate 1: 83 bpm Height: 5'8" SpO2: 96% Weight: 147 lbs 11/01/2014 Blood Pressure 1: 122/84 Code: 8480-6 BMI: 23.0 Code: 11531-2 Heart Rate 1: 92 bpm Height: 5'8" Weight: 151 lbs 07/26/2014 Blood Pressure 1: 118/72 Code: 8480-6 BMI: 22.5 Code: 01730-8 Heart Rate 1: 78 bpm Height: 5'8" Weight: 148 lbs 06/15/2014 Blood Pressure 1: 140/78 Code: 8480-6 BMI: 22.2 Code: 93490-4 Heart Rate 1: 80 bpm Height: 5'8" Weight: 146 lbs 07/15/2013 Blood Pressure 1: 128/76 Code: 8480-6 BMI: 21.9 Code: 80794-9 Heart Rate 1: 80 bpm Height: 5'8" Weight: 144 lbs 03/09/2012 Blood Pressure 1: 122/88 Code: 8480-6 BMI: 21.1 Code: 43558-0 Heart Rate 1: 73 bpm Height: 5'8" [...] None well woman exam (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 PATIENT, LEVEL IV Diagnosis: Dysuria[ICD10: R30.0] Diagnosis: Muscle spasm of back[ICD10: M62.830] Diagnosis: Mixed hyperlipidemia[ICD10: E78.2] [facility] CPT-4: 14521 07/23/2018 ([id number]) 03652 EST. P ATIENT, LEVEL III Diagnosis: Dysuria[ICD10: R30.0] [facility] CPT-4: 86298 04/16/2018 ([id number]) PREV VISIT E ST AGE 40-64 Diagnosis: Encounter for general adult medical examination with abnormal findings[ICD10: Z00.01] Diagnosis: Other ulcerative colitis without complications[ICD10: K51.80] [facility] CPT-4: 27635 11/07/2017 ([id number]) 08356 EST. P ATIENT, LEVEL III Diagnosis: Cough[ICD10: R05] Diagnosis: Acute bronchitis, unspecified[ICD10: J20.9] [facility] CPT-4: 14621 11/04/2016 ([id number]) PREV VISIT E AGE 40-64 Diagnosis: Encounter for gynecological examination (general) (routine) without abnormal findings[ICD10: Z01.419] [facility] CPT-4: 05958 10/17/2016 ([id number]) 64849 EST. P ATIENT, LEVEL III Diagnosis: ACUTE PHARYNGITIS[ICD9: 462] [facility] CPT- 4: 69616 11/01/2014 ([id number]) PREV VISIT E AGE 40-64 Diagnosis: ROUTINE GYNE EXAM[ICD9: V72.31] Diagnosis: Skin lesion[ICD9: 709.9] [facility] CPT-4: 59180 06/15/2014 ([id number]) PREV VISIT E AGE 40-64 Diagnosis: ROUTINE GYNE EXAM[ICD9: V72.31] [facility] CPT-4: 14370 07/15/2013 Plan of Care Planned Activity Notes [...] year, otherwise, RTC yearly or prn. 11/09/2018 Patient Education: Patient Medication Summary Completed 11/09/2018 Care Plan: PAP Pending 11/09/2018 Visit Plan: UTI - pt with [...] to medications. 07/23/2018 Appointment: Joan Garcia WPtel: [facility] (15 min) Moderate 07/23/2018 Patient Education: Patient Medication Summary Completed 07/23/2018 Patient Education: Cholesterol Management Completed 07/23/2018 Visit Plan: Dysuria-bladder pain-UA negative today in the office-recommend patient increase fluids and to let us know if symptoms do not resolve or if any worse -discussed KUB if symptoms persist. Patient verbalized understanding of plan. 04/16/2018 Appointment: Enedelia Blas WPtel: [phone] [place] [address] (15 min) Moderate 04/16/2018 Patient Education: Patient [...] GI specialist 11/07/2017 Appointment: Joan Garcia WPtel: [facility] [facility] 11/07/2017 Patient Education: Patient [...] renal functioning. 10/17/2016 Appointment: Enedelia Blas WPtel: [phone] [phone] [place] [address] [facility] 10/17/2016 Patient Education: Patient Medication [...] x 3 09/06/2015 Appointment: Do Green WPtel: [facility]5 [facility] [facility] 09/06/2015 Patient Education: Patient Medication [...] this weekend. 07/26/2014 Appointment: Do Green WPtel: [address] [place], [place] [phone] Surgical Procedure 07/26/2014 Patient Education: Patient Medication [...] two months. 06/15/2014 Appointment: Do Green WPtel: [address] [place], [place] [phone] [place] [facility] 06/15/2014 Patient Education: Patient Medication Summary Completed 06/15/2014 Care Plan: Referral Order SNOMED-CT : [id number] Ordered 06/15/2014 Care Plan: PAP Pending 06/15/2014 [...] or prn. 07/15/2013 Appointment: Do Green WPtel: [address] [place], [place] [phone] [place] [facility] 07/15/2013 Patient Education: Patient Medication [...] prn. 03/09/2012 Appointment: [phone] [facility] Only 03/09/2012 Patient Education: Patient Medication [...] panel, CBC, and renal functioning. Declined Procedure: (88373) FLU VACC 4 JENNIFER 3 YRS PLUS IM; Declined Reason: Patient Declined Declined Procedure: (20594) FLU VAC NO PRSV 4 JENNIFER 3 [...]
--- OUTSIDE RECORDS SUMMARY | 2020-04-28 13:16 | XMS REPORT | CCD ---
Author Author Serena Green Organization Do Green MD, [facility] Address [address] [place] [address] Phone Care Team Providers Care Gta Name Role Phone PP Unavailable CCM Unavailable Summary Purpose Interface Exchange Insurance Providers Payer name Policy type / Coverage type Covered alliance party ID Effective Begin Date Effective End Date Blue Cross Blue Shield [facility] e Cross/Blue Shield [id number] Un known Family history Father Diagnosis Age [...] Employment Unknown Curre ntly employed works in [employer] 03/09/[address]: 676799614 Nonsmoker 03/09/[address]: 745509834 Never drinks alcohol 03/09/2012 Allergies, Adverse Reactions, Alerts Substance Reaction Codes Entered Date Inactivated Date Status biaxin RxNorm: 02534 03/09/2012 No Inactive Date Active Past Medical History Illness Codes Condition Status Onset Date Resolved Date Dysuria ICD-9: 788.1 ICD-10: R30.0 Active 04/13/2018 [...] ICD-9: 786.2 ICD-10: R05 Active 11/04/2016 Unknown Encounter for gyneco logical examination (general) (routine) without abnormal findings ICD-9: V72.31 ICD-10: Z01.419 Active 10/16/2016 Unknown Poison philip ICD-9: 692.6 Active 06/13/2015 Unknow n ACUTE PHARYNGITIS ICD-9: 462 Active 11/01/2014 Unknown Dysplastic nevus of trunk ICD-9: 216.5 Active 07/07 Unknown ROUTINE GYNE EXAM ICD-9: V72.31 Active 06/15/2014 Unknown Skin lesion ICD-9: 709.9 Active 06/15/2014 Unknow n Hyperlipidemia Unknown Active 03/09/2012 Unknow n Ulcerative colitis Unknown Active 03/09/2012 Unknown Problems Condition Codes Effectiv e Dates Condition Status Dysuria ICD-9: 788.1 ICD-10: R30.0 04/13/2018 Active [...] Cough ICD-9: 786.2 ICD-10: R05 11/04/2016 Active Encounter for gyneco logical examination (general) (routine) without abnormal findings ICD-9: V72.31 ICD-10: Z01.419 10/16/2016 Active Poison philip ICD-9: 692.6 06/13/2015 Active ACUTE PHARYNGITIS ICD-9: 462 11/01/2014 Active Dysplastic nevus of trunk ICD-9: 216.5 07/26/2014 Active ROUTINE GYNE EXAM ICD-9: V72.31 06/15/2014 Active Skin lesion ICD-9: 709.9 06/15/2014 Active Hyperlipidemia Unknown 03/09/2012 Active Ulcerative colitis Unknown 03/09/2012 Active Medications Medication Codes Instruc tions Start Date Stop Date Sta tus Fill Instructions Keflex 500 mg capsule RxNorm: 964696 1 Capsule(s) PO TID 07/24/2018 07/30/2018 Inactive cyclobenzaprine 5 mg tablet RxNorm: 848468 1 Tablet(s) PO TID as needed muscle spasms 07/24/2018 07/30/2018 Inactive simvastatin 20 mg ta blet RxNorm: 501154 1 Tablet(s) PO daily 07/23/2018 10/20/2018 Active simvastatin 10 mg ta blet RxNorm: 486690 TAKE 1 TABLET BY MOUT H ONCE A DAY 04/09/2018 10/05/2018 Ac tive simvastatin 10 mg ta blet RxNorm: 105697 TAKE 1 TABLET BY MOUT H ONCE A DAY 12/12/2017 03/11/2018 In active simvastatin 10 mg ta blet RxNorm: 206931 Tablet(s) TAKE 1 TABL ET BY MOUTH ONCE A DAY 06/12/2017 12/08/2017 In active simvastatin 10 mg ta blet RxNorm: 893636 Tablet(s) TAKE 1 TABL ET BY MOUTH ONCE A DAY 03/05/2017 04/15/2018 In active cefdinir 300 mg capsule RxNorm: 303108 1 Capsule(s) PO BID 11/08/2016 11/07/2016 Inactive cefdinir 300 mg capsule RxNorm: 324403 1 Capsule(s) PO BID 11/08/2016 11/14/2016 Inactive Kenalog 40 mg/mL cielo pension for injection RxNorm: 2495875 1 Milliliter(s) Inj 11/04/2016 11/04/2016 In active Zithromax Z-Remy 250 mg tablet RxNorm: 139843 1 Tablet(s) PO UD 11/04/2016 11/08/2016 Inactive zpack Phenergan with Codei ne Syrup RxNorm: 5-10 Milliliter(s) PO Q6 PRN 11/04/2016 11/03/2017 Inactive simvastatin 10 mg ta blet RxNorm: 920933 Tablet(s) TAKE 1 TABL ET BY MOUTH ONCE A DAY 08/14/2016 02/09/2017 In active simvastatin 10 mg ta blet RxNorm: 903107 1 Tablet(s) PO daily TAKE 1 TABLET BY MOUTH ONCE A DAY 07/25/2015 08/13/2016 Inactive [SAVINGS FOR UNINSURED ESA ENTS -- BIN:[id number], PCN: ASPROD1, Group: [id number], ID# [id number], Process claim through [employer], for questions: . THIS IS NOT INSURANCE.] prednisone 10 mg tab lets in a dose pack RxNorm: 747240 Tablet(s) PO UD 06/22/2015 09/05/2015 In active 6-5-4-3-2-1 schedule Kenalog 40 mg/mL cielo pension for injection RxNorm: 2420178 Milliliter(s) Inj 06/14/2015 06/14/2015 In active amoxicillin 500 mg t ablet RxNorm: 221127 1 Tablet(s) PO TID 11/01/2014 11/10/2014 Inactive Bactrim DS 800 mg-16 0 mg tablet RxNorm: 650503 1 Tablet(s) PO BID 06/28/2014 07/04/2014 Inactive [SAVINGS FOR UNINSURED PATIENTS -- BIN:0 83278, PCN: ASPROD1, Group: [id number], ID# [id number], Process claim through [employer], for questions: . THIS IS NOT INSURANCE.] Bactrim DS 800 mg-16 0 mg tablet RxNorm: 910104 1 Tablet(s) PO BID 06/28/2014 06/27/2014 Inactive simvastatin 10 mg ta blet RxNorm: 296934 1 Tablet(s) PO daily TAKE 1 TABLET BY MOUTH ONCE A DAY 06/23/2014 07/24/2015 Inactive [SAVINGS FOR UNINSURED ESA ENTS -- BIN:760479, PCN: ASPROD1, Group: [id number], ID# [id number], Process claim through [employer], for questions: . THIS IS NOT INSURANCE.] Diflucan 150 mg tablet RxNorm: 090614 1 Tablet(s) PO daily 06/17/2014 06/16/2014 Inactive Diflucan 150 mg tablet RxNorm: 001237 1 Tablet(s) PO daily 06/17/2014 06/23/2014 Inactive [SAVINGS FOR UNINSURED PATIENTS -- BIN:0 87659, PCN: ASPROD1, Group: [id number], ID# [id number], Process claim through [employer], for questions: . THIS IS NOT INSURANCE.] Seasonique 0.15 mg-3 0 mcg (84)/10 mcg(7) tablets,3 month dose pack RxNorm: 092160 1 Tablet(s) PO daily 06/15/2014 09/05/2015 Inactive [SAVINGS FOR UNINSURED ESA ENTS -- BIN:576676, PCN: ASPROD1, Group: [id number], ID# [id number], Process claim through [employer], for questions: . THIS IS NOT INSURANCE.] simvastatin 10 mg ta blet RxNorm: 571993 Tablet(s) PO TAKE 1 T ABLET BY MOUTH ONCE A DAY 10/25/2013 06/22/2014 Inactive potassium chloride E R 20 mEq tablet,extended release(part/cryst) RxNorm: 5881947 1 Tablet(s) PO daily 11/03/2012 11/16/2012 Inactive potassium chloride E R 20 mEq tablet,extended release(part/cryst) RxNorm: 7150908 1 Tablet(s) PO daily 11/03/2012 11/02/2012 Inactive simvastatin 10 mg ta blet RxNorm: 923758 1 Tablet(s) PO daily 11/03/2012 07/30/2013 Inactive simvastatin 10 mg ta blet RxNorm: 508497 1 Tablet(s) PO daily needs labs 10/14/2012 11/02/2012 In active simvastatin 10 mg ta blet RxNorm: 382723 1 Tablet(s) PO daily 09/24/2011 01/21/2012 Inactive Humira subcutaneous RxNorm: 143517 subcutaneous No Start Date Active Vitamin C 1,000 mg t ablet RxNorm: 240570 1 Tablet(s) PO daily No Start Date Active Vitamin B-12 1,000 m cg tablet RxNorm: 264870 1 Tablet(s) PO daily No Start Date Active Probiotic oral RxNorm: 6205 oral No Start Date Active Remicade 100 mg IV S olution RxNorm: 107056 IV every 8 weeks No Start Date 09/05/2015 Inactive Fish Oil 360 mg-1,20 0 mg capsule RxNorm: 694076 1 Capsule(s) PO BID No Start Date 11/03/2017 Inactive prednisone 10 mg tab lets in a dose pack RxNorm: 003261 Tablet(s) PO UD No Start Date 06/21/2015 Inactive 6-5-4-3-2-1 schedule Medication Administered Medication Codes Instruc tions Start Date Status Kenalog 40 mg/mL suspension for injection RxNorm: 7505404 1Milliliter 11/04/2016 N o longer Active Kenalog 40 mg/mL suspension for injection RxNorm: 5395849 Milliliter 06/14/2015 No longer Active Immunizations No Immunization data Assessments Condition Codes Effectiv e Dates Muscle spasm of back ICD-10: M62.830 ICD-9: 724.8 07/23/2018 Mixed hyperlipidemia ICD-10: E78.2 ICD-9: 272.2 07/23/2018 Dysuria ICD-10: R30.0 ICD-9: 788.1 07/23/2018 Encounter for general adult medical exam ination with abnormal findings ICD-10: Z00.01 ICD-9: V70.0 11/07/2017 Other ulcerative colitis without complications ICD-10: K51.80 ICD-9: 556.8 11/07/2017 Acute bronchitis, unspecified ICD-10 : J20.9 ICD-9: 466.0 11/04/2016 Cough ICD-10: R05 ICD-9: 786.2 11/04/2016 Encounter for gynecological examination (general) (routine) without abnormal findings ICD-10: Z01.419 ICD-9: V72.31 10/17/2016 Poison philip ICD-9: 692.6 06/14/2015 ACUTE PHARYNGITIS ICD-9: 462 11/01/2014 Skin lesion ICD-9: 709.9 07/26/2014 Dysplastic nevus of trunk ICD-9: 216.5 07/26/2014 ROUTINE GYNE EXAM ICD-9: V72.31 06/15/2014 Reason For Visit Reason For Visit Effective Dates Notes flank pain 07/23/2018 flank pain 04/16/2018 well [...] Item Item Code Result Date Culture Urine [id number] URI NE CULTURE SEE NOTES 07/30/2018 Urine Culture Ucult Prel iminary NO Growth Day 1 07/29 Urine Culture Ucult Comp lete Growth of aerobe sent to ref lab 07/29/2018 GC/CHL PRB [id number] CHLM PROBE NEG 06/17/2014 GC/CHL PRB [id number] GC CA OBE NEG 06/17/2014 GC/CHL PRB [id number] CHLM PROBE NEG 07/16/2013 GC/CHL PRB [id number] GC CA OBE NEG 07/16/2013 Review of Systems System Result Effective Dates Eyes No eye discharge Eyes No eye [...] Date URINALYSIS NONAUTO W /O SCOPE CPT-4: 39492 04/16/2018 URINALYSIS NONAUTO W /O SCOPE CPT-4: 69142 04/13/2018 TRIAMCINOLONE ACET I [place] NOS CPT-4: J3301 11/04/2016 CHLM PROBE (CHYLMD T CODEY DNA AMP PROBE) CPT-4: 88463 09/06/2015 THER/PROPH/DIAG INJ SC/IM CPT-4: 43913 06/14/2015 TRIAMCINOLONE ACET I [place] NOS CPT-4: J3301 06/14/2015 C RAP A SC (STREP A ASSAY W/OPTIC) CPT-4: 94263 11/01/2014 BIOPSY SKIN LESION CPT- 4: 22586 07/26/2014 BIOPSY SKIN ADD-ON CPT- 4: 52065 07/26/2014 PREV VISIT EST AGE 4 0-64 CPT-4: 40781 03/09/2012 Vital Signs Date Vital 07/23/2018 Blood Pressure 1: 138/82 Code: 8480-6 BMI: 22.8 Code: 24224-6 Heart Rate 1: 82 bpm Height: 5'8" SpO2: 99% Weight: 150 lbs 04/16/2018 Blood Pressure 1: 140/84 Code: 8480-6 BMI: 22.5 Code: 04055-6 Heart Rate 1: 71 bpm Height: 5'8" SpO2: 98% Weight: 148 lbs 11/07/2017 Blood Pressure 1: 132/74 Code: 8480-6 BMI: 23.0 Code: 96475-9 Heart Rate 1: 69 bpm Height: 5'8" SpO2: 99% Weight: 151 lbs 11/04/2016 Heart Rate 1: 99 bpm Height: 5'8" SpO2: 98% Temperature: 37.1 (C) / 98.7 (F) 10/17/2016 Blood Pressure 1: 132/76 Code: 8480-6 BMI: 23.1 Code: 71949-5 Heart Rate 1: 102 bpm Height: 5'8" SpO2: 99% Weight: 152 lbs 09/06/2015 Blood Pressure 1: 138/84 Code: 8480-6 BMI: 22.4 Code: 50343-1 Heart Rate 1: 83 bpm Height: 5'8" SpO2: 96% Weight: 147 lbs 11/01/2014 Blood Pressure 1: 122/84 Code: 8480-6 BMI: 23.0 Code: 04631-0 Heart Rate 1: 92 bpm Height: 5'8" Weight: 151 lbs 07/26/2014 Blood Pressure 1: 118/72 Code: 8480-6 BMI: 22.5 Code: 80059-5 Heart Rate 1: 78 bpm Height: 5'8" Weight: 148 lbs 06/15/2014 Blood Pressure 1: 140/78 Code: 8480-6 BMI: 22.2 Code: 65087-0 Heart Rate 1: 80 bpm Height: 5'8" Weight: 146 lbs 07/15/2013 Blood Pressure 1: 128/76 Code: 8480-6 BMI: 21.9 Code: 74864-6 Heart Rate 1: 80 bpm Height: 5'8" Weight: 144 lbs 03/09/2012 Blood Pressure 1: 122/88 Code: 8480-6 BMI: 21.1 Code: 25568-0 Heart Rate 1: 73 bpm Height: 5'8" SpO2: 98% Weight: 138 lbs 8 oz Functional Status No Functional Status data History of Present Illness Symptom Name Status Resu lt Effective Date Notes flank pain Location on t he right [...] one week ago cough Location in the roat 11/04/2016 None cough Quality acute 11/04/2016 [...] None well woman exam (40-65 years) Breast /Inspector Weights And Measures Complaints perimenopausal symptoms 03/09/2012 None well woman [...] Encounters Encounter Performer Loca tion Codes Date 38724 EST. PATIENT, LEVEL IV Diagnosis: Dysuria[ICD10: R30.0] Diagnosis: Muscle spasm of back[ICD10: M62.830] Diagnosis: Mixed hyperlipidemia[ICD10: E78.2] Joan Green MD, [facility] CPT-4: 20383 07/23/2018 ([id number]) 26183 EST. P ATIENT, LEVEL III Diagnosis: Dysuria[ICD10: R30.0] Enedelia Grene MD, [facility] CPT-4: 01486 04/16/2018 ([id number]) PREV VISIT E AGE 40-64 Diagnosis: Encounter for general adult medical examination with abnormal findings[ICD10: Z00.01] Diagnosis: Other ulcerative colitis without complications[ICD10: K51.80] Joan Green MD, [facility] CPT-4: 12735 11/07/2017 ([id number]) 11775 EST. P ATIENT, LEVEL III Diagnosis: Cough[ICD10: R05] Diagnosis: Acute bronchitis, unspecified[ICD10: J20.9] Enedelia Green MD, [facility] CPT-4: 49989 11/04/2016 ([id number]) PREV VISIT E AGE 40-64 Diagnosis: Encounter for gynecological examination (general) (routine) without abnormal findings[ICD10: Z01.419] Enedelia Green MD, [facility] CPT-4: 09744 10/17/2016 ([id number]) 11371 EST. P ATIENT, LEVEL III Diagnosis: ACUTE PHARYNGITIS[ICD9: 462] [facility] CPT- 4: 19514 11/01/2014 ([id number]) PREV VISIT E AGE 40-64 Diagnosis: ROUTINE GYNE EXAM[ICD9: V72.31] Diagnosis: Skin lesion[ICD9: 709.9] [facility] CPT-4: 16230 06/15/2014 ([id number]) PREV VISIT E AGE 40-64 Diagnosis: ROUTINE GYNE EXAM[ICD9: V72.31] [facility] CPT-4: 01458 07/15/2013 Plan of Care Planned Activity Notes C odes Status Date Visit Plan: UTI - pt with positive [...] to medications. 07/23/2018 Appointment: Joan Garcia [facility]el[facility] [address] [facility] (15 min) Moderate 07/23/2018 Patient Education: Patient Medication Summary Completed 07/23/2018 Patient Education: Cholesterol Management Completed 07/23/2018 Visit Plan: Dysuria-bladder pain-UA negative today in the office-recommend patient increase fluids and to let us know if symptoms do not resolve or if any worse -discussed KUB if symptoms persist. Patient verbalized understanding of plan. 04/16/2018 Appointment: Enedelia Blas WPtel: [facility] [address] [facility] [place] [address] (15 min) Moderate 04/16/2018 Patient Education: Patient [...] GI specialist 11/07/2017 Appointment: Joan Garcia WPtel: [facility] [address] [facility] 11/07/2017 Patient Education: Patient Medication [...] renal functioning. 10/17/2016 Appointment: Enedelia Blas WPtel: [facility] [address] [facility] [place] [address] [facility] 10/17/2016 Patient Education: Patient Medication [...] x 3 09/06/2015 Appointment: Do Green WPtel: [facility] [address] [facility] 09/06/2015 Patient Education: Patient Medication [...] this weekend. 07/26/2014 Appointment: Do Green WPtel[facility] [address] [facility] [facility] 07/26/2014 Patient Education: Patient Medication [...] two months. 06/15/2014 Appointment: Do Green WPtel: [phone] [facility] [place] [facility] 06/15/2014 Patient Education: Patient Medication Summary Completed 06/15/2014 Care Plan: Referral Order SNOMED-CT : [id number] Ordered 06/15/2014 Care Plan: PAP Pending 06/15/2014 [...] prn. 07/15/2013 Appointment: Do Green WPtel: [phone] [facility] [facility] 07/15/2013 Patient Education: Patient Medication [...] prn. 03/09/2012 Appointment: Do Green [facility]Ptel[facility] Pap Only 03/09/2012 Patient Education: Patient Medication [...] panel, CBC, and renal functioning. Declined Procedure: (45963) FLU VACC 4 JENNIFER 3 YRS PLUS IM; Declined Reason: Patient Declined Declined Procedure: (69881) FLU VAC NO PRSV 4 JENNIFER 3 [...] participation in planned 5K this weekend. . Pharyngitis-Discus sed natural and expected course [...]
--- OUTSIDE RECORDS SUMMARY | 2020-04-28 13:17 | XMS REPORT | CCD ---
Author Author Serena Green Organization Do Green MD, [facility] Address [address] [place] [address] Phone Care Team Providers Care Glass Fitter Name Role Phone PP Unavailable CCM Unavailable Summary Purpose Interface Exchange Insurance Providers Payer name Policy type / Coverage type Covered green party ID Effective Begin Date Effective End Date Blue Cross Blue Shield [facility] e Cross/Blue Shield [id number] Un known Family history Father Diagnosis Age [...] Employment Unknown Curre ntly employed works in [employer] at [employer] in [employer] 03/09/[address]: 499499761 Nonsmoker 03/09/[address]: 608587531 Never drinks alcohol 03/09/2012 Allergies, Adverse Reactions, Alerts Substance Reaction Codes Entered Date Inactivated Date Status biaxin RxNorm: 05060 03/09/2012 No Inactive Date Active Past Medical [...] Fill Instructions Keflex 500 mg capsule RxNorm: 046353 1 Capsule(s) PO TID 07/24/2018 07/30/2018 Active cyclobenzaprine 5 mg tablet RxNorm: 115344 1 Tablet(s) PO TID as needed muscle spasms 07/24/2018 07/30/2018 Ac tive simvastatin 20 mg ta blet RxNorm: 782830 1 Tablet(s) PO daily 07/23/2018 10/20/2018 Active simvastatin 10 mg ta blet RxNorm: 416399 TAKE 1 TABLET BY MOUT H ONCE A DAY 04/09/2018 10/05/2018 Ac tive simvastatin 10 mg ta blet RxNorm: 405058 TAKE 1 TABLET BY MOUT H ONCE A DAY 12/12/2017 03/11/2018 In active simvastatin 10 mg ta blet RxNorm: 382840 Tablet(s) TAKE 1 TABL ET BY MOUTH ONCE A DAY 06/12/2017 12/08/2017 In active simvastatin 10 mg ta blet RxNorm: 533023 Tablet(s) TAKE 1 TABL ET BY MOUTH ONCE A DAY 03/05/2017 04/15/2018 In active cefdinir 300 mg capsule RxNorm: 526055 1 Capsule(s) PO BID 11/08/2016 11/07/2016 Inactive cefdinir 300 mg capsule RxNorm: 665305 1 Capsule(s) PO BID 11/08/2016 11/14/2016 Inactive Kenalog 40 mg/mL cielo pension for injection RxNorm: 7202881 1 Milliliter(s) Inj 11/04/2016 11/04/2016 In active Zithromax Z-Remy 250 mg tablet RxNorm: 175439 1 Tablet(s) PO UD 11/04/2016 11/08/2016 Inactive zpack Phenergan with Codei ne Syrup RxNorm: 5-10 Milliliter(s) PO Q6 PRN 11/04/2016 11/03/2017 Inactive simvastatin 10 mg ta blet RxNorm: 280322 Tablet(s) TAKE 1 TABL ET BY MOUTH ONCE A DAY 08/14/2016 02/09/2017 In active simvastatin 10 mg ta blet RxNorm: 819259 1 Tablet(s) PO daily TAKE 1 TABLET BY MOUTH ONCE A DAY 07/25/2015 08/13/2016 Inactive [SAVINGS FOR UNINSURED ESA ENTS -- BIN:[id number], PCN: [id number], Group: [id number], ID# [id number], Process claim through [employer], for questions: . THIS IS NOT INSURANCE.] prednisone 10 mg tab lets in a dose pack RxNorm: 858329 Tablet(s) PO UD 06/22/2015 09/05/2015 In active 6-5-4-3-2-1 schedule Kenalog 40 mg/mL cielo pension for injection RxNorm: 0791951 Milliliter(s) Inj 06/14/2015 06/14/2015 In active amoxicillin 500 mg t ablet RxNorm: 590261 1 Tablet(s) PO TID 11/01/2014 11/10/2014 Inactive Bactrim DS 800 mg-16 0 mg tablet RxNorm: 235555 1 Tablet(s) PO BID 06/28/2014 07/04/2014 Inactive [SAVINGS FOR UNINSURED PATIENTS -- BIN:0 91550, PCN: ASPROD1, Group: [id number], ID# [id number], Process claim through [employer], for questions: . THIS IS NOT INSURANCE.] Bactrim DS 800 mg-16 0 mg tablet RxNorm: 714888 1 Tablet(s) PO BID 06/28/2014 06/27/2014 Inactive simvastatin 10 mg ta blet RxNorm: 076569 1 Tablet(s) PO daily TAKE 1 TABLET BY MOUTH ONCE A DAY 06/23/2014 07/24/2015 Inactive [SAVINGS FOR UNINSURED ESA ENTS -- BIN:293462, PCN: ASPROD1, Group: [id number], ID# [id number], Process claim through Log[employer], for questions: . THIS IS NOT INSURANCE.] Diflucan 150 mg tablet RxNorm: 732384 1 Tablet(s) PO daily 06/17/2014 06/16/2014 Inactive Diflucan 150 mg tablet RxNorm: 283214 1 Tablet(s) PO daily 06/17/2014 06/23/2014 Inactive [SAVINGS FOR UNINSURED PATIENTS -- BIN:0 11631, PCN: ASPROD1, Group: [id number], ID# [id number], Process claim through Log[employer], for questions: . THIS IS NOT INSURANCE.] Seasonique 0.15 mg-3 0 mcg (84)/10 mcg(7) tablets,3 month dose pack RxNorm: 503714 1 Tablet(s) PO daily 06/15/2014 09/05/2015 Inactive [SAVINGS FOR UNINSURED ESA ENTS -- BIN:693192, PCN: ASPROD1, Group: [id number], ID# [id number], Process claim through Logical Apps, for questions: . THIS IS NOT INSURANCE.] simvastatin 10 mg ta blet RxNorm: 876685 Tablet(s) PO TAKE 1 T ABLET BY MOUTH ONCE A DAY 10/25/2013 06/22/2014 Inactive potassium chloride E R 20 mEq tablet,extended release(part/cryst) RxNorm: 7623730 1 Tablet(s) PO daily 11/03/2012 11/16/2012 Inactive potassium chloride E R 20 mEq tablet,extended release(part/cryst) RxNorm: 9167109 1 Tablet(s) PO daily 11/03/2012 11/02/2012 Inactive simvastatin 10 mg ta blet RxNorm: 471635 1 Tablet(s) PO daily 11/03/2012 07/30/2013 Inactive simvastatin 10 mg ta blet RxNorm: 500288 1 Tablet(s) PO daily needs labs 10/14/2012 11/02/2012 In active simvastatin 10 mg ta blet RxNorm: 232699 1 Tablet(s) PO daily 09/24/2011 01/21/2012 Inactive Humira subcutaneous RxNorm: 864914 subcutaneous No Start Date Active Vitamin C 1,000 mg t ablet RxNorm: 893239 1 Tablet(s) PO daily No Start Date Active Vitamin B-12 1,000 m cg tablet RxNorm: 078735 1 Tablet(s) PO daily No Start Date Active Probiotic oral RxNorm: 6205 oral No Start Date Active Remicade 100 mg IV S olution RxNorm: 431493 IV every 8 weeks No Start Date 09/05/2015 Inactive Fish Oil 360 mg-1,20 0 mg capsule RxNorm: 902723 1 Capsule(s) PO BID No Start Date 11/03/2017 Inactive prednisone 10 mg tab lets in a dose pack RxNorm: 297204 Tablet(s) PO UD No Start Date 06/21/2015 Inactive 6-5-4-3-2-1 schedule Medication Administered Medication Codes Instruc tions Start Date Status Kenalog 40 mg/mL suspension for injection RxNorm: 5396096 1Milliliter 11/04/2016 N o longer Active Kenalog 40 mg/mL suspension for injection RxNorm: 7730699 Milliliter 06/14/2015 No longer Active Immunizations No [...] Observation Code Item Item Code Result Date GC/CHL PRB 5973964 CHLM PROBE NEG 06/17/2014 GC/CHL PRB 1135544 GC OK OBE NEG 06/17/2014 GC/CHL PRB 8091109 CHLM PROBE NEG 07/16/2013 GC/CHL PRB 8537911 GC OK OBE NEG 07/16/2013 Review of [...] Date URINALYSIS NONAUTO W /O SCOPE CPT-4: 07366 04/16/2018 URINALYSIS NONAUTO W /O SCOPE CPT-4: 57656 04/13/2018 TRIAMCINOLONE ACET I [place] NOS CPT-4: J3301 11/04/2016 CHLM PROBE (CHYLMD T CODEY DNA AMP PROBE) CPT-4: 03967 09/06/2015 THER/PROPH/DIAG INJ SC/IM CPT-4: 36197 06/14/2015 TRIAMCINOLONE ACET I NJ NOS CPT-4: J3301 06/14/2015 C RAP A SC (STREP A ASSAY W/OPTIC) CPT-4: 47495 11/01/2014 BIOPSY SKIN LESION CPT- 4: 88914 07/26/2014 BIOPSY SKIN ADD-ON CPT- 4: 64340 07/26/2014 PREV VISIT EST AGE 4 0-64 CPT-4: 89026 03/09/2012 Vital Signs Date Vital 07/23/2018 Blood Pressure 1: 138/82 Code: 8480-6 BMI: 22.8 Code: 84465-0 Heart Rate 1: 82 bpm Height: 5'8" SpO2: 99% Weight: 150 lbs 04/16/2018 Blood Pressure 1: 140/84 Code: 8480-6 BMI: 22.5 Code: 11683-1 Heart Rate 1: 71 bpm Height: 5'8" SpO2: 98% Weight: 148 lbs 11/07/2017 Blood Pressure 1: 132/74 Code: 8480-6 BMI: 23.0 Code: 08783-2 Heart Rate 1: 69 bpm Height: 5'8" SpO2: 99% Weight: 151 lbs 11/04/2016 Heart Rate 1: 99 bpm Height: 5'8" SpO2: 98% Temperature: 37.1 (C) / 98.7 (F) 10/17/2016 Blood Pressure 1: 132/76 Code: 8480-6 BMI: 23.1 Code: 65016-1 Heart Rate 1: 102 bpm Height: 5'8" SpO2: 99% Weight: 152 lbs 09/06/2015 Blood Pressure 1: 138/84 Code: 8480-6 BMI: 22.4 Code: 72461-8 Heart Rate 1: 83 bpm Height: 5'8" SpO2: 96% Weight: 147 lbs 11/01/2014 Blood Pressure 1: 122/84 Code: 8480-6 BMI: 23.0 Code: 16856-7 Heart Rate 1: 92 bpm Height: 5'8" Weight: 151 lbs 07/26/2014 Blood Pressure 1: 118/72 Code: 8480-6 BMI: 22.5 Code: 32720-8 Heart Rate 1: 78 bpm Height: 5'8" Weight: 148 lbs 06/15/2014 Blood Pressure 1: 140/78 Code: 8480-6 BMI: 22.2 Code: 59539-7 Heart Rate 1: 80 bpm Height: 5'8" Weight: 146 lbs 07/15/2013 Blood Pressure 1: 128/76 Code: 8480-6 BMI: 21.9 Code: 85979-2 Heart Rate 1: 80 bpm Height: 5'8" Weight: 144 lbs 03/09/2012 Blood Pressure 1: 122/88 Code: 8480-6 BMI: 21.1 Code: 23000-4 Heart Rate 1: 73 bpm Height: 5'8" [...] None well woman exam (40-65 years) 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 PATIENT, LEVEL IV Diagnosis: Dysuria[ICD10: R30.0] Diagnosis: Muscle spasm of back[ICD10: M62.830] Diagnosis: Mixed hyperlipidemia[ICD10: E78.2] [facility] CPT-4: 02718 07/23/2018 ([id number]) 94206 EST. P ATIENT, LEVEL III Diagnosis: Dysuria[ICD10: R30.0] [facility]edelia [facility] CPT-4: 38493 04/16/2018 ([id number]) PREV VISIT E AGE 40-64 Diagnosis: Encounter for general adult medical examination with abnormal findings[ICD10: Z00.01] Diagnosis: Other ulcerative colitis without complications[ICD10: K51.80] [facility] CPT-4: 60655 11/07/2017 ([id number]) 29046 EST. P ATIENT, LEVEL III Diagnosis: Cough[ICD10: R05] Diagnosis: Acute bronchitis, unspecified[ICD10: J20.9] [facility] CPT-4: 08211 11/04/2016 ([id number]) PREV VISIT E AGE 40-64 Diagnosis: Encounter for gynecological examination (general) (routine) without abnormal findings[ICD10: Z01.419] [facility] CPT-4: 93594 10/17/2016 ([id number]) 29284 EST. P ATIENT, LEVEL III Diagnosis: ACUTE PHARYNGITIS[ICD9: 462] [facility] CPT- 4: 21853 11/01/2014 ([id number]) PREV VISIT E AGE 40-64 Diagnosis: ROUTINE GYNE EXAM[ICD9: V72.31] Diagnosis: Skin lesion[ICD9: 709.9] [facility] CPT-4: 73023 06/15/2014 ([id number]) PREV VISIT E AGE 40-64 Diagnosis: ROUTINE GYNE EXAM[ICD9: V72.31] [facility] CPT-4: 79883 07/15/2013 Plan of Care Planned Activity Notes [...] to medications. 07/23/2018 Appointment: Joan Garcia WPtel: [facility] (15 min) Moderate 07/23/2018 Patient Education: Patient Medication Summary Completed 07/23/2018 Patient Education: Cholesterol Management Completed 07/23/2018 Care Plan: Urine Culture Pending 07/23/2018 Visit Plan: Dysuria-bladder pain-UA negative today in the office-recommend patient increase fluids and to let us know if symptoms do not resolve or if any worse -discussed KUB if symptoms persist. Patient verbalized understanding of plan. 04/16/2018 Appointment: Enedelia Blas WPtel: [facility] [address] (15 min) Moderate 04/16/2018 Patient Education: Patient [...] specialist 11/07/2017 Appointment: Joan Garcia WPtel: [address] [facility] Woman 11/07/2017 Patient Education: Patient [...] panel, CBC, and renal functioning. 10/17/2016 Appointment: Endeelia Blas WPtel: [phone] [facility] [place] [address] Well Woman 10/17/2016 Patient Education: Patient Medication [...] 3 09/06/2015 Appointment: Do Green WPtel: [phone] [facility] [facility] 09/06/2015 Patient Education: Patient [...] this weekend. 07/26/2014 Appointment: Do Green WPtel: [facility]5 [facility] Surgical Procedure 07/26/2014 Patient Education: Patient [...] two months. 06/15/2014 Appointment: Do Green WPtel: [phone] [facility] [facility] 06/15/2014 Patient Education: Patient Medication Summary Completed 06/15/2014 Care Plan: Referral Order SNOMED-CT : [id number] Ordered 06/15/2014 Care Plan: PAP Pending 06/15/2014 [...] prn. 07/15/2013 Appointment: Do Green WPtel: [phone] [facility] [facility] 07/15/2013 Patient Education: Patient Medication [...] prn. 03/09/2012 [facility]ment: [phone] [facility] Only 03/09/2012 Patient Education: [...] panel, CBC, and renal functioning. Declined Procedure: (87219) FLU VACC 4 JENNIFER 3 YRS PLUS IM; Declined Reason: Patient Declined Declined Procedure: (12475) FLU VAC NO PRSV 4 JENNIFER 3 [...]
--- OUTSIDE RECORDS SUMMARY | 2020-04-28 13:18 | XMS REPORT | CCD ---
Author Author Serena Green Organization Do Green MD, [facility] Address [address] [place] [address] Phone Care Team Providers Care Histology Specialist Name Role Phone PP Unavailable CCM Unavailable Summary Purpose Interface Exchange Insurance Providers Payer name Policy type / Coverage type Covered constitution party ID Effective Begin Date Effective End Date Blue Cross Blue [facility] e Cross/Blue Shield [id number] Un known Family history Father Diagnosis Age [...] Employment Unknown Curre ntly employed works in [employer] at [employer] in [place] 03/09/[address]: 948926371 Nonsmoker 03/09/[address]: 814294156 Never drinks alcohol 03/09/2012 Allergies, Adverse Reactions, Alerts Allergies, Adverse Reactions, Alerts data not found Past Medical History Illness Codes Condition Status Onset Date Resolved Date Encounter for genera l adult medical examination [...] Effectiv e Dates Condition Status Encounter for genera l adult medical examination [...] Stop Date Sta tus Fill Instructions simvastatin 10 mg ta blet RxNorm: 229539 Tablet(s) TAKE 1 TABL ET BY MOUTH ONCE A DAY 06/12/2017 12/08/2017 Ac tive simvastatin 10 mg ta blet RxNorm: 034740 Tablet(s) TAKE 1 TABL ET BY MOUTH ONCE A DAY 03/05/2017 06/02/2017 In active cefdinir 300 mg capsule RxNorm: 273346 1 Capsule(s) PO BID 11/08/2016 11/07/2016 Inactive cefdinir 300 mg capsule RxNorm: 223371 1 Capsule(s) PO BID 11/08/2016 11/14/2016 Inactive Kenalog 40 mg/mL cielo pension for injection RxNorm: 2601028 1 Milliliter(s) Inj 11/04/2016 11/04/2016 In active Zithromax Z-Remy 250 mg tablet RxNorm: 280089 1 Tablet(s) PO UD 11/04/2016 11/08/2016 Inactive zpack Phenergan with Codei ne Syrup RxNorm: 5-10 Milliliter(s) PO Q6 PRN 11/04/2016 11/03/2017 Inactive simvastatin 10 mg ta blet RxNorm: 604209 Tablet(s) TAKE 1 TABL ET BY MOUTH ONCE A DAY 08/14/2016 02/09/2017 In active simvastatin 10 mg ta blet RxNorm: 963852 1 Tablet(s) PO daily TAKE 1 TABLET BY MOUTH ONCE A DAY 07/25/2015 08/13/2016 Inactive [SAVINGS FOR UNINSURED ESA ENTS -- BIN:714984, PCN: ASPROD1, Group: [id number], ID# [id number], Process claim through [employer], for questions: . THIS IS NOT INSURANCE.] prednisone 10 mg tab lets in a dose pack RxNorm: 266456 Tablet(s) PO UD 06/22/2015 09/05/2015 In active 6-5-4-3-2-1 schedule Kenalog 40 mg/mL cielo pension for injection RxNorm: 0369952 Milliliter(s) Inj 06/14/2015 06/14/2015 In active amoxicillin 500 mg t ablet RxNorm: 119978 1 Tablet(s) PO TID 11/01/2014 11/10/2014 Inactive Bactrim DS 800 mg-16 0 mg tablet RxNorm: 437578 1 Tablet(s) PO BID 06/28/2014 07/04/2014 Inactive [SAVINGS FOR UNINSURED PATIENTS -- BIN:0 23625, PCN: ASPROD1, Group: [id number], ID# [id number], Process claim through [employer], for questions: . THIS IS NOT INSURANCE.] Bactrim DS 800 mg-16 0 mg tablet RxNorm: 173592 1 Tablet(s) PO BID 06/28/2014 06/27/2014 Inactive simvastatin 10 mg ta blet RxNorm: 695938 1 Tablet(s) PO daily TAKE 1 TABLET BY MOUTH ONCE A DAY 06/23/2014 07/24/2015 Inactive [SAVINGS FOR UNINSURED ESA ENTS -- BIN:726267, PCN: ASPROD1, Group: [id number], ID# [id number], Process claim through [employer], for questions: . THIS IS NOT INSURANCE.] Diflucan 150 mg tablet RxNorm: 469852 1 Tablet(s) PO daily 06/17/2014 06/16/2014 Inactive Diflucan 150 mg tablet RxNorm: 380659 1 Tablet(s) PO daily 06/17/2014 06/23/2014 Inactive [SAVINGS FOR UNINSURED PATIENTS -- BIN:0 73856, PCN: ASPROD1, Group: [id number], ID# [id number], Process claim through [employer], for questions: . THIS IS NOT INSURANCE.] Seasonique 0.15 mg-3 0 mcg (84)/10 mcg(7) tablets,3 month dose pack RxNorm: 458063 1 Tablet(s) PO daily 06/15/2014 09/05/2015 Inactive [SAVINGS FOR UNINSURED ESA ENTS -- BIN:783638, PCN: ASPROD1, Group: [id number], ID# [id number], Process claim through [employer], for questions: . THIS IS NOT INSURANCE.] simvastatin 10 mg ta blet RxNorm: 555967 Tablet(s) PO TAKE 1 T ABLET BY MOUTH ONCE A DAY 10/25/2013 06/22/2014 Inactive potassium chloride E R 20 mEq tablet,extended release(part/cryst) RxNorm: 5583566 1 Tablet(s) PO daily 11/03/2012 11/16/2012 Inactive potassium chloride E R 20 mEq tablet,extended release(part/cryst) RxNorm: 0118940 1 Tablet(s) PO daily 11/03/2012 11/02/2012 Inactive simvastatin 10 mg ta blet RxNorm: 455693 1 Tablet(s) PO daily 11/03/2012 07/30/2013 Inactive simvastatin 10 mg ta blet RxNorm: 003605 1 Tablet(s) PO daily needs labs 10/14/2012 11/02/2012 In active simvastatin 10 mg ta blet RxNorm: 383951 1 Tablet(s) PO daily 09/24/2011 01/21/2012 Inactive Humira subcutaneous RxNorm: 275532 subcutaneous No Start Date Active Vitamin C 1,000 mg t ablet RxNorm: 586090 1 Tablet(s) PO daily No Start Date Active Vitamin B-12 1,000 m cg tablet RxNorm: 053505 1 Tablet(s) PO daily No Start Date Active Probiotic oral RxNorm: 6205 oral No Start Date Active Remicade 100 mg IV S olution RxNorm: 728063 IV every 8 weeks No Start Date 09/05/2015 Inactive Fish Oil 360 mg-1,20 0 mg capsule RxNorm: 861963 1 Capsule(s) PO BID No Start Date 11/03/2017 Inactive prednisone 10 mg tab lets in a dose pack RxNorm: 570023 Tablet(s) PO UD No Start Date 06/21/2015 Inactive 6-5-4-3-2-1 schedule Medication Administered Medication Codes Instruc tions Start Date Status Kenalog 40 mg/mL suspension for injection RxNorm: 8607799 1Milliliter 11/04/2016 N o longer Active Kenalog 40 mg/mL suspension for injection RxNorm: 9170416 Milliliter 06/14/2015 No longer Active Immunizations No Immunization data Assessments Condition Codes Effectiv e Dates Encounter for general adult medical exam ination [...] Dates Notes well woman exam (40-65 years) 11/07/2017 chest tightness 11/04/2016 well woman exam (40-65 years) 10/17/2016 well woman exam (40-65 years) 09/06/2015 sore throat 11/01/2014 office procedure 07/26/2014 dark areas on back well woman exam (40-65 years) 06/15/2014 well woman exam (40-65 years) 07/15/2013 well woman exam (40-65 years) 03/09/2012 Results Observation Observation Code Item Item Code Result Date GC/CHL PRB 8089017 CHLM PROBE NEG 06/17/2014 GC/CHL PRB 7291667 GC [place] OBE NEG 06/17/2014 GC/CHL PRB 6778557 CHLM PROBE NEG 07/16/2013 GC/CHL PRB 1784541 GC [place] OBE NEG 07/16/2013 Review of Systems System Result Effective Dates Constitutional No recent illness 11/07/2017 Constitutional No [...] time 03/09/2012 None Procedures Procedure Codes Date TRIAMCINOLONE ACET I [place] NOS CPT-4: J3301 11/04/2016 CHLM PROBE (CHYLMD T CODEY DNA AMP PROBE) CPT-4: 53286 09/06/2015 THER/PROPH/DIAG INJ SC/IM CPT-4: 45497 06/14/2015 TRIAMCINOLONE ACET I [place] NOS CPT-4: J3301 06/14/2015 C RAP A SC (STREP A ASSAY W/OPTIC) CPT-4: 19074 11/01/2014 BIOPSY SKIN LESION CPT- 4: 52705 07/26/2014 BIOPSY SKIN ADD-ON CPT- 4: 23947 07/26/2014 PREV VISIT EST AGE 4 0-64 CPT-4: 67002 03/09/2012 Vital Signs Date Vital 11/07/2017 Blood Pressure 1: 132/74 Code: 8480-6 BMI: 23.0 Code: 62553-9 Heart Rate 1: 69 bpm Height: 5'8" SpO2: 99% Weight: 151 lbs 11/04/2016 Heart Rate 1: 99 bpm Height: 5'8" SpO2: 98% Temperature: 37.1 (C) / 98.7 (F) 10/17/2016 Blood Pressure 1: 132/76 Code: 8480-6 BMI: 23.1 Code: 49010-0 Heart Rate 1: 102 bpm Height: 5'8" SpO2: 99% Weight: 152 lbs 09/06/2015 Blood Pressure 1: 138/84 Code: 8480-6 BMI: 22.4 Code: 92633-2 Heart Rate 1: 83 bpm Height: 5'8" SpO2: 96% Weight: 147 lbs 11/01/2014 Blood Pressure 1: 122/84 Code: 8480-6 BMI: 23.0 Code: 86146-1 Heart Rate 1: 92 bpm Height: 5'8" Weight: 151 lbs 07/26/2014 Blood Pressure 1: 118/72 Code: 8480-6 BMI: 22.5 Code: 87964-4 Heart Rate 1: 78 bpm Height: 5'8" Weight: 148 lbs 06/15/2014 Blood Pressure 1: 140/78 Code: 8480-6 BMI: 22.2 Code: 14094-9 Heart Rate 1: 80 bpm Height: 5'8" Weight: 146 lbs 07/15/2013 Blood Pressure 1: 128/76 Code: 8480-6 BMI: 21.9 Code: 67539-6 Heart Rate 1: 80 bpm Height: 5'8" Weight: 144 lbs 03/09/2012 Blood Pressure 1: 122/88 Code: 8480-6 BMI: 21.1 Code: 53762-1 Heart Rate 1: 73 bpm Height: 5'8" SpO2: 98% Weight: 138 lbs 8 oz Functional Status No Functional Status data History of Present Illness Symptom Name Status Resu lt Effective Date Notes well woman exam (40-65 years) Pap Smear [...] None well woman exam (40-65 years) 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 P ATIENT, LEVEL III Diagnosis: Cough[ICD10: R05] Diagnosis: Acute bronchitis, unspecified[ICD10: J20.9] [facility] CPT-4: 83828 11/04/2016 ([id number]) PREV VISIT E AGE 40-64 Diagnosis: Encounter for gynecological examination (general) (routine) without abnormal findings[ICD10: Z01.419] [facility] CPT-4: 01442 10/17/2016 ([id number]) 00490 EST. P ATIENT, LEVEL III Diagnosis: ACUTE PHARYNGITIS[ICD9: 462] [facility] CPT- 4: 58061 11/01/2014 ([id number]) PREV VISIT E AGE 40-64 Diagnosis: ROUTINE GYNE EXAM[ICD9: V72.31] Diagnosis: Skin lesion[ICD9: 709.9] [facility] CPT-4: 49370 06/15/2014 ([id number]) PREV VISIT E AGE 40-64 Diagnosis: ROUTINE GYNE EXAM[ICD9: V72.31] [facility] CPT-4: 04108 07/15/2013 Plan of Care Planned Activity Notes C odes Status Date Visit Plan: Well Adult - pt was [...] UC - defer to GI specialist 11/07/2017 Patient Education: Patient Medication Summary Completed [...] functioning. 10/17/2016 Appointment: Enedelia Blas WPtel: 101[address] [facility] Woman 10/17/2016 Patient Education: Patient [...] x 3 09/06/2015 Appointment: Do Green WPtel: 1010 [facility] [facility] Woman 09/06/2015 Patient Education: Patient [...] this weekend. 07/26/2014 Appointment: Do Green WPtel: [facility] [facility] 07/26/2014 Patient Education: Patient Medication [...] two months. 06/15/2014 Appointment: Do Green WPtel: [facility]5 [facility] [facility] Woman 06/15/2014 Patient Education: Patient Medication Summary Completed 06/15/2014 Care Plan: Referral Order SNOMED-CT : [id number] Ordered 06/15/2014 Care Plan: PAP Pending 06/15/2014 [...] prn. 07/15/2013 Appointment: Do Green [facility]Ptel[facility] [facility] 07/15/2013 Patient Education: [...] prn. 03/09/2012 Appointment: Do Green [facility] Pap Only 03/09/2012 Patient Education: Patient Medication Summary Completed 03/09/2012 Referral: Riley Roy MD WPtel: Referral Initiated Instructions Comment RECOMMEND MAMMOGRAM PELVIC EXAM NEXT YEAR -PAP [...] panel, CBC, and renal functioning. Declined Procedure: (57323) FLU VACC 4 JENNIFER 3 YRS PLUS IM; Declined Reason: Patient Declined Declined Procedure: (16694) FLU VAC NO PRSV 4 JENNIFER 3 [...] UC - defer to GI specialist . Well Adult Female - exam completed. Pap and gc/chlamydia and breast exam completed. Pt will be called with results of her testing. She was advised to continue with yearly annual exams. Safe sex practices discussed during office visit today. Call if any abnormal gynecologic issues during the next year, otherwise, RTC yearly or prn.
--- OUTSIDE RECORDS SUMMARY | 2020-04-28 13:18 | XMS REPORT | CCD ---
Author Author Serena Green Organization Do Green MD, [facility] Address [address] [place] [address] Phone Care Team Providers Care Pulmonologist Intensivist Name Role Phone PP Unavailable CCM Unavailable Summary Purpose Interface Exchange Insurance Providers Payer name Policy type / Coverage type Covered constitution party ID Effective Begin Date Effective End Date Blue Cross Blue Shield [facility] e Cross/Blue Shield [id number] Un known Family history Father Diagnosis Age [...] Employment Unknown Curre ntly employed works in [employer] at [employer] in [employer] 03/09/[address]: 978193178 Nonsmoker 03/09/[address]: 926187384 Never drinks alcohol 03/09/2012 Allergies, Adverse Reactions, Alerts Substance Reaction Codes Entered Date Inactivated Date Status biaxin RxNorm: 73542 03/09/2012 No Inactive Date Active Past Medical [...] Fill Instructions Keflex 500 mg capsule RxNorm: 304212 1 Capsule(s) PO TID 07/24/2018 07/30/2018 Active cyclobenzaprine 5 mg tablet RxNorm: 841797 1 Tablet(s) PO TID as needed muscle spasms 07/24/2018 07/30/2018 Ac tive simvastatin 20 mg ta blet RxNorm: 832857 1 Tablet(s) PO daily 07/23/2018 10/20/2018 Active simvastatin 10 mg ta blet RxNorm: 286597 TAKE 1 TABLET BY MOUT H ONCE A DAY 04/09/2018 10/05/2018 Ac tive simvastatin 10 mg ta blet RxNorm: 815317 TAKE 1 TABLET BY MOUT H ONCE A DAY 12/12/2017 03/11/2018 In active simvastatin 10 mg ta blet RxNorm: 946162 Tablet(s) TAKE 1 TABL ET BY MOUTH ONCE A DAY 06/12/2017 12/08/2017 In active simvastatin 10 mg ta blet RxNorm: 233004 Tablet(s) TAKE 1 TABL ET BY MOUTH ONCE A DAY 03/05/2017 04/15/2018 In active cefdinir 300 mg capsule RxNorm: 094324 1 Capsule(s) PO BID 11/08/2016 11/07/2016 Inactive cefdinir 300 mg capsule RxNorm: 914405 1 Capsule(s) PO BID 11/08/2016 11/14/2016 Inactive Kenalog 40 mg/mL cielo pension for injection RxNorm: 1074044 1 Milliliter(s) Inj 11/04/2016 11/04/2016 In active Zithromax Z-Remy 250 mg tablet RxNorm: 516169 1 Tablet(s) PO UD 11/04/2016 11/08/2016 Inactive zpack Phenergan with Codei ne Syrup RxNorm: 5-10 Milliliter(s) PO Q6 PRN 11/04/2016 11/03/2017 Inactive simvastatin 10 mg ta blet RxNorm: 698619 Tablet(s) TAKE 1 TABL ET BY MOUTH ONCE A DAY 08/14/2016 02/09/2017 In active simvastatin 10 mg ta blet RxNorm: 358169 1 Tablet(s) PO daily TAKE 1 TABLET BY MOUTH ONCE A DAY 07/25/2015 08/13/2016 Inactive [SAVINGS FOR UNINSURED ESA ENTS -- BIN:632464, PCN: [id number], Group: [id number], ID# [id number], Process claim through [employer], for questions: . THIS IS NOT INSURANCE.] prednisone 10 mg tab lets in a dose pack RxNorm: 519158 Tablet(s) PO UD 06/22/2015 09/05/2015 In active 6-5-4-3-2-1 schedule Kenalog 40 mg/mL cielo pension for injection RxNorm: 6259105 Milliliter(s) Inj 06/14/2015 06/14/2015 In active amoxicillin 500 mg t ablet RxNorm: 002570 1 Tablet(s) PO TID 11/01/2014 11/10/2014 Inactive Bactrim DS 800 mg-16 0 mg tablet RxNorm: 142865 1 Tablet(s) PO BID 06/28/2014 07/04/2014 Inactive [SAVINGS FOR UNINSURED PATIENTS -- BIN:0 02916, PCN: ASPROD1, Group: [id number], ID# [id number], Process claim through [employer], for questions: . THIS IS NOT INSURANCE.] Bactrim DS 800 mg-16 0 mg tablet RxNorm: 392404 1 Tablet(s) PO BID 06/28/2014 06/27/2014 Inactive simvastatin 10 mg ta blet RxNorm: 799038 1 Tablet(s) PO daily TAKE 1 TABLET BY MOUTH ONCE A DAY 06/23/2014 07/24/2015 Inactive [SAVINGS FOR UNINSURED ESA ENTS -- BIN:451327, PCN: ASPROD1, Group: [id number], ID# [id number], Process claim through [employer], for questions: . THIS IS NOT INSURANCE.] Diflucan 150 mg tablet RxNorm: 509701 1 Tablet(s) PO daily 06/17/2014 06/16/2014 Inactive Diflucan 150 mg tablet RxNorm: 277045 1 Tablet(s) PO daily 06/17/2014 06/23/2014 Inactive [SAVINGS FOR UNINSURED PATIENTS -- BIN:0 77031, PCN: ASPROD1, Group: [id number], ID# [id number], Process claim through [employer], for questions: . THIS IS NOT INSURANCE.] Seasonique 0.15 mg-3 0 mcg (84)/10 mcg(7) tablets,3 month dose pack RxNorm: 918635 1 Tablet(s) PO daily 06/15/2014 09/05/2015 Inactive [SAVINGS FOR UNINSURED ESA ENTS -- BIN:094930, PCN: ASPROD1, Group: [id number], ID# [id number], Process claim through [employer], for questions: . THIS IS NOT INSURANCE.] simvastatin 10 mg ta blet RxNorm: 763104 Tablet(s) PO TAKE 1 T ABLET BY MOUTH ONCE A DAY 10/25/2013 06/22/2014 Inactive potassium chloride E R 20 mEq tablet,extended release(part/cryst) RxNorm: 8592052 1 Tablet(s) PO daily 11/03/2012 11/16/2012 Inactive potassium chloride E R 20 mEq tablet,extended release(part/cryst) RxNorm: 2244019 1 Tablet(s) PO daily 11/03/2012 11/02/2012 Inactive simvastatin 10 mg ta blet RxNorm: 287579 1 Tablet(s) PO daily 11/03/2012 07/30/2013 Inactive simvastatin 10 mg ta blet RxNorm: 820134 1 Tablet(s) PO daily needs labs 10/14/2012 11/02/2012 In active simvastatin 10 mg ta blet RxNorm: 793835 1 Tablet(s) PO daily 09/24/2011 01/21/2012 Inactive Humira subcutaneous RxNorm: 427709 subcutaneous No Start Date Active Vitamin C 1,000 mg t ablet RxNorm: 390997 1 Tablet(s) PO daily No Start Date Active Vitamin B-12 1,000 m cg tablet RxNorm: 026469 1 Tablet(s) PO daily No Start Date Active Probiotic oral RxNorm: 6205 oral No Start Date Active Remicade 100 mg IV S olution RxNorm: 198907 IV every 8 weeks No Start Date 09/05/2015 Inactive Fish Oil 360 mg-1,20 0 mg capsule RxNorm: 037342 1 Capsule(s) PO BID No Start Date 11/03/2017 Inactive prednisone 10 mg tab lets in a dose pack RxNorm: 222633 Tablet(s) PO UD No Start Date 06/21/2015 Inactive 6-5-4-3-2-1 schedule Medication Administered Medication Codes Instruc tions Start Date Status Kenalog 40 mg/mL suspension for injection RxNorm: 3265928 1Milliliter 11/04/2016 N o longer Active Kenalog 40 mg/mL suspension for injection RxNorm: 4524937 Milliliter 06/14/2015 No longer Active Immunizations No [...] Item Item Code Result Date GC/CHL PRB 2054376 CHLM PROBE NEG 06/17/2014 GC/CHL PRB 6367344 GC OR OBE NEG 06/17/2014 GC/CHL PRB 2587025 CHLM PROBE NEG 07/16/2013 GC/CHL PRB 5653636 GC OR OBE NEG 07/16/2013 Review of Systems System [...] Date URINALYSIS NONAUTO W /O SCOPE CPT-4: 93210 04/16/2018 URINALYSIS NONAUTO W /O SCOPE CPT-4: 29497 04/13/2018 TRIAMCINOLONE ACET I [place] NOS CPT-4: J3301 11/04/2016 CHLM PROBE (CHYLMD T CODEY DNA AMP PROBE) CPT-4: 41121 09/06/2015 THER/PROPH/DIAG INJ SC/IM CPT-4: 25662 06/14/2015 TRIAMCINOLONE ACET I [place] NOS CPT-4: J3301 06/14/2015 C RAP A SC (STREP A ASSAY W/OPTIC) CPT-4: 55436 11/01/2014 BIOPSY SKIN LESION CPT- 4: 02414 07/26/2014 BIOPSY SKIN ADD-ON CPT- 4: 31186 07/26/2014 PREV VISIT EST AGE 4 0-64 CPT-4: 16020 03/09/2012 Vital Signs Date Vital 07/23/2018 Blood Pressure 1: 138/82 Code: 8480-6 BMI: 22.8 Code: 21472-1 Heart Rate 1: 82 bpm Height: 5'8" SpO2: 99% Weight: 150 lbs 04/16/2018 Blood Pressure 1: 140/84 Code: 8480-6 BMI: 22.5 Code: 39802-4 Heart Rate 1: 71 bpm Height: 5'8" SpO2: 98% Weight: 148 lbs 11/07/2017 Blood Pressure 1: 132/74 Code: 8480-6 BMI: 23.0 Code: 65366-0 Heart Rate 1: 69 bpm Height: 5'8" SpO2: 99% Weight: 151 lbs 11/04/2016 Heart Rate 1: 99 bpm Height: 5'8" SpO2: 98% Temperature: 37.1 (C) / 98.7 (F) 10/17/2016 Blood Pressure 1: 132/76 Code: 8480-6 BMI: 23.1 Code: 45944-6 Heart Rate 1: 102 bpm Height: 5'8" SpO2: 99% Weight: 152 lbs 09/06/2015 Blood Pressure 1: 138/84 Code: 8480-6 BMI: 22.4 Code: 13586-9 Heart Rate 1: 83 bpm Height: 5'8" SpO2: 96% Weight: 147 lbs 11/01/2014 Blood Pressure 1: 122/84 Code: 8480-6 BMI: 23.0 Code: 03334-2 Heart Rate 1: 92 bpm Height: 5'8" Weight: 151 lbs 07/26/2014 Blood Pressure 1: 118/72 Code: 8480-6 BMI: 22.5 Code: 22249-5 Heart Rate 1: 78 bpm Height: 5'8" Weight: 148 lbs 06/15/2014 Blood Pressure 1: 140/78 Code: 8480-6 BMI: 22.2 Code: 35258-5 Heart Rate 1: 80 bpm Height: 5'8" Weight: 146 lbs 07/15/2013 Blood Pressure 1: 128/76 Code: 8480-6 BMI: 21.9 Code: 38538-3 Heart Rate 1: 80 bpm Height: 5'8" Weight: 144 lbs 03/09/2012 Blood Pressure 1: 122/88 Code: 8480-6 BMI: 21.1 Code: 57172-4 Heart Rate 1: 73 bpm Height: 5'8" [...] None well woman exam (40-65 years) 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 PATIENT, LEVEL IV Diagnosis: Dysuria[ICD10: R30.0] Diagnosis: Muscle spasm of back[ICD10: M62.830] Diagnosis: Mixed hyperlipidemia[ICD10: E78.2] [facility] CPT-4: 33597 07/23/2018 ([id number]) 20130 EST. P ATIENT, LEVEL III Diagnosis: Dysuria[ICD10: R30.0] [facility] CPT-4: 01006 04/16/2018 ([id number]) PREV VISIT E AGE 40-64 Diagnosis: Encounter for general adult medical examination with abnormal findings[ICD10: Z00.01] Diagnosis: Other ulcerative colitis without complications[ICD10: K51.80] [facility] CPT-4: 59899 11/07/2017 ([id number]) 73053 EST. P ATIENT, LEVEL III Diagnosis: Cough[ICD10: R05] Diagnosis: Acute bronchitis, unspecified[ICD10: J20.9] [facility] CPT-4: 97443 11/04/2016 ([id number]) PREV VISIT E AGE 40-64 Diagnosis: Encounter for gynecological examination (general) (routine) without abnormal findings[ICD10: Z01.419] [facility] CPT-4: 32392 10/17/2016 ([id number]) 84578 EST. P ATIENT, LEVEL III Diagnosis: ACUTE PHARYNGITIS[ICD9: 462] [facility] CPT- 4: 92205 11/01/2014 ([id number]) PREV VISIT E AGE 40-64 Diagnosis: ROUTINE GYNE EXAM[ICD9: V72.31] Diagnosis: Skin lesion[ICD9: 709.9] [facility] CPT-4: 94119 06/15/2014 ([id number]) PREV VISIT E AGE 40-64 Diagnosis: ROUTINE GYNE EXAM[ICD9: V72.31] [facility] CPT-4: 75797 07/15/2013 Plan of Care Planned Activity Notes [...] to medications. 07/23/2018 Appointment: Joan Garcia WPtel: [facility] (15 min) Moderate 07/23/2018 Patient Education: [...] of plan. 04/16/2018 Appointment: Enedelia Blas WPtel: [facility] (15 min) Moderate 04/16/2018 Patient Education: [...] specialist 11/07/2017 Appointment: Joan Garcia WPtel: [address] Well Woman 11/07/2017 Patient Education: Patient [...] functioning. 10/17/2016 Appointment: Enedelia Blas WPtel: [address] [facility] [place] [address] Well Woman 10/17/2016 Patient Education: Patient Medication [...] 3 09/06/2015 Appointment: Do Green WPtel: [phone] [facility] Well Woman 09/06/2015 Patient Education: Patient Medication [...] weekend. 07/26/2014 Appointment: Do Green WPtel: [facility]5 [facility] Surgical Procedure 07/26/2014 Patient Education: Patient Medication [...] two months. 06/15/2014 Appointment: Do Green WPtel: [phone] [facility] Well Woman 06/15/2014 Patient Education: Patient Medication Summary Completed 06/15/2014 Care Plan: Referral Order SNOMED-CT : [id number] Ordered 06/15/2014 Care Plan: PAP Pending 06/15/2014 [...] prn. 07/15/2013 Appointment: Do Green WPtel: [phone] [facility] Well Woman 07/15/2013 Patient Education: Patient Medication [...] prn. 03/09/2012 App[facility]ment: [facility] [facility] Only 03/09/2012 Patient Education: [...] panel, CBC, and renal functioning. Declined Procedure: (26430) FLU VACC 4 JENNIFER 3 YRS PLUS IM; Declined Reason: Patient Declined Declined Procedure: (92966) FLU VAC NO PRSV 4 JENNIFER 3 [...]
--- OUTSIDE RECORDS SUMMARY | 2020-04-28 13:19 | XMS REPORT | CCD ---
Author Author Serena Green Organization Do Green MD, [facility] Address [address] [place] [address] Phone Care Team Providers Care Personal Care Aid Name Role Phone PP Unavailable CCM Unavailable Summary Purpose Interface Exchange Insurance Providers Payer name Policy type / Coverage type Covered republican ID Effective Begin Date Effective End Date Blue Cross Blue [facility] e Cross/Blue Shield [id number] Un known Family history Father Diagnosis Age [...] Employment Unknown Curre ntly employed works in [employer] in [employer] 03/09/[address]: 383292188 Nonsmoker 03/09/[address]: 770900707 Never drinks alcohol 03/09/2012 Allergies, Adverse Reactions, [...] Instructions simvastatin 10 mg ta blet RxNorm: 553743 Tablet(s) TAKE 1 TABL ET BY MOUTH ONCE A DAY 06/12/2017 12/08/2017 Ac tive simvastatin 10 mg ta blet RxNorm: 926710 Tablet(s) TAKE 1 TABL ET BY MOUTH ONCE A DAY 03/05/2017 06/02/2017 In active cefdinir 300 mg capsule RxNorm: 640495 1 Capsule(s) PO BID 11/08/2016 11/07/2016 Inactive cefdinir 300 mg capsule RxNorm: 146107 1 Capsule(s) PO BID 11/08/2016 11/14/2016 Inactive Kenalog 40 mg/mL cielo pension for injection RxNorm: 6291409 1 Milliliter(s) Inj 11/04/2016 11/04/2016 In active Zithromax Z-Remy 250 mg tablet RxNorm: 548445 1 Tablet(s) PO UD 11/04/2016 11/08/2016 Inactive zpack Phenergan with Codei ne Syrup RxNorm: 5-10 Milliliter(s) PO Q6 PRN 11/04/2016 11/03/2017 Inactive simvastatin 10 mg ta blet RxNorm: 857035 Tablet(s) TAKE 1 TABL ET BY MOUTH ONCE A DAY 08/14/2016 02/09/2017 In active simvastatin 10 mg ta blet RxNorm: 920519 1 Tablet(s) PO daily TAKE 1 TABLET BY MOUTH ONCE A DAY 07/25/2015 08/13/2016 Inactive [SAVINGS FOR UNINSURED ESA ENTS -- BIN:577411, PCN: ASPROD1, Group: [id number], ID# [id number], Process claim through [employer], for questions: . THIS IS NOT INSURANCE.] prednisone 10 mg tab lets in a dose pack RxNorm: 491548 Tablet(s) PO UD 06/22/2015 09/05/2015 In active 6-5-4-3-2-1 schedule Kenalog 40 mg/mL cielo pension for injection RxNorm: 6362752 Milliliter(s) Inj 06/14/2015 06/14/2015 In active amoxicillin 500 mg t ablet RxNorm: 718450 1 Tablet(s) PO TID 11/01/2014 11/10/2014 Inactive Bactrim DS 800 mg-16 0 mg tablet RxNorm: 643254 1 Tablet(s) PO BID 06/28/2014 07/04/2014 Inactive [SAVINGS FOR UNINSURED PATIENTS -- BIN:0 37808, PCN: ASPROD1, Group: [id number], ID# [id number], Process claim through [employer], for questions: . THIS IS NOT INSURANCE.] Bactrim DS 800 mg-16 0 mg tablet RxNorm: 722694 1 Tablet(s) PO BID 06/28/2014 06/27/2014 Inactive simvastatin 10 mg ta blet RxNorm: 372145 1 Tablet(s) PO daily TAKE 1 TABLET BY MOUTH ONCE A DAY 06/23/2014 07/24/2015 Inactive [SAVINGS FOR UNINSURED ESA ENTS -- BIN:552383, PCN: ASPROD1, Group: [id number], ID# [id number], Process claim through [employer], for questions: . THIS IS NOT INSURANCE.] Diflucan 150 mg tablet RxNorm: 017404 1 Tablet(s) PO daily 06/17/2014 06/16/2014 Inactive Diflucan 150 mg tablet RxNorm: 382244 1 Tablet(s) PO daily 06/17/2014 06/23/2014 Inactive [SAVINGS FOR UNINSURED PATIENTS -- BIN:0 47778, PCN: ASPROD1, Group: [id number], ID# [id number], Process claim through [employer], for questions: . THIS IS NOT INSURANCE.] Seasonique 0.15 mg-3 0 mcg (84)/10 mcg(7) tablets,3 month dose pack RxNorm: 468338 1 Tablet(s) PO daily 06/15/2014 09/05/2015 Inactive [SAVINGS FOR UNINSURED ESA ENTS -- BIN:691564, PCN: ASPROD1, Group: [id number], ID# [id number], Process claim through [employer], for questions: . THIS IS NOT INSURANCE.] simvastatin 10 mg ta blet RxNorm: 581073 Tablet(s) PO TAKE 1 T ABLET BY MOUTH ONCE A DAY 10/25/2013 06/22/2014 Inactive potassium chloride E R 20 mEq tablet,extended release(part/cryst) RxNorm: 9614325 1 Tablet(s) PO daily 11/03/2012 11/16/2012 Inactive potassium chloride E R 20 mEq tablet,extended release(part/cryst) RxNorm: 5476946 1 Tablet(s) PO daily 11/03/2012 11/02/2012 Inactive simvastatin 10 mg ta blet RxNorm: 752752 1 Tablet(s) PO daily 11/03/2012 07/30/2013 Inactive simvastatin 10 mg ta blet RxNorm: 582305 1 Tablet(s) PO daily needs labs 10/14/2012 11/02/2012 In active simvastatin 10 mg ta blet RxNorm: 267930 1 Tablet(s) PO daily 09/24/2011 01/21/2012 Inactive Humira subcutaneous RxNorm: 119236 subcutaneous No Start Date Active Vitamin C 1,000 mg t ablet RxNorm: 435966 1 Tablet(s) PO daily No Start Date Active Vitamin B-12 1,000 m cg tablet RxNorm: 946299 1 Tablet(s) PO daily No Start Date Active Probiotic oral RxNorm: 6205 oral No Start Date Active Remicade 100 mg IV S olution RxNorm: 764525 IV every 8 weeks No Start Date 09/05/2015 Inactive Fish Oil 360 mg-1,20 0 mg capsule RxNorm: 731267 1 Capsule(s) PO BID No Start Date 11/03/2017 Inactive prednisone 10 mg tab lets in a dose pack RxNorm: 724069 Tablet(s) PO UD No Start Date 06/21/2015 Inactive 6-5-4-3-2-1 schedule Medication Administered Medication Codes Instruc tions Start Date Status Kenalog 40 mg/mL suspension for injection RxNorm: 1996163 1Milliliter 11/04/2016 N o longer Active Kenalog 40 mg/mL suspension for injection RxNorm: 2663537 Milliliter 06/14/2015 No longer Active Immunizations No [...] Item Item Code Result Date GC/CHL PRB [id number] CHLM PROBE NEG 06/17/2014 GC/CHL PRB 2784798 GC [place] OBE NEG 06/17/2014 GC/CHL PRB 1763654 CHLM PROBE NEG 07/16/2013 GC/CHL PRB 3688171 GC [place] OBE NEG 07/16/2013 Review of Systems System [...] (CHYLMD T CODEY DNA AMP PROBE) CPT-4: 33904 09/06/2015 THER/PROPH/DIAG INJ SC/IM CPT-4: 72376 06/14/2015 TRIAMCINOLONE ACET I [place] NOS CPT-4: J3301 06/14/2015 C RAP A SC (STREP A ASSAY W/OPTIC) CPT-4: 83735 11/01/2014 BIOPSY SKIN LESION CPT- 4: 63148 07/26/2014 BIOPSY SKIN ADD-ON CPT- 4: 02561 07/26/2014 PREV VISIT EST AGE 4 0-64 CPT-4: 42660 03/09/2012 Vital Signs Date Vital 11/07/2017 Blood Pressure 1: 132/74 Code: 8480-6 BMI: 23.0 Code: 29695-0 Heart Rate 1: 69 bpm Height: 5'8" SpO2: 99% Weight: 151 lbs 11/04/2016 Heart Rate 1: 99 bpm Height: 5'8" SpO2: 98% Temperature: 37.1 (C) / 98.7 (F) 10/17/2016 Blood Pressure 1: 132/76 Code: 8480-6 BMI: 23.1 Code: 52889-8 Heart Rate 1: 102 bpm Height: 5'8" SpO2: 99% Weight: 152 lbs 09/06/2015 Blood Pressure 1: 138/84 Code: 8480-6 BMI: 22.4 Code: 84188-4 Heart Rate 1: 83 bpm Height: 5'8" SpO2: 96% Weight: 147 lbs 11/01/2014 Blood Pressure 1: 122/84 Code: 8480-6 BMI: 23.0 Code: 85612-6 Heart Rate 1: 92 bpm Height: 5'8" Weight: 151 lbs 07/26/2014 Blood Pressure 1: 118/72 Code: 8480-6 BMI: 22.5 Code: 60345-2 Heart Rate 1: 78 bpm Height: 5'8" Weight: 148 lbs 06/15/2014 Blood Pressure 1: 140/78 Code: 8480-6 BMI: 22.2 Code: 14453-9 Heart Rate 1: 80 bpm Height: 5'8" Weight: 146 lbs 07/15/2013 Blood Pressure 1: 128/76 Code: 8480-6 BMI: 21.9 Code: 56330-3 Heart Rate 1: 80 bpm Height: 5'8" Weight: 144 lbs 03/09/2012 Blood Pressure 1: 122/88 Code: 8480-6 BMI: 21.1 Code: 73476-6 Heart Rate 1: 73 bpm Height: 5'8" [...] None well woman exam (40-65 years) Breast /Coper Hand Complaints perimenopausal symptoms 03/09/2012 None well woman [...] Encounters Encounter Performer Loca tion Codes Date (08419) PREV VISIT E ST AGE 40-64 Diagnosis: Encounter for general adult medical examination with abnormal findings[ICD10: Z00.01] Diagnosis: Other ulcerative colitis without complications[ICD10: K51.80] [facility] CPT-4: 32880 11/07/2017 ([id number]) 97267 EST. P ATIENT, LEVEL III Diagnosis: Cough[ICD10: R05] Diagnosis: Acute bronchitis, unspecified[ICD10: J20.9] [facility] CPT-4: 16674 11/04/2016 ([id number]) PREV VISIT E AGE 40-64 Diagnosis: Encounter for gynecological examination (general) (routine) without abnormal findings[ICD10: Z01.419] [facility] CPT-4: 15995 10/17/2016 ([id number]) 54077 EST. P ATIENT, LEVEL III Diagnosis: ACUTE PHARYNGITIS[ICD9: 462] [facility] CPT- 4: 21441 11/01/2014 ([id number]) PREV VISIT E AGE 40-64 Diagnosis: ROUTINE GYNE EXAM[ICD9: V72.31] Diagnosis: Skin lesion[ICD9: 709.9] [facility] CPT-4: 69757 06/15/2014 ([id number]) PREV VISIT E AGE 40-64 Diagnosis: ROUTINE GYNE EXAM[ICD9: V72.31] [facility] CPT-4: 06472 07/15/2013 Plan of Care Planned Activity Notes [...] functioning. 10/17/2016 Appointment: Enedelia Blas WPtel: 101[address] [facility] Well Woman 10/17/2016 Patient Education: Patient Medication [...] 3 09/06/2015 Appointment: Do Green WPtel: [phone] [facility] Well Woman 09/06/2015 Patient Education: Patient Medication [...] this weekend. 07/26/2014 Appointment: Do Green WPtel: [facility] [facility] 07/26/2014 Patient Education: Patient [...] two months. 06/15/2014 Appointment: Do Green WPtel: [facility]5 [facility] Well Woman 06/15/2014 Patient Education: Patient Medication Summary Completed 06/15/2014 Care Plan: Referral Order SNOMED-CT : [id number] Ordered 06/15/2014 Care Plan: PAP Pending 06/15/2014 [...] prn. 07/15/2013 Appointment: Do Green [facility]el[facility] [facility] 07/15/2013 Patient Education: Patient [...] prn. 03/09/2012 Appointment: Do Green [facility]el[facility] Pap Only 03/09/2012 Patient Education: Patient [...] panel, CBC, and renal functioning. Declined Procedure: (92866) FLU VACC 4 JENNIFER 3 YRS PLUS IM; Declined Reason: Patient Declined Declined Procedure: (05806) FLU VAC NO PRSV 4 JENNIFER 3 [...]
--- OUTSIDE RECORDS SUMMARY | 2020-04-28 13:19 | XMS REPORT ---
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 Medications Active Name Start Date Estimated Completion Date SIG Co mments Humira subcutaneous simvastatin 10 mg oral tablet ta ke 1 tablet (10 mg) by oral route once daily in the evening Midol 500-25 mg oral tablet take 1 tablet by oral route every 4 hours tramadol oral Name Start Date Expiration Date SIG Comments Augmentin 875-125 mg oral tablet 04/01/2019 04/08/2019 take 1 tablet by oral route every 12 hours for 7 days Problem List Not available. Vital Signs Date Time BP-Sys(mm[Hg] BP-María(mm[Hg]) HR(bpm) RR(rpm) Temp WT HT HC BMI BSA BMI Percentile O2 Sat(%) 01/26/2020 1:16:00 PM 72 {beats}/min 98.9 F 99 % 08/25/2019 10:48:00 AM 138 mm[Hg] 82 mm[Hg] 80 {beats}/min 16 rpm 98.1 F 150.375 lbs 68 in 22.86 kg/m2 1.81 m2 100 % 04/01/2019 10:53:00 AM 124 mm[Hg] 68 mm[Hg] 75 {beats}/min 20 rpm 98.6 F 155 lbs 68 in 23.5674 kg/m2 1.8366 m2 98 % Social History Name Description Comments Tobacco Never smoker History of Procedures Date Ordered Description Order Status 04/01/2019 12:00 AM Decadron 4mg Injection Reviewed 04/01/2019 12:00 AM Depo-Medrol 40mg Injection Reviewed 04/01/2019 12:00 AM THER/PROPH/DIAG INJ SC/IM Reviewed 08/25/2019 12:00 AM Decadron 4mg Injection Reviewed 08/25/2019 12:00 AM Depo-Medrol 40mg Injection Reviewed 08/25/2019 12:00 AM THER/PROPH/DIAG INJ SC/IM Reviewed Results Summary Not available. History Of Immunizations Not available. History of Past Illness Name Date of Onset Comments Ulcerative colitis Hyperlipidemia Acute pansinusitis Apr 01 2019 10:55AM Upper respiratory infection Aug 25 2019 10:50AM Headache Jan 26 2020 11:04AM Sore throat Jan 26 2020 11:04AM Payers Insurance Name Company Name Plan Name Plan Number Policy Number [place] Group Number [id number] N/ A History of Encounters Visit Date Visit Type Provider 01/26/2020 Office visit Esha CHAKRABORTY RN 08/25/2019 Office visit Serena Vasquez APR N 04/01/2019 Office visit Esha CHAKRABORTY RN
--- OUTSIDE RECORDS SUMMARY | 2020-04-28 13:19 | XMS REPORT ---
Author Author Serena Elizabeth Organization [facility] Address [address] [place], [place] [id number] Care Team Providers Care Dog Control Officer Name Role Phone Esha Elizabeth PCP Allergies [...] tablet by oral route every 4 hours Macrobid 100 mg oral capsule 04/24/2020 05/01/2020 leslie e 1 capsule (100 mg) by oral route 2 times per day with food for 7 days Name Start Date Expiration Date SIG Comments Augmentin 875-125 mg oral tablet 04/01/2019 04/08/2019 take 1 tablet by oral route every 12 hours for 7 days Discontinued Name Start Date Discontinued Date SIG Comments tramadol oral 04/24/2020 Problem List Not available. Vital Signs Date Time BP-Sys(mm[Hg] BP-María(mm[Hg]) HR(bpm) RR(rpm) Temp WT HT HC BMI BSA BMI Percentile O2 Sat(%) 04/24/2020 11:40:00 AM 126 mm[Hg] 72 mm[Hg] 76 {beats}/min 18 rpm 99.7 F 158.125 lbs 68 in 24.0426 kg/m2 1.855 m2 100 % 01/26/2020 1:16:00 PM 72 {beats}/min 98.9 F 99 % 08/25/2019 10:48:00 AM 138 mm[Hg] 82 mm[Hg] 80 {beats}/min 16 rpm 98.1 F 150.375 lbs 68 in 22.86 kg/m2 1.81 m2 100 % 04/01/2019 10:53:00 AM 124 mm[Hg] 68 mm[Hg] 75 {beats}/min 20 rpm 98.6 F 155 lbs 68 in 23.5674 kg/m2 1.8366 m2 98 % Social History Name Description Comments Tobacco Never smoker 04/24/2020 - History of Procedures Date Ordered Description Order Status 04/01/2019 12:00 AM Decadron 4mg Injection Reviewed 04/01/2019 12:00 AM Depo-Medrol 40mg Injection Reviewed 04/01/2019 12:00 AM THER/PROPH/DIAG INJ SC/IM Reviewed 08/25/2019 12:00 AM Decadron 4mg Injection Reviewed 08/25/2019 12:00 AM Depo-Medrol 40mg Injection Reviewed 08/25/2019 12:00 AM THER/PROPH/DIAG INJ SC/IM Reviewed 01/26/2020 12:00 AM SARS-CoV-2 non-CDC lab test Reviewed 04/24/2020 11:48 AM URINALYSIS AUTO W/O SCOPE Reviewed 04/24/2020 12:00 AM URINE BACTERIA CULTURE Returned Results Summary Date and Description Results 04/24/2020 11:48 AM Clarity Ur clear Urine-Color lt yellow Glucose Ur-sCnc neg Bilirub Ur Ql neg Ketones Ur Ql Strip neg Sp Gr Ur Qn <=1.005 Hgb Ur Ql Strip Trace pH Ur-LsCnc 5.5 Prot Ur Ql Strip 30mg/dL Urobilinogen Ur-mCnc neg Nitrite Ur Ql Strip small History Of Immunizations Not available. History of Past Illness Name Date of Onset Comments Ulcerative colitis Hyperlipidemia Acute pansinusitis Apr 01 2019 10:55AM Upper respiratory infection Aug 25 2019 10:50AM Headache Jan 26 2020 11:04AM Sore throat Jan 26 2020 11:04AM Acute cystitis with hematuria Apr 24 2020 11:41AM Dysuria Apr 24 2020 11:41AM Urinary frequency Apr 24 2020 11:41AM Payers Insurance Name Company Name Plan Name Plan Number Policy Number Vinay cy Group Number Start Date [employer] [facility] [place] [id number] N/ A History of Encounters Visit Date Visit Type Provider 04/24/2020 Office visit Esha CHAKRABORTY RN 01/26/2020 Office visit Esha CHAKRABORTY RN 08/25/2019 Office visit Serena Vasquez APR N 04/01/2019 Office visit Esha CHAKRABORTY RN
--- OUTSIDE RECORDS SUMMARY | 2020-04-28 13:19 | XMS REPORT ---
Author Author Serena Elizabeth Organization [facility] Address [address] [place], [place] [id number] Care Team Providers Care Tax Accountant Name Role Phone Esha Elizabeth PCP Allergies and Adverse Reactions Name Reaction Notes Biaxin Plan of Treatment Planned Activity Comments Planned Date Planned Time Plan/Goal Urine culture and sensitivity 04/24/2020 12:00 AM Medications Active Name Start Date Estimated Completion [...] 11:48 AM URINALYSIS AUTO W/O SCOPE Reviewed Results Summary Date and Description Results 04/24/2020 [...] Vinay cy Group Number [id number] N/ A History of Encounters Visit Date Visit Type Provider 04/24/2020 Office visit Esha CHAKRABORTY RN 01/26/2020 Office visit Esha CHAKRABORTY RN 08/25/2019 Office visit Serena Vasquez APR N 04/01/2019 Office visit Esha CHAKRABORTY RN
--- OUTSIDE RECORDS SUMMARY | 2020-04-28 13:19 | XMS REPORT ---
Author Author Serena Elizabeth Organization [facility] Address [address] [place], [place] [id number] Care Team Providers Care Fisheries Technical Officer Name Role Phone Esha Elizabeth PCP [...] Number Vinay cy Group [id number] N/ A History of Encounters Visit Date Visit Type Provider 01/26/2020 Office visit Esha CHAKRABORTY RN 08/25/2019 Office visit Serena Vasquez APR N 04/01/2019 Office visit Esha CHAKRABORTY RN
--- OUTSIDE RECORDS SUMMARY | 2020-04-28 13:20 | XMS REPORT ---
Author Author Serena Elizabeth Organization [facility] Address [address] [place], [place] [phone] Care Team Providers Care Mix Mill Tender Name Role Phone Esha Elizabeth PCP Allergies and Adverse Reactions Name Reaction Notes Biaxin Plan of Treatment Not available. Medications Active Name Start Date Estimated Completion Date SIG Co mments Humira subcutaneous simvastatin 10 mg oral tablet ta ke 1 tablet (10 mg) by oral route once daily in the evening Augmentin 875-125 mg oral tablet 04/01/2019 04/08/2019 take 1 tablet by oral route every 12 hours for 7 days Problem List Not available. Vital Signs Date Time BP-Sys(mm[Hg] BP-María(mm[Hg]) HR(bpm) RR(rpm) Temp WT HT HC BMI BSA BMI Percentile O2 Sat(%) 04/01/2019 10:53:00 AM 124 mmHg 68 mmHg 75 bpm 20 rpm 98.6 F 155 lbs 68 in 23.5674 kg/m 1.8366 m 98 % Social History Name Description Comments Tobacco Never smoker History of Procedures Date Ordered Description Order Status 04/01/2019 12:00 AM Decadron 4mg Injection Reviewed 04/01/2019 12:00 AM Depo-Medrol 40mg Injection Reviewed 04/01/2019 12:00 AM THER/PROPH/DIAG INJ SC/IM Reviewed Results Summary Not available. History Of Immunizations Not available. History of Past Illness Name Date of Onset Comments Ulcerative colitis Hyperlipidemia Acute pansinusitis Apr 01 2019 10:55AM Payers Insurance Name Company Name Plan Name Plan Number Policy Number Vinay cy Group Number [id number] N/ A History of Encounters Visit Date Visit Type Provider 04/01/2019 Office visit Esha CHAKRABORTY RN
--- OUTSIDE RECORDS SUMMARY | 2020-04-28 13:20 | XMS REPORT | Continuity of Care Document ---
Demographics Preferred Language Unknown Marital Status Unknown Restorationist Affiliation Unknown Race Unknown Ethnic Group Unknown Author Organization Unknown Address Unknown Phone Unavailable Allergies Active Description Code Type Severity Reaction Onset Reported/Identified Relationship to Patient Clinical Status Yes NO KNOWN DRUG ALLERGIES - NKDA [id number] 1 CLASS N/A N/A Yes clarithromycin [id number] Dr galvan Allergy Unknown N/A 08/02/2008 Medications There is no data. Problems Date Dx Coded Attending Type Code Diagnosis Diagnosed By 04/05/2020 S D509 Iron deficiency anemia, unspecified 04/05/2020 S E538 Defic iency of other specified B group vitamins 04/05/2020 P K5190 Ulce rative colitis, unspecified, without complications 04/06/2020 LATIA COATS MD Ot Z12.31 ENCNTR SCREEN MAMMOGRAM FOR MALIGNANT NE Procedures There is no data. Results There is no data. Encounters ACCT No. Visit Date/Time Discharge Status Pt. Type Provider Facility Loc./Unit Complaint [id number] 04/24/2020 16:12:19 Document Registration [id number] 04/05/2020 08:10:05 Document Registration [id number] 01/26/2020 16:02:47 Document Registration [id number] 07/22/2018 08:04:14 Document Registration [id number] 07/21/2018 08:03:21 Document Registration [id number] 07/16/2018 08:34:03 Document Registration [id number] 07/16/2018 08:32:27 Document Registration [id number] 12/09/2017 08:19:02 Document Registration [id number] 12/09/2017 08:16:01 Document Registration [id number] 04/25/2020 05:39:00 020 13:28:00 DIS Outpatient LATIA COATS MD Via [facility] PREOP DYSFUNCTIONAL U TERINE BLEEDING [id number] 04/04/2020 12:42:00 020 23:59:59 CLS Outpatient LATIA COATS MD [facility] RAD SCREENING [id number] 04/28/2020 14:15:00 P EN Preadmit LATIA COATS MD Via [facility] DYSFUNCTIONAL UTERINE BLEEDI NG.VAG. WALL MASS [id number] 04/24/2020 12:36:04 04/24/2020 23:59: 59 CLS Outpatient Abril España [id number] 01/26/2020 14:05:06 01/26/2020 23:59: 59 [facility] Outpatient Abril España [id number] 08/25/2019 11:45:36 08/25/2019 23:59: 59 CLS Outpatient Ignacio Vasquez [id number] 04/01/2019 11:35:29 04/01/2019 23:59: 59 [facility] Outpatient Abril España
--- OUTSIDE RECORDS SUMMARY | 2020-04-28 13:20 | XMS REPORT ---
Author Author Serena Vasquez [facility] Address [address] [place], [place] [address] Care Team Providers Care Seed Cone Picker Name Role Phone Serena Vasquez PCP Allergies and Adverse Reactions Name Reaction Notes Biaxin Plan of Treatment Not available. Medications Active Name Start Date Estimated Completion Date SIG Co mments Humira subcutaneous simvastatin 10 mg oral tablet ta ke 1 tablet (10 mg) by oral route once daily in the evening Name Start Date Expiration Date SIG Comments Augmentin 875-125 mg oral tablet 04/01/2019 04/08/2019 take 1 tablet by oral route every 12 hours for 7 days Problem List Not available. Vital Signs Date Time BP-Sys(mm[Hg] BP-María(mm[Hg]) HR(bpm) RR(rpm) Temp WT HT HC BMI BSA BMI Percentile O2 Sat(%) 08/25/2019 10:48:00 AM 138 mm[Hg] 82 mm[Hg] 80 {beats}/min 16 rpm 98.1 F 150.375 lbs 68 in 22.8642 kg/m2 1.809 m2 100 % 04/01/2019 10:53:00 AM 124 mm[Hg] 68 mm[Hg] 75 {beats}/min 20 rpm 98.6 F 155 lbs 68 in 23.57 kg/m2 1.84 m2 98 % Social History Name Description [...] Upper respiratory infection Aug 25 2019 10:50AM Payers Insurance Name Company Name Plan Name Plan Number Policy Number Vinay cy Group Number Start Date [facility] [id number] N/ A History of Encounters Visit Date Visit Type Provider 08/25/2019 Office visit Serena Vasquez APR N 04/01/2019 Office visit Esha CHAKRABORTY RN
--- NOTE | 2020-04-28 13:41 | Progress Note-Pre Operative ---
Pre-Operative Progress Note H&P Reviewed The H&P was reviewed, patient examined and no changes noted. Date Seen by Provider: Apr 28, 2020 Time Seen by Provider: 13:41 Date H&P Reviewed: Apr 28, 2020 Time H&P Reviewed: 13:41 Pre-Operative Diagnosis: DUB/Mas in uterus/vaginal wall mass LATIA COATS MD Apr 28, 2020 13:41
[2020-04-28] MEDS ORDERED: D5 LR IV SOLUTION 1,000 ML IV SCH (13:42)
--- NOTE | 2020-04-28 13:42 | Progress Note-Post Operative ---
Post-Operative Progess Note Surgeon (s)/Deck Hand (s) Surgeon LATIA COATS MD Deck Hand: RN Pre-Operative Diagnosis DUB/Mas in uterus/vaginal wall mass Post-Operative Diagnosis same with pathology pending Procedure & Operative Findings Date of Procedure 04/28/20 Procedure Performed/Findings hysteroscopy with directed biopsy and with D&C / partial vaginectomy Anesthesia Type geta Estimated Blood Loss Estimated blood loss (mL): 100 mL Specimens/Packing Specimens Removed Intrauterine curettings and directed biopsy and vaginal wall segment including vaginal wall cystic mass LATIA COATS MD Apr 28, 2020 13:42
[2020-04-28] MEDS ORDERED: IBUP-1780 PO (13:44)
[2020-04-28] MEDS ORDERED: OXYC1TAB87 PO (13:44)
[2020-04-28] MEDS ORDERED: oxyCODONE/APAP 5/325MG (PERCOCET 5) TABLET PO PRN (13:45)
[2020-04-28] MEDS ORDERED: PROMETHAZINE INJ 25 MG/ML (PHENERGAN) AMP IM ONE (13:45)
[2020-04-28] MEDS ORDERED: ONDANSETRON 4 MG/2 ML (SDV) Z0FRAN IVP PRN ×2 (13:45→14:30)
[2020-04-28] MEDS ORDERED: KETOROLAC 30 MG/ML VIAL IVP ONE (13:45)
[2020-04-28] MEDS ORDERED: MEPERIDINE (DEMEROL) INJ 100 MG/ML IM ONE (13:45)
--- NOTE | 2020-04-28 13:45 | Discharge Inst-Surgical ---
Discharge Inst-Surgical Depart Medication/Instructions New, Converted or Re-Newed RX: RX on Chart Consults/Follow Up Patient Instructions: as directed Orders & Referrals Follow Up Appt: Call to make follow up appt. for patient in 2 weeks. Activity: Rest for 24 hours, than as tolerated. Please call in RX to patient pharmacy. Diet: As tolerated shower or tub bathe as desired. No driving for 24 hours, no alcoholic beverages for 24 hours, and nothing per vagina (no tampons, douching, or intercourse) for 2 weeks. Patient to return to the clinic as soon as possible for: Temperature greater than 101F, Severe Pain, Foul discharge from incision or vagina, Excessive Bleeding (more than a period). Activity Activity as Tolerated: No Diet Discharge Diet: No Restrictions LATIA COATS MD Apr 28, 2020 13:45
[2020-04-28] MEDS ORDERED: ONDANSETRON 4 MG/2 ML (SDV) Z0FRAN ONE (14:17)
[2020-04-28] MEDS ORDERED: KETOROLAC 30 MG/ML VIAL ONE (14:17)
[2020-04-28] MEDS ORDERED: MEPERIDINE (DEMEROL) INJ 50 MG/ML IVP ONE (14:30)
[2020-04-28] MEDS ORDERED: fentaNYL INJECTION 100 MCG/2 ML AMP IVP ONE (14:30)
[2020-04-28] MEDS ORDERED: morphine INJ 10 MG/ML 1ML (SYR OR VIAL) IVP ONE (14:30)
--- NOTE | 2020-04-28 14:31 | Anesthesia-General Post-Op ---
General Patient Condition Mental Status/LOC: Same as Preop Cardiovascular: Satisfactory Nausea/Vomiting: Absent Respiratory: Satisfactory Pain: Controlled Complications: Absent Post Op Complications Complications None Follow Up Care/Instructions Patient Instructions None needed. Anesthesia/Patient Condition Patient Condition Patient is doing well, no complaints, stable vital signs, no apparent adverse anesthesia problems. No complications reported per nursing. DANIAL BENAVIDES CRNA Apr 28, 2020 14:31
[2020-04-28] MEDS ORDERED: NITR-65 PO (14:38)
[2020-04-28] MEDS ORDERED: oxyCODONE/APAP 5/325MG (PERCOCET 5) TABLET ONE (15:37)
--- NOTE | 2020-04-29 00:27 | OPERATIVE REPORT ---
DATE OF SERVICE: 04/28/2020 PREOPERATIVE DIAGNOSES: Dysfunctional uterine bleeding and vaginal wall mass with rather intrauterine mass. POSTOPERATIVE DIAGNOSES: Dysfunctional uterine bleeding and vaginal wall mass with rather intrauterine mass with pathology pending. OPERATIVE PROCEDURES: Hysteroscopy with directed biopsy and D and C as well as partial vaginectomy. OPERATIVE DESCRIPTION: With the patient in the supine position under satisfactory general anesthesia, she was repositioned in a dorsal lithotomy position and then prepped and draped in the usual fashion for vaginal surgery after being positioned with the bette cane stirrup. The urinary bladder was drained with a straight catheter. Weighted speculum placed in posterior fornix of vagina, cervix exposed and grasped anteriorly with single tooth tenaculum. Uterus was sounded to 11 cm with uterine sound. The cervix was then serially dilated with Ricardo dilators to accommodate a hysteroscope, which was introduced and using LR as a distending medium and the endometrial cavity was examined. There was a large exophytic polypoid lesion emanating from the posterior uterine segment. This was biopsied and taken several human resources representative sections and sent to pathology as posterior uterine wall polypoid tissue. The endometrial cavity was then sharply curettaged in all four quadrants to remove the balance of that tissue as well as the other tissue. Both tubal ostia were seen and were normal. There were no other abnormal masses in the uterus. After the curettage, the hysteroscope was reintroduced. There was no significant bleeding. There was no remaining abnormal pathology. The hysteroscope was removed as was the tenaculum. There was minimal bleeding from the cervical os. There was no bleeding from the puncture sites from the tenaculum. The patient had a 1 x 2 cm right anterior lateral vaginal wall cystic mass that actually appeared to be microcystic. This was grasped and elevated. An incision was made elliptically around the base of it and the dissection was carried carefully under this mass into the paravaginal tissue and paravaginal space taking care to avoid the bladder, vascular structures and intestinal structures. With the lesion eventually excised, it was sent to pathology for permanent section. The defect was then closed with a running locked suture of 3-0 Vicryl Rapide. Hemostasis was complete. Reapproximation was complete. Sponge and needle counts were correct on completion of the procedure. Estimated blood loss was around 30 mL. The patient tolerated the procedure well and was uneventfully to awaken from her general anesthesia and transferred to the recovery room in stable condition with plans for discharge home PAR. Job ID: [id number] DocumentID: [id number] Dictated Date: 04/28/2020 14:24:21 Bulldozer Operator Date: 04/28/2020 23:14:43 Dictated By: LATIA COATS MD
== END 2020-04-28 16:05 | disposition home or self-care (01) ==
LOC: SDC 12:10
PROVIDERS: ATTEND Obstetrics & Gynecology
DX: N93.8 Other specified abnormal uterine and vaginal bleeding (principal); Q52.4 Other congenital malformations of vagina; N84.0 Polyp of corpus uteri
CPT/HCPCS: 36415; 84443; 84703; 85025; 87081; 88304; 88305

== ENCOUNTER → 2020-12-05 | Outpatient (CLI) | payer BC ==
[~2020-12-05] MED LIST changes: +IBUP-1780 PO; +NITR-65 PO; +OXYC1TAB87 PO
== END ==
LOC: CARD 09:00
PROVIDERS: ATTEND Internal Medicine Cardiovascular Disease
DX: I08.2 Rheumatic disorders of both aortic and tricuspid valves (principal)
CPT/HCPCS: 93306; 93351

== ENCOUNTER → 2021-06-29 | Outpatient (CLI) | payer BC ==
--- NOTE | 2021-06-29 13:44 | Diagnostic Imaging Report ---
Digital mammogram bilateral screening. This study was compared to the prior exams of 04/04/2020 and 07/20/2014. At this time, there are no current complaints. The current study was also evaluated with a Computer Aided Detection (CAD) system. FINDINGS: The fibroglandular tissue in both breasts is heterogeneously dense. This does limit the sensitivity of this exam. Overall, there does not appear to have been any significant change when compared to the prior study. No primary or secondary sign of malignancy is noted. IMPRESSION: There is no radiographic evidence for malignancy. ACR category 1 ACR BI-RADS Category 1: Negative. Result letter will be mailed to the patient. Note: At least 10% of breast cancer is not imaged by mammography. Dictated by: Dictated on workstation # [id number]
== END ==
LOC: RAD 10:00
PROVIDERS: ATTEND Obstetrics & Gynecology
DX: Z12.31 Encounter for screening mammogram for malignant neoplasm of breast (principal)
CPT/HCPCS: 77063; 77067

== ENCOUNTER → 2022-07-01 | Outpatient (CLI) | payer BC ==
--- NOTE | 2022-07-01 12:53 | Diagnostic Imaging Report ---
INDICATION: Routine screening. Comparison is made with prior mammogram 06/29/2021 and 04/04/2020. 2-D and 3-D bilateral screening mammography was performed with CAD. CAD is utilized. The current study was also evaluated with a Computer Aided Detection (CAD) system. Both breast are heterogeneously dense, limiting the sensitivity of mammography. No mass or malignant-appearing microcalcifications are seen. There are benign calcifications bilaterally. Axillae are unremarkable. IMPRESSION: BI-RADS Category 2 No mammographic features suspicious for malignancy are identified. ACR BI-RADS Category 2: Benign findings. Result letter will be mailed to the patient. Note: At least 10% of breast cancer is not imaged by mammography. Dictated by: Dictated on workstation # [id number]
== END ==
LOC: RAD 09:59
PROVIDERS: ATTEND Obstetrics & Gynecology
DX: Z12.31 Encounter for screening mammogram for malignant neoplasm of breast (principal)
CPT/HCPCS: 77063; 77067